=== PATIENT | female | born 1960 | race Caucasian/White ===

== ENCOUNTER 2019-10-07 15:47 | Outpatient (CLI) | payer MEDICARE, SELFPAY ==
--- NOTE | 2019-10-07 15:45 | USCV_ITS ---
Danae Blas Age: 59 Gender: F : 1960 Exam Date: 10/07/2019 16:10 Ordering Phys: Chai Arechiga MD ([email or web address]) Technologist: Prabhakar Powell Exam Location: [facility] – [place] Indication: SOB SOB BP: 130 / 89 HR: 60 Rhythm: Sinus Technical Quality: Fair MEASUREMENTS (Male / Female) Normal Values 2D ECHO LV Diastolic Diameter PLAX 3.5 cm 4.2 - 5.9 / 3.9 - 5.3 cm LV Systolic Diameter PLAX 2.0 cm IVS Diastolic Thickness 1.0 cm 0.6 - 1.0 / 0.6 - 0.9 cm IVS Systolic Thickness 1.4 cm LVPW Diastolic Thickness 1.0 cm 0.6 - 1.0 / 0.6 - 0.9 cm LVPW Systolic Thickness 1.5 cm LVOT Diameter 2.2 cm LV Ejection Fraction 2D Teich 74.2 % LV Ejection Fraction MOD 2C 67.8 % LV Ejection Fraction 2C AL 67.5 % LA Diameter 4.3 cm LA Width 3.7 cm LA Height 4.2 cm RA Width 3.6 cm RA Height 4.5 cm M-MODE LV Diastolic Diameter MM 5.5 cm 4.2 - 5.9 / 3.9 - 5.3 cm LV Systolic Diameter MM 3.2 cm LV Ejection Fraction MM Teich 72.4 % IVS Diastolic Thickness MM 1.0 cm 0.6 - 1.0 / 0.6 - 0.9 cm IVS Systolic Thickness MM 1.5 cm LVPW Diastolic Thickness MM 1.2 cm 0.6 - 1.0 / 0.6 - 0.9 cm LVPW Systolic Thickness MM 2.1 cm RV Diastolic Diameter MM 1.4 cm Aortic Annulus Diameter 4.0 cm LA Ao Ratio MM 1.1 MV E Point Septal Separation 1.3 cm DOPPLER AV Peak Velocity 160.0 cm/s LVOT Peak Velocity 93.0 cm/s AV Area Cont Eq vti 2.7 cm squared AV Area Cont Eq pk 2.1 cm squared MV Area PHT 5.0 cm squared Mitral E to A Ratio 0.8 MV E' Velocity 7.0 cm/s Mitral E to MV E' Ratio 14.1 Mitral E to LV E' Lateral Ratio 12.4 Mitral E to LV E' Septal Ratio 16.5 TR Peak Velocity 283.0 cm/s TR Peak Gradient 32.1 mmHg Right Atrial Pressure 3.0 mmHg Pulmonary Artery Systolic Pressu 35.0 mmHg FINDINGS Left Ventricle Normal left ventricular cavity size. Normal left ventricular systolic function. Left ventricular ejection fraction is estimated at 65 %. No regional wall motion abnormalities. Grade I/IV diastolic dysfunction (abnormal relaxation filling pattern), normal to mildly elevated filling pressures. Right Ventricle The right ventricle is normal in size and function. Right Atrium The right atrium is normal in size. Left Atrium The left atrium is normal in size. Mitral Valve Thickened mitral valve. No mitral valve stenosis. Moderate mitral annular calcification. No mitral valve regurgitation. Aortic Valve Structurally normal aortic valve without significant sclerosis or stenosis. There is no aortic regurgitation. Tricuspid Valve Structurally normal tricuspid valve without significant stenosis or regurgitation. Pulmonary artery systolic pressure is normal. Pulmonic Valve Structurally normal pulmonic valve without significant stenosis. There is no pulmonic regurgitation. Pericardium Normal pericardium without effusion. Aorta Normal ascending aorta dimension. CONCLUSIONS 1-Normal left ventricular cavity size. Normal left ventricular systolic function. Left ventricular ejection fraction is estimated at 65 %. No regional wall motion abnormalities. Grade I/IV diastolic dysfunction (abnormal relaxation filling pattern), normal to mildly elevated filling pressures. 2-Thickened mitral valve. No mitral valve stenosis. Moderate mitral annular calcification. No mitral valve regurgitation. 3-No significant valve abnormalities. 4-There is no pericardial effusion. 5-Pulmonary artery systolic pressure is within normal limits. 6-No significant change since the prior echocardiogram study of 01/15/2018. Chai Arechiga MD (Electronically Signed) Final Date: 07 Oct 2019 17:00 S
== END 2019-10-07 15:48 | disposition home or self-care (01) ==
LOC: RAD 15:52
PROVIDERS: PCP Internal Medicine; Visit Provider Internal Medicine Cardiovascular Disease
DX: R06.02 Shortness of breath (principal); I05.9 Rheumatic mitral valve disease, unspecified
CPT/HCPCS: 93306

== ENCOUNTER 2019-10-17 10:38 | Outpatient (CLI) | payer MEDICARE, SELFPAY ==
--- NOTE | 2019-10-17 10:56 | MR_ITS ---
WS: [id number] MRI LUMBAR SPINE NONCONTRAST HISTORY: DDD / LUMBOSACRAL SPINE W/ RADICULOPATHY, RIGHT leg pain and numbness. COMPARISON: 08/27/2017 TECHNIQUE: Sagittal and axial multisequence imaging is submitted. Mild S-shaped curvature thoracolumbar spine. Lumbar curvature with convexity to the LEFT. The L5 vertebral body is partially sacralized versus 4 lumbar vertebral bodies. If surgery is contemp lated in this patient this numbering pattern and correlation with this MRI would be very important. Mild disc space desiccation at L3-4, L4-5 with a rudimentary disc at L5-S1. Conus terminates normally at mid L1. L1-L2: Normal. L2-L3: Normal. L3-L4: Mild asymmetric bulging of the disc. There is increased soft tissue in and moderate stenosis o f the RIGHT foramen. Increased soft tissue in the RIGHT foramen may be secondary disc protrusion or m ild enlargement of the nerve root. At the disc level there is no significant central stenosis. Just i nferior to the disc level there is mild central and subarticular recess stenosis. Increase fluid in t he facet joints. L4-L5: Diffuse annular disc bulging. Ligamentum flavum hypertrophy. There is moderate central, subart icular recess stenosis with mild bilateral foraminal stenosis. Increase fluid in the facet joints. L5-S1: Small rudimentary disc. MR/MR lumbar spine wo con* [id number] IMPRESSION: 1. L5 vertebral body is partially sacralized versus 4 lumbar vertebral bodies. Numbering pattern will be very important if surgery is contemplated in this pa tient to ensure the correct levels are evaluated. Rudimentary ribs are noted at T12 on a prior CT from 08/27/2017. 2. Moderate central, subarticular recess stenosis and mild foraminal stenosis at L4-5 due to combination of factors. 3. Mild central, subarticular recess stenosis at L3-4 with moderate RIGHT fora yadi stenosis. There may be a small disc protrusion in the RIGHT foramen or mi ld enlargement of the nerve. 4. Increase fluid in the facet joints of L3-4 and L4-5.
== END 2019-10-17 10:39 | disposition home or self-care (01) ==
PROVIDERS: PCP Internal Medicine; Visit Provider Internal Medicine
DX: M51.17 Intervertebral disc disorders with radiculopathy, lumbosacral region (principal); M79.604 Pain in right leg; M46.96 Unspecified inflammatory spondylopathy, lumbar region; M48.061 Spinal stenosis, lumbar region without neurogenic claudication
CPT/HCPCS: 72148

== ENCOUNTER → 2019-10-19 10:56 | Outpatient (BNVA) | payer MEDICARE, SELFPAY | PROVIDERS: PCP Internal Medicine; Referring Provider Internal Medicine; Visit Provider Internal Medicine Critical Care Medicine | DX: D86.0 Sarcoidosis of lung (principal) | CPT/HCPCS: 36415; 82164 ==

== ENCOUNTER → 2019-10-27 13:32 | Outpatient (BNVA) | payer MEDICARE, SELFPAY | PROVIDERS: PCP Internal Medicine; Referring Provider Internal Medicine; Visit Provider Anesthesiology Pain Medicine | DX: M54.9 Dorsalgia, unspecified (principal); M54.41 Lumbago with sciatica, right side | CPT/HCPCS: 99204 ==

== ENCOUNTER → 2020-01-20 09:01 | Outpatient (BNVA) | payer MEDICARE, SELFPAY | PROVIDERS: PCP Internal Medicine; Visit Provider Internal Medicine | DX: Z11.59 Encounter for screening for other viral diseases (principal) | CPT/HCPCS: 87635 ==

== ENCOUNTER 2020-01-24 10:06 | Outpatient (CLI) | payer MEDICARE, SELFPAY ==
--- NOTE | 2020-01-24 10:12 | MM_ITS ---
WS: [id number] BILATERAL SCREENING DIGITAL MAMMOGRAM WITH CAD HISTORY: SCREENING COMPARISON: 10/22/2018 and 05/28/2017 Bilateral CC and MLO views submitted. Computer aided detection analyzed. Breast composition: There are scattered areas of fibroglandular density. No suspicious masses, microc alcifications or architectural distortion. Benign calcifications in each breast. MM/[place] [id number] IMPRESSION: BI-RADS: 2-Benign FOLLOW UP: 1 Year Follow-up
== END 2020-01-24 10:07 | disposition home or self-care (01) ==
LOC: RADSHAW 10:10
PROVIDERS: PCP Internal Medicine; Visit Provider Internal Medicine
DX: Z12.31 Encounter for screening mammogram for malignant neoplasm of breast (principal)
CPT/HCPCS: 77067

== ENCOUNTER 2020-01-24 10:40 | Outpatient (CLI) | payer MEDICARE, SELFPAY ==
--- NOTE | 2020-01-24 13:55 | PFTS_ITS ---
Date of Study:01/24/20 Date of Dictation: MECHANICS: Forced vital capacity (FVC) is . Normal Forced expiratory volume in one second (FEV1) is . Normal FEV1/FVC is Normal FLOW VOLUME LOOP: . Normal . LUNG VOLUMES: Total lung capacity (TLC) is . Normal. Residual volume (RV) is . Normal. DIFFUSING CAPACITY FOR CARBON MONOXIDE:. Normal . INTERPRETATION: The pulmonary function tests are Normal MTDD
== END 2020-01-24 10:41 | disposition home or self-care (01) ==
LOC: RT 10:41
PROVIDERS: PCP Internal Medicine; Visit Provider Internal Medicine Critical Care Medicine
DX: D86.9 Sarcoidosis, unspecified (principal)
CPT/HCPCS: 94010; 94726; 94729

== ENCOUNTER → 2020-03-15 12:48 | Outpatient (BNVA) | payer MEDICARE, SELFPAY | PROVIDERS: PCP Internal Medicine; Visit Provider Dermatology | DX: D48.9 Neoplasm of uncertain behavior, unspecified (principal) | CPT/HCPCS: 88304 ==

== ENCOUNTER 2020-04-03 11:24 | Outpatient (CLI) | payer MEDICARE, SELFPAY ==
--- NOTE | 2020-04-03 11:34 | XR_ITS ---
WS: [id number] Exam: XR chest 2V* [id number] Date/Time of Exam: 04/03/2020 11:36 AM Reason For Exam: COUGH/WHEEZE Comparison 10/12/2018. The lungs are clear and fully expanded. Normal cardiomediastinal structures and bony elements. Extens ollie calcified pulmonary and mediastinal granulomas. No pleural effusions. XR/XR chest 2V* [id number] IMPRESSION: 1. No acute cardiopulmonary finding. 2. Extensive healed granulomatous disease.
== END 2020-04-03 11:25 | disposition home or self-care (01) ==
LOC: RAD 11:29
PROVIDERS: PCP Internal Medicine; Visit Provider Internal Medicine
DX: R05 Cough (principal); R06.2 Wheezing
CPT/HCPCS: 71046

== ENCOUNTER 2020-05-29 13:12 | Outpatient (CLI) | payer MEDICARE, SELFPAY ==
--- NOTE | 2020-05-29 13:22 | XR_ITS ---
WS: [id number] CHEST 2 VIEWS HISTORY: COUGH COMPARISON: 04/03/2020 Lungs: Well aerated lungs. There are extensive calcifications in the mediastinum and hilar and along the diaphragmatic surfaces bilaterally. Probably due to prior granulomatous disease. No interval walters ge. Cardiac size: Normal. Mediastinum/Aorta: Mild atherosclerosis aorta. Extensive calcified mediastinal and hilar lymph nodes. Bones: Normal. XR/XR chest 2V* [id number] IMPRESSION: 1. Stable chest with no acute cardiopulmonary disease. 2. Extensive mediastinal and hilar and diaphragmatic calcifications from prior granulomatous disease.
== END 2020-05-29 13:13 | disposition home or self-care (01) ==
LOC: RADWPI 13:20
PROVIDERS: PCP Internal Medicine; Visit Provider Nurse Practitioner Family
DX: R05 Cough (principal)
CPT/HCPCS: 71046

== ENCOUNTER 2020-08-22 10:37 | Outpatient (CLI) | payer MEDICARE, SELFPAY ==
--- NOTE | 2020-08-22 10:53 | XR_ITS ---
WS: [id number] Chest 2 views, 08/22/2020 Clinical Data: SOB Comparison: PA and lateral chest, 05/29/2020. Findings: No nodules, masses or effusions are seen. The heart is normal. The pulmonary vascularity is not increased. No pneumonia or pneumothorax is seen. Extensive granulomatous calcifications are seen in both prashant and the lower lobes. XR/XR chest 2V* [id number] Impression: Old granulomatous disease.
[2020-08-22 11:37] LABS: Basophils # 0.1 10^3/uL (0.0-0.1); Basophils % 1.1 %; Eosinophils # 0.3 10^3/uL (0.0-0.8); Eosinophils % 3.5 %; Hematocrit 38.9 % (37.0-47.0); Hemoglobin 12.1 g/dL (11.5-15.3); Lymphocytes # 2.3 10^3/uL (0.8-4.8); Lymphocytes % 30.9 %; Mean Corpuscular HGB Conc 31.1 g/dL (30.0-36.0); Mean Corpuscular Hemoglobin 28.5 pg (28.0-34.0); Mean Corpuscular Volume 91.5 fL (81-99); Mean Platelet Volume 10.9 fL (7.4-10.4); Monocytes # 0.4 10^3/uL (0.2-0.9); Monocytes % 5.6 %; Neutrophils # 4.42 10^3/uL (1.8-7.7); Neutrophils % 58.6 %; Nucleated Red Blood Cells % 0 %; Platelet Count 280 10^3/cmm (130-400); Red Blood Count 4.25 10^6/uL (4.1-5.3); Red Cell Distribution Width 14.2 % (12.1-15.1); White Blood Count 7.5 10^3/uL (4.0-10.0)
[2020-08-23 16:47] LABS: Alternaria Alternata (M6) Ige <0.10 kU/L; Alternaria Class 0; Bermuda Class 0; Bermuda Grass (G2) Ige <0.10 kU/L; Cat Dander (E1) Ige <0.10 kU/L; Cat Dander Class 0; Common Ragweed (Short) (W1) Ig <0.10 kU/L; D. Farinae Class 0; Dermatophagoides Class 0; Dermatophagoides Farinae (D2) <0.10 kU/L; Dermatophagoides Pteronyssinus <0.10 kU/L; Dog Dander (E5) Ige <0.10 kU/L; Dog Dander Class 0; Elm (T8) Ige <0.10 kU/L; Elm Class 0; English Plantain (W9) Ige <0.10 kU/L; English Plantain Class 0; House Dust (Greer) (H1) Ige <0.10 kU/L; House Dust (Hollister- Stier) <0.10 kU/L; House Dust Class 0; Immunoglobulin E 128 kU/L (<OR=114); Johnson Grass (G10) Ige <0.10 kU/L; Johnson Grass Cl 0; June Grass Class 0; June Grass(Kentucky Blue) (G8) <0.10 kU/L; Lamb'S Quarters (Goose Foot) <0.10 kU/L; Lamb'S Quarters Class 0; Maple (Box Elder) (T1) Ige <0.10 kU/L; Maple Class 0; Meadow Fescue (G4) Ige <0.10 kU/L; Meadow Fescue Class 0; Mucor Racemosus Class 0; Oak (T7) Ige <0.10 kU/L; Oak Class 0; Orchard Grass (Cocksfoot) (G3) <0.10 kU/L; Penicillium Class 0; Penicillium Notatum (M1) Ige <0.10 kU/L; Perennial Rye Grass (G5) Ige <0.10 kU/L; Perennial Rye Grass Class 0; Ragweeed Class 0; Rough Marsh Elder (W16) Ige <0.10 kU/L; Rough Marsh Elder Class 0; Sweet Vernal Class 0; Sweet Vernal Grass (G1) Ige <0.10 kU/L; Timothy Grass (G6) Ige <0.10 kU/L; Timothy Grass Class 0
[2020-08-27 15:28] LABS: Aspergillus Fumigatus, Igg Ab, 11.3 mg/L (<=102)
[2020-08-27 16:33] LABS: Immunoglobulin E 149 kU/L (<OR=114)
== END 2020-08-22 10:38 | disposition home or self-care (01) ==
PROVIDERS: PCP Internal Medicine; Visit Provider Internal Medicine Critical Care Medicine
DX: R06.02 Shortness of breath (principal)
CPT/HCPCS: 36415; 71046; 82785; 85025; 86003

== ENCOUNTER 2020-08-30 08:36 | Outpatient (CLI) | payer MEDICARE, SELFPAY ==
--- NOTE | 2020-08-30 08:49 | CT_ITS ---
WS: [id number] CT NECK TECHNIQUE: Contrast-enhanced CT of the neck with coronal and sagittal reformatted images. CLINICAL INFORMATION: DYSPHONIA COMPARISON: None. DLP: 2464.[address] scans at [facility] use at least one of these dose optimization techniques: automat ed exposure control; mA and/or kV adjustment per patient size (includes targeted exams where dose is matched to clinical indication); or iterative reconstruction. FINDINGS: Left mastoids are well aerated. Opacification right mastoid air cells. Paranasal sinuses ar e well aerated. Right middle ear opacification. Parotid glands are normal. Normal submandibular glands. No cervical lymphadenopathy. Normal thyroid g land. Normal parapharyngeal fat. Normal posterior nasopharynx. No evidence of supraglottic or glottic mass. Subglottic airway is normal. Calcified mediastinal and hilar lymph nodes consistent with histo ry of sarcoidosis. A few patchy opacities in the upper lobes with slight nodularity likely due to farzana coidosis. Normal cervical spine. Calcified meningioma along the right frontal lobe measuring 12 mm appears unchanged compared to the [facility] MRI . Calcified right temporal meningioma also appears unchanged measuring [address]/CT neck w con* [id number] IMPRESSION: 1. Normal posterior nasopharynx. No evidence of supraglottic or glottic mass. Normal piriform sinuses. Normal subglottic airway. 2. Salivary glands are normal. 3. No cervical lymphadenopathy. 4. Calcified right frontal and right temporal meningiomas appear unchanged sin ce the prior MRI March 06, 2019 5. Complete opacification of the right mastoid air cells with right otitis med ia. Left mastoid air cells well aerated. 6. Paranasal sinuses are well aerated. 7. No cervical lymphadenopathy.
[2020-08-30] MEDS: iohexol 300 mg/mL 100 mL Btl IV (09:23)
== END 2020-08-30 08:37 | disposition home or self-care (01) ==
PROVIDERS: PCP Internal Medicine; Visit Provider Specialist
DX: R49.0 Dysphonia (principal)
CPT/HCPCS: 70491; Q9967

== ENCOUNTER → 2020-09-14 13:48 | Outpatient (BNVA) | payer MEDICARE, SELFPAY | PROVIDERS: PCP Internal Medicine; Visit Provider Internal Medicine Cardiovascular Disease | DX: Z01.812 Encounter for preprocedural laboratory examination (principal); Z20.822 Contact with and (suspected) exposure to COVID-19 | CPT/HCPCS: 87635 ==

== ENCOUNTER 2020-09-20 06:04 | Day surgery (SDC) | payer MEDICARE, SELFPAY ==
[2020-09-14 13:23] LABS: Basophils # 0.1 10^3/uL (0.0-0.1); Basophils % 1.1 %; Eosinophils # 0.3 10^3/uL (0.0-0.8); Eosinophils % 3.9 %; Hematocrit 38.6 % (37.0-47.0); Hemoglobin 12.1 g/dL (11.5-15.3); Lymphocytes # 2.2 10^3/uL (0.8-4.8); Lymphocytes % 29.2 %; Mean Corpuscular HGB Conc 31.3 g/dL (30.0-36.0); Mean Corpuscular Hemoglobin 28.1 pg (28.0-34.0); Mean Corpuscular Volume 89.6 fL (81-99); Mean Platelet Volume 11.2 fL (7.4-10.4); Monocytes # 0.7 10^3/uL (0.2-0.9); Monocytes % 9.2 %; Neutrophils # 4.17 10^3/uL (1.8-7.7); Neutrophils % 56.5 %; Nucleated Red Blood Cells % 0 %; Platelet Count 315 10^3/cmm (130-400); Red Blood Count 4.31 10^6/uL (4.1-5.3); Red Cell Distribution Width 13.6 % (12.1-15.1); White Blood Count 7.4 10^3/uL (4.0-10.0)
[2020-09-14 13:37] LABS: INR 1.01 (0.8-1.2)
[2020-09-14 13:46] LABS: Anion Gap 14.5 (5-19); Blood Urea Nitrogen 24 mg/dL (8-23); Carbon Dioxide 31 mmol/L (22-29); Chloride 94 mmol/L (98-107); Glomerular Filtration Rate 63.7 mL/min (90-130); Glucose 188 mg/dL (65-115); Osmolality Calculated 291 mOsm/kg (285-295); Potassium 3.5 mmol/L (3.5-5.1); Sodium 136 mmol/L (136-145)
[2020-09-20] VITALS (9 sets, daily range): BP systolic 123–156; BP diastolic 73–85; PULSE 76–96; RESP 14–23; TEMP 36.4–36.8; O2SAT 95–98; BMI 39.6
--- NOTE | 2020-09-20 06:00 | XACV_ITS ---
Exam Room: [facility] Ht: 157 cm Wt: 98 kg BSA: 2.13 m2 Gender: Female : 1960 Any Known Allergies: Sulfa Exam Priority: Routine Procedure(s): Procedure Description: Diagnostic procedure Procedure Description: Left Heart Catheterization Procedure Description: Right Heart Catheterization Procedure Description: O2 saturation Procedure Description: Pressure Wire Diagnostic Cath Status: Elective Diagnostic Findings * Left Main has no disease. * Left Anterior Descending has no disease. * Circumflex has no disease. * Mid Right Coronary Artery: obstructive 60% stenosis, LYNN: 3 flow. * Distal Right Coronary Artery: minimal 30% stenosis, LYNN: 3 flow. * Coronary angiography shows right dominance. Conclusions 1. Right heart cath 2. Right atrium 3. 9 mmHg 4. RV 48/2 30 mmHg meanPA mean 29 mmHgPCW 13 mmHgCardiac output by Henrietta 5Cardiac index 2.0No shunt or stepup notedMild precapillary pulmonary hypertension 5. . 6. FFR: After equalizing the distal and proximal pressure of FFR wire proximal to the lesion, mid and distal RCA lesion was crossed with FFR wire. IV adenosine at rate of 140 mcg/min was started. Patient did not compliant of any symptoms, at then end of two minutes FFR was recorded as 0.83, which is not significant . 7. Indication for 8. left heart 9. and right heart catheterization 10. : Worsening of 11. shortness of breath chest pain 12. despite of optimization of medicine 13. and the patient with history of 14. prior coronary artery disease.. 15. There is obstructive coronary artery disease with one vessel disease. 16. Hyperdynamic left ventricular systolic function. Ejection fraction of 70%. Recommendations * Continue current medical management and risk factor modification. Diagnostic RX Recommendation: medical therapy and/or counseling Ventriculography Ejection Fraction: 70.0 % Pressures Phase:Rest AO : 160 / 25 ( 86 ) @ 7:21:00 AM LV : 161 / -11 / 22 @ 7:19:00 AM 161 / -10 / 23 @ 7:19:00 AM 153 / -4 / 22 @ 7:20:00 AM 156 / -4 / 25 @ 7:20:00 AM RV : 48 / 2 / 13 @ 6:49:00 AM PA : 47 / 18 ( 29 ) @ 6:48:00 AM RA : a wave = 13 v wave = 12 mean = 9 @ 6:52:00 AM PCW : a wave = 18 v wave = 15 mean = 13 @ 6:49:00 AM O2 Content Phase:Rest PA : O2 Content O2: 61.9 @ 7:19:00 AM Saturations Phase:Rest AO : 88 @ 7:21:00 AM RA : 67 @ 7:19:00 AM RV : 62 @ 7:20:00 AM PA : 62 @ 7:19:00 AM Cardiac Output Phase:Rest Henrietta : 5 @ 8:45:58 AM Henrietta Cardiac Index: 2 @ 8:45:58 AM Flow Phase:Rest Qp : 5 @ 8:45:58 AM Qs : 6 @ 8:45:58 AM Clinical Evaluation EBL: 5mL-10mL Procedural Details Procedure Consent Obtained. Admit Source: Out Patient. Identified patient by full name and date of as verbalized by the patient/guarantor. Pre-Procedure Time Out. Does the consent match the physician's order: Yes. Accurate & Complete Informed Consent: Yes. Inpatient/Outpatient History & Physical on Chart: Yes. If H&P is completed, is and addenduem needed: Yes; If yes, is the addendum complete: N/A. Visualize and Verify Site with Patient/Guarantor: N/A. Relevant Radiology Images available: N/A. Pre-op teaching completed and patient verbalized understanding. The risks, benefits, and alternatives of sedation and/or procedure were discussed by physician. The patient agrees to continue. Procedure started. Correct patient, site and procedure confirmed by cath team. PERRLA. Strong, equal hand felt tipping machine tender bilaterally. Lungs clear x 5 lobes. IV Site on Arrival: 20 gauge in the right anticubital. IV Site on Arrival: 20 gauge in the left anticubital. Pre Procedural Pulses: bilateral dorsalis pedis was 3+. Pre Procedural Pulses: bilateral posterior tibial was 3+. Pre Procedural Pulses: bilateral radial was 3+. bilateral groins was prepped with chloroprep then draped in the usual sterile fashion. right radial was prepped with chloroprep then draped in the usual sterile fashion. Physician notified. Baseline sample Acquired. HR: 89 BPM. Physician arrived. Physician scrubbed in. Immediate Pre-Procedure Time Out. Correct Patient: Yes; Correct Procedure: Yes; Correct Site: Yes; Correct Patient Position: Yes; Correct Supplies: Yes; Dried Flammable Prep: Yes; Blood Products Available: N/A;. Sheath wire insterded through IV catheter. Lidocaine 1% infiltrated to the right brachial. Venous access obtained. [place] MON catheter inserted. [place] out. Lidocaine 1% infiltrated to the right radial. Arterial access obtained. A 5 [place] TIG catheter in over wire. Multiple views taken of left coronary artery. Catheter redirected to the RCA. Multiple views taken of right coronary artery. Catheter out. 6 [place] JR 4 guide catheter was inserted over the wire. FFR pressure wire inserted. pressure wire out. new pressure wire inserted. An FFR value of 0.83 was obtained for a lesion located at Mid RCA. Pressure wire out. Catheter out. A 5 [place] Angled Pig catheter in over wire. EDP Sample taken: LV 161/-11,22; HR: 91 BPM; SpO2: 99%. LV gram performed in BOLAND @ 10 mL/second for a total of 30 mL. EDP Sample taken: LV 153/-5,22; HR: 90 BPM; SpO2: 99%. Pullback taken: LV Off; AO Off; Mean: , Peak to Peak: , SEP: ; HR: 87 BPM; SpO2: 99%. TR band placed. Hemostasis obtained. PERRLA. Strong, equal hand felt tipping machine tender bilaterally. No VTE prophylaxis required. Medication's Wasted: Lidocaine 1% = 18 mL. Medication's Wasted: Other = adenosine 55.8 mg. Medication's Wasted: Heparin = 4000 units. Medication's Wasted: Nitro = 49.8 mg. Total IV fluids: 100 mL. Contrast type used: Omnipaque 300 mgI/mL, 500 mL bottle. Contrast Material : Omnipaque 142 ml. A TR Band was successful obtaining hemostatsis at the Right Radial artery insertion site. A Manual Compression was successful obtaining hemostatsis at the Right Brachial Vein insertion site. Post-op diagnosis: non obstructive CAD. Complications: none. Estimated blood loss: 5mL-10mL. [facility] Clinical Fraility Score: 3: Managing Well. Oracle Applications Developer Indications: Worsening Angina. Oracle Applications Developer Indications: Stable Known CAD. Chest Pain Symptom Assessment: Atypical Angina. Cardiovascular Instability: No,. Procedure completed. Patient transferred by wheelchair to ICU. Vital chart was stopped. Access Site Site: Right Brachial Vein Sheath Size: 6 Fr Hemostasis Method: Manual Compression Hemostasis Success: Successful Site: Right Radial artery Sheath Size: 6 Fr Hemostasis Method: TR Band Hemostasis Success: Successful Procedure Medications Start: 7:40 AM Stop: 7:40 AM Medication: Versed Amount: 1 mg Route: I.V. Start: 7:40 AM Stop: 7:40 AM Medication: Fentanyl Amount: 50 mcg Route: I.V. Start: 7:56 AM Stop: 7:56 AM Medication: Nitrogylcerin Amount: 200 mcg Route: I.A. Start: 8:00 AM Stop: 8:00 AM Medication: Versed Amount: 1 mg Route: I.V. Start: 8:00 AM Stop: 8:00 AM Medication: Fentanyl Amount: 50 mcg Route: I.V. Start: 8:04 AM Stop: 8:04 AM Medication: Heparin Amount: 2000 units Route: I.V. Start: 8:01 AM Stop: 8:01 AM Medication: Heparin Amount: 5000 units Route: I.V. I, the attending physician, have reviewed and verified all procedure medications. Yes, all medications given per verbal order History/Risk Factors Hypertension: Yes Dyslipidemia: Yes Myocardial Infarction (HI): Yes Tobacco Use: Never Prior Interventions PCI: Yes Report Signatures Finalized by Chai Arechiga MD on 10/02/2020 10:56 AM
[2020-09-20] MEDS: diphenhydrAMINE 50 mg Capsule PO (06:24)
--- NOTE | 2020-09-20 07:30 | P.HP_ITS ---
Same Day Surgery H&P Indication for Procedure/HPI DATE OF PROCEDURE: September 20, 2020 CHIEF COMPLAINT/INDICATIONFOR SURGICAL PROCEDURE: Unexplained shortness of breath with chest pressure PREOP DIAGNOSIS: Worsening of shortness of breath with chest pressure PLANNED PROCEDRUE: Operation Date: 09/20/20 07:00 Proposed Procedures p Cardiac Catheterization left and right 67082 R06.02(Not Applicable) - Chai Arechiga MD 60-year-old female past medical history significant for hypertension atherosclerotic disease pulmonary sarcoidosis is complaining of worsening of chest pain along with shortness of breath. Shortness of breath hindering the lifestyle. Patient declined offer for stress test. Despite of optimization of medicine patient continues to do worse. She has history of coronary artery disease. Would like to proceed with left and right heart cath to rule out pulmonary hypertension and obstructive disease. Patient has been explained all risk benefit and alternate for the procedure. Patient has been explained risk for major minor bleed urgent emergent surgery multiple transfusions stroke arrhythmia . She would like to proceed with it. Medications/Allergies* Home Medications Medication Instructions Recorded Confirmed Type amlodipine 5 mg tablet 5 mg PO DAILY 09/20/19 08/22/20 History ascorbic acid (vitamin C) 1,000 mg 1,000 mg PO DAILY tab 09/20/19 08/22/20 History tablet cinnamon bark 500 mg capsule 1,000 mg PO DAILY cap 09/20/19 08/22/20 History clopidogrel 75 mg tablet 75 mg PO DAILY 09/20/19 08/22/20 History furosemide 20 mg tablet 20 mg PO DAILY PRN 09/20/19 08/22/20 History metformin 1,000 mg tablet 1,000 mg PO BID 09/20/19 08/22/20 History omega-3 fatty acids 1,000 mg 1,000 mg PO DAILY 09/20/19 08/22/20 History capsule pantoprazole 40 mg tablet,delayed 40 mg PO DAILY 09/20/19 08/22/20 History release valsartan 320 1 tab PO DAILY 09/20/19 08/22/20 History mg-hydrochlorothiazide 25 mg tablet biotin 1,000 mcg chewable tablet 1,000 mcg PO DAILY 10/27/19 08/22/20 History gabapentin 100 mg capsule 100 mg PO TID cap 10/27/19 08/22/20 History verapamil 40 mg tablet 40 mg PO TID tab 10/27/19 08/22/20 History zinc 50 mg tablet 50 mg PO DAILY 10/27/19 08/22/20 History cholecalciferol (vitamin D3) 25 25 mcg PO DAILY 07/13/20 08/22/20 History mcg (1,000 unit) capsule melatonin 5 mg capsule 5 mg PO .HS cap 07/13/20 08/22/20 History potassium chloride 10 mEq 10 meq PO .every other day tab 07/13/20 08/22/20 History tablet,extended release vitamin B complex 1 tab PO DAILY 07/13/20 08/22/20 History albuterol sulfate 90 mcg/actuation 2 puff INHALATION Q6H PRN 08/22/20 08/22/20 History aerosol inhaler Allergies/Adverse Reactions Allergy/AdvReac Type Severity Reaction Status Date / Time Sulfa (Sulfonamide Allergy Unknown break out Verified 08/22/20 09:50 Antibiotics) and has trouble breathing Current Medications: Generic Name Dose Route Start Last Admin Trade Name Freq PRN Reason Stop Dose Admin Sodium Chloride 1,000 mls @ 50 mls/hr 09/20/20 06:00 09/20/20 06:18 Sodium Chloride 0.9% IV 09/21/20 01:59 Not Given .Q20H ONE Pertinent History/Comorbid Conditions* Medical History (Updated 07/17/20 @ 22:19 by Chai Arechiga MD) ASHD (arteriosclerotic heart disease) Chronic migraine Diabetes mellitus Diastolic heart failure History of VT (myocardial infarction) HTN (hypertension) Sarcoidosis Shortness of breath Surgical History (Updated 10/19/19 @ 10:48 by Brian Dean MD) History of elbow surgery History of heart artery stent S/P carpal tunnel release S/P hysterectomy Family History (Updated 10/19/19 @ 10:16 by Dorota Heck LPN) CAD (coronary artery disease) Father Sister Grandfather Family/Other Cancer Mother Father Family/Other Social History Smoking and tobacco status: never smoked Second hand smoke exposure: Yes Alcohol intake: current Alcohol intake frequency: holidays/special occasions only Alcohol type: wine Lives independently: Yes Household members: none Marital status: / Current occupational status: disabled Pets and animals: Yes Pets & animals: dog(s) History of recent travel: No Current gender identity: Female Pertinent Exam Findings alert, oriented x 3 and clear to auscultation bilaterally Conscious Sedation Assessment AIRWAY EVAL/ANESTHESIA PLAN: ASA II, Risks, benefits & alternatives of sedation and/or procedure discussed and Patient agrees to continue as planned Recommendations Surgery/Procedure today Coding Level of Care Code Acute Instrumentation And Controls Technician for Alcides Treviño
[2020-09-20] MEDS: zinc gluconate 50 mg Tablet PO (09:40)
--- NOTE | 2020-09-20 10:50 | PC.NURSE ---
3 ml air removed from TR band.
--- NOTE | 2020-09-20 11:39 | PC.NURSE ---
3 ml air removed from TR band
[2020-09-20] MEDS: ALPRAZolam 0.25 mg Tablet PO (11:53)
--- NOTE | 2020-09-20 11:53 | PC.NURSE ---
PT states that she feels short of breath, more so than usual, Dr. Arechiga in room with pt. New orders received. Xanax .25 given.
[2020-09-20] MEDS: potassium chloride ER 10 mEq Tablet PO (12:08)
[2020-09-20] MEDS: FUROsemide 10 mg/mL SDV 4mL 40 MG IVP (12:08)
--- NOTE | 2020-09-20 12:15 | PC.NURSE ---
3 ml air removed from TR band
--- NOTE | 2020-09-20 14:03 | PC.NURSE ---
TR band released of all air. Had pt wait an additional 20min, then walked the unit 2 times. No bleeding noted. IV removed and pt was allowed to get dressed in prep for discharge.
--- NOTE | 2020-09-20 14:44 | PC.NURSE ---
right brachial and radial artery show no signs of bleeding after monitoring. discharge instructions gone over with pt as well as appointments. Taken out to personal car where her son awaits via wheelchair.
== END 2020-09-20 14:43 | disposition home or self-care (01) ==
LOC: CCL 06:04 → ICU 09:42
PROVIDERS: PCP Internal Medicine; Visit Provider Internal Medicine Cardiovascular Disease
DX: I25.10 Atherosclerotic heart disease of native coronary artery without angina pectoris (principal); E11.9 Type 2 diabetes mellitus without complications; I11.0 Hypertensive heart disease with heart failure; I50.30 Unspecified diastolic (congestive) heart failure; I25.2 Old myocardial infarction; Z82.49 Family history of ischemic heart disease and other diseases of the circulatory system
CPT/HCPCS: 36415; 80048; 85025; 85610; 93453; 93571; C1751; C1769; C1887; C1894; J0153; J1644; J1940; J2250; J3010; J3490; J7030; Q0163; Q9967

== ENCOUNTER 2020-11-29 14:01 | Outpatient (CLI) | payer MEDICARE, SELFPAY ==
--- NOTE | 2020-11-29 14:14 | XR_ITS ---
WS: [id number] Chest 2 views, 11/29/2020 Clinical Data: COUGH Comparison: PA and lateral chest, 08/22/2020. Findings: No nodules, masses or effusions are seen. The heart is normal. The pulmonary vascularity is not increased. No pneumonia or pneumothorax is seen. There are extensive perihilar and lower lobe gr anulomas. XR/XR chest 2V* [id number] Impression: Old granulomatous disease.
== END 2020-11-29 14:02 | disposition home or self-care (01) ==
PROVIDERS: PCP Internal Medicine; Visit Provider Nurse Practitioner Family
DX: R05 Cough (principal); D71 Functional disorders of polymorphonuclear neutrophils
CPT/HCPCS: 71046

== ENCOUNTER 2021-01-06 13:00 | Observation (INO) | payer MEDICARE, SELFPAY ==
[2021-01-06] VITALS (9 sets, daily range): BP systolic 110–148; BP diastolic 68–78; PULSE 63–79; RESP 16–18; TEMP 36.6–36.7; O2SAT 93–97; BMI 34.2
--- NOTE | 2021-01-06 14:11 | ECG_ITS ---
[facility] Test Date: 2021-01-06 Pat Name: Danae Blas Department: Room: Gender: Female Seismic Engineer: : 1960 Requested By: Gael Victor Order Number: [id number] Rebel MD: Lea Anderson M.D. Measurements Intervals [place] Rate: 78 P: 20 ID: 175 QRS: -81 QRSD: 101 T: 22 QT: 399 QTc: 454 Interpretive Statements SINUS RHYTHM POSSIBLE LEFT ATRIAL ENLARGEMENT LEFT AXIS DEVIATION INCOMPLETE RIGHT BUNDLE BRANCH BLOCK SEPTAL MYOCARDIAL INFARCTION , OF INDETERMINATE AGE Compared to ECG 08/27/2017 18:20:47 Left-axis deviation now present Incomplete right bundle-branch block now present Myocardial infarct finding now present Indeterminate axis no longer present Electronically Signed On 01-07-2021 13:11:30 CDT by Lea Anderson M.D. [id number]
--- NOTE | 2021-01-06 14:11 | CTR_ITS ---
PROCEDURE INFORMATION: Exam: CT Head Without Contrast Exam date and time: 01/06/2021 2:11 PM Age: 60 years old Clinical indication: Syncope and collapse TECHNIQUE: Imaging protocol: Computed tomography of the head without contrast. Radiation optimization: All CT scans at this facility use at least one of these dose optimization techniques: automated exposure control; mA and/or kV adjustment per patient size (includes targeted exams where dose is matched to clinical indication); or iterative reconstruction. COMPARISON: MRI Head w/wo* [id number] 01/04/2015 10:52 AM RADIATION DOSE METRICS: Total DLP (mGy-cm): 620.76 FINDINGS: Brain: Normal. No hemorrhage. Mild low attenuation signal within the deep white matter tracts suggestive of chronic small vessel ischemic disease. No mass effect. Cerebral ventricles: No ventriculomegaly. Paranasal sinuses: Visualized sinuses are unremarkable. No fluid levels. Mastoid air cells: Right mastoid effusion without corresponding erosive changes. Orbital cavity: Post cataract surgical changes of the left globe. Bones/joints: Unremarkable. No acute fracture. Soft tissues: Unremarkable. CT/CT head wo con* [id number] IMPRESSION: 1. No acute intracranial abnormality. 2. Right mastoid effusion. Radiation Dose CTDIVOL = (mGy): DLP = 620.76 (mGy-cm)
--- NOTE | 2021-01-06 14:11 | CTR_ITS ---
PROCEDURE INFORMATION: Exam: CT Angiography Head With Contrast, Arteriography Exam date and time: 01/06/2021 2:11 PM Age: 60 years old Clinical indication: Syncope and collapse; Additional info: Evaluate for vessel diseases TECHNIQUE: Imaging protocol: Computed tomography angiography of the head with contrast. Exam focused on the arteries. 3D rendering (Not supervised by radiologist): MIP and/or 3D reconstructed images were created by the technologist. Radiation optimization: All CT scans at this facility use at least one of these dose optimization techniques: automated exposure control; mA and/or kV adjustment per patient size (includes targeted exams where dose is matched to clinical indication); or iterative reconstruction. Contrast material: OMNI 350; Contrast volume: 95 ml; Contrast route: INTRAVENOUS (IV); COMPARISON: CT head wo con* [id number] 01/06/2021 3:41 PM RADIATION DOSE METRICS: Total DLP (mGy-cm): 2070. FINDINGS: ANTERIOR CIRCULATION: Right internal carotid artery: Unremarkable. Intracranial segment is patent with no significant stenosis. No aneurysm. Right middle cerebral artery: Unremarkable. No occlusion or significant stenosis. No aneurysm. Right anterior cerebral artery: Unremarkable. No occlusion or significant stenosis. No aneurysm. Left internal carotid artery: Unremarkable. Intracranial segment is patent with no significant stenosis. No aneurysm. Left middle cerebral artery: Unremarkable. No occlusion or significant stenosis. No aneurysm. Left anterior cerebral artery: Unremarkable. No occlusion or significant stenosis. No aneurysm. POSTERIOR CIRCULATION: Right vertebral artery: Unremarkable. No occlusion or significant stenosis. No aneurysm. Left vertebral artery: Unremarkable. No occlusion or significant stenosis. No aneurysm. Basilar artery: Unremarkable. No occlusion or significant stenosis. No aneurysm. Right posterior cerebral artery: Unremarkable. No occlusion or significant stenosis. No aneurysm. Left posterior cerebral artery: Unremarkable. No occlusion or significant stenosis. No aneurysm. Brain: No definite mass, mass effect, or midline shift. Cerebral ventricles: No ventriculomegaly. Bones/joints: Unremarkable. No acute fracture. Soft tissues: Unremarkable. IMPRESSION: No large vessel stenosis or occlusion. PROCEDURE INFORMATION: Exam: CT Angiography Neck With Contrast Exam date and time: 01/06/2021 2:11 PM Age: 60 years old Clinical indication: Syncope and collapse; Additional info: Evaluate for vessel diseases TECHNIQUE: Imaging protocol: Computed tomography angiography of the neck with contrast. 3D rendering (Not supervised by radiologist): MIP and/or 3D reconstructed images were created by the technologist. Radiation optimization: All CT scans at this facility use at least one of these dose optimization techniques: automated exposure control; mA and/or kV adjustment per patient size (includes targeted exams where dose is matched to clinical indication); or iterative reconstruction. Contrast material: OMNI 350; Contrast volume: 95 ml; Contrast route: INTRAVENOUS (IV); COMPARISON: CT head wo con* [id number] 01/06/2021 3:41 PM RADIATION DOSE METRICS: Total DLP (mGy-cm): 2070.1 FINDINGS: Right common carotid artery: Atherosclerotic calcification and mild narrowing of the carotid bulb less than 50%. No dissection or occlusion. Right internal carotid artery: Mild narrowing of the proximal internal carotid artery less than 50% narrowing by NASCET criteria. No dissection or occlusion. Right external carotid artery: No occlusion or stenosis of the origin. Left common carotid artery: Atherosclerotic calcification and mild narrowing at the carotid bulb less than 50%. No dissection or occlusion. Left internal carotid artery: Mild narrowing at the proximal internal carotid artery less than 50% narrowing by NASCET criteria. No dissection or occlusion. Left external carotid artery: No occlusion or stenosis of the origin. Right vertebral artery: No stenosis. No dissection or occlusion. Left vertebral artery: No stenosis. No dissection or occlusion. Lymph nodes: Numerous calcified mediastinal lymph nodes are noted suggestive of prior granulomatous disease. Soft tissues: Normal. No significant soft tissue swelling. Bones/joints: No acute fracture. Lungs: Calcified granulomas noted in the right upper lobe. CT/CT angio headneck* [id number] IMPRESSION: Mild stenosis at the common carotid bulbs and proximal internal carotid arteries. No significant stenosis or occlusion. REFERENCES: NASCET CRITERIA. The degree of internal carotid artery stenosis is based on NASCET criteria. Normal is no stenosis. Mild is less than 50% stenosis. Moderate is 50-69% stenosis. Severe is 70% to 99% stenosis. Total occlusion is no detectable patent lumen. Radiation Dose CTDIVOL = (mGy): DLP = 2071.1~2071.1 (mGy-cm)
[2021-01-06] MEDS: sodium chloride 0.9% 500 ML IV (14:48)
[2021-01-06] MEDS: magnesium sulfate premix 2 GM/50 ML PIGGYBACK IV (14:48)
[2021-01-06] MEDS: diphenhydrAMINE 50 mg/mL SDV 1mL IVP (14:49)
[2021-01-06] MEDS: acetaminophen 500 mg Tablet PO (14:49)
--- NOTE | 2021-01-06 14:51 | W.ED.GENADLT ---
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 Patient says that she leans to her right side. The headache has been going on for the last 2 weeks has been gradually getting worse. Patient denies any focal weakness, diplopia, slurring of speech, facial droop. Patient denies any associated chest pain, shortness breath, palpitation with symptoms. Earlier today, patient was walking at home when she almost passed out twice. Patient denies any nausea vomiting, diarrhea, melena or hematochezia, or complaints at this time. Patient is followed by Dr. Flores in cardiology. Patient had an evaluation 2 weeks ago. Onset:2 weeks ago Duration:2 weeks Location:home Severity:moderate Review of Systems Narrative: Constitutional: No fever, no chills. HEENT: + photophobia CV: No chest pain, no palpitations PULM: no cough, no dyspnea. GI: No abdominal pain, no N/V/D. : No dysuria MSKEL: No muscle pain SKIN: No new rashes, no lesions. NEURO: +headache, no focal weakness. +light-headedness/+gait instability HEME: No visible bruises PSYCH: Normal mood PFSH ED PFSH: Medical History ASHD (arteriosclerotic heart disease) Chronic migraine Diabetes mellitus Diastolic heart failure History of [place] (myocardial infarction) HTN (hypertension) Sarcoidosis Shortness of breath Surgical History History of elbow surgery History of heart artery stent S/P carpal tunnel release S/P hysterectomy Family History Mother Cancer Father Cancer CAD (coronary artery disease) Family/Other Cancer Sister CAD (coronary artery disease) Grandfather CAD (coronary artery disease) Family/Other CAD (coronary artery disease) Social History (Reviewed 12/14/20 @ 10:58 by YANETH Luis Smoking and tobacco status: never smoked Second hand smoke exposure: Yes Alcohol intake: current Alcohol intake frequency: holidays/special occasions only Alcohol type: wine Lives independently: Yes Household members: none Marital status: / Current occupational status: disabled Pets and animals: Yes Pets & animals: dog(s) History of recent travel: No Current gender identity: Female Physical Exam Narrative: EXAM NARRATIVE: Head: Atraumatic Eyes: PERRL, conjunctiva without injection ENT: Mucous membrane moist NECK: Supple, ROM intact LUNGS: LCTAB, no crackles/rhonchi CV: RRR ABDOMEN: Soft, nontender in all quadrants EXTREMITY: Normal ROM SKIN: No rash or erythema NEURO: Mental status? Awake, alert, and oriented to self, year, month, location, and situation.? Following simple axial and appendicular commands.? Has appropriate fund of knowledge, comprehension, and insight.? Able to recall and understands pertinent aspects of medical history and current treatment status.? ? Language? Speech is fluent without word-finding difficulties.? Intact naming, expression, office manager receptionist, and repetition.? ? Cranial nerves? 2,3,4,6: PERRL, EOMI with no nystagmus. 5: Intact sensation to light touch, symmetric? 7: Smile symmetrical, no facial droop.? 8: Hearing grossly intact.? 9,10: Normal palate movement.? 11: Normal strength in trapezius bilaterally 12: Tongue protrudes midline.? ? Motor examination? Normal bulk & tone. Strength as follows (R/L): Delts (5/5), Biceps (5/5), Triceps (5/5), Wrist ext (5/5), hip flexors (5/5), plantarflexors (5/5), dorsiflexors (5/5). ? Sensation? Light Touch: Grossly intact and equal in upper and lower extremities bilaterally? Romberg: Negative.? Distal joint position sense intact ? Coordination? Mixgcn-xh-dyey-finger movements intact without dysmetria or past-pointing.? Rapid fingertaps: preserved amplitude without decriment.? No tremor, myoclonus or truncal ataxia.? ? Gait/stance? Able to ambulate but has mildly unstable gait PSYCH: Normal mood and affect Course Vital Signs: Vital signs: Vital Signs Temperature 98.1 F 01/06/21 20:00 Pulse Rate 72 01/06/21 20:00 Respiratory Rate 16 01/06/21 20:00 Blood Pressure 110/72 01/06/21 20:00 Pulse Oximetry 93 01/06/21 20:00 MDM - General Adult MDM Narrative: Medical decision making narrative: 60F with a history of CAD, hypertension, diabetes presented to the emergency room with 2 episodes of lightheadedness and gait instability. On exam, patient has mild gait instability upon walking. Otherwise neuro exam intact. Troponin is noted to be 12, unclear baseline. Patient was followed by Dr. Ng. Pending delta troponin. Initial EKG is nonischemic. CT brain as well as CTA head and neck did not show any signs of acute bleed or vascular diseases. Patient received IVF, Tylenol, magnesium in the emergency room. Given mild symptomatic improvement as well as cardiac history, decision was made to admit patient for MRI and serial troponin. Dispostion: Admission Lab Data: Labs: Lab Results 01/06/21 01/06/21 01/06/21 Range/Units 14:40 14:40 14:40 WBC 9.9 (4.0-10.0) 10^3/ uL RBC 4.63 (4.1-5.3) 10^6/u L Hgb 13.0 (11.5-15.3) g/dL Hct 40.4 (37.0-47.0) % MCV 87.3 (81-99) fl MCH 28.1 (28.0-34.0) pg MCHC 32.2 (30.0-36.0) g/dL RDW 14.6 (12.1-15.1) % Plt Count 317 (130-400) 10^3/c mm MPV 11.3 H (7.4-10.4) fL Neut % (Auto) 60.4 % Lymph % (Auto) 30.9 % Walsh % (Auto) 6.8 % Eos % (Auto) 1.1 % Baso % (Auto) 0.7 % Neut # (Auto) 5.97 (1.8-7.7) 10^3/u L Lymph # (Auto) 3.1 (0.8-4.8) 10^3/u L Walsh # (Auto) 0.7 (0.2-0.9) 10^3/u L Eos # (Auto) 0.1 (0.0-0.8) 10^3/u L Baso # (Auto) 0.1 (0.0-0.1) 10^3/u L Nucleated RBC % (a uto) 0 % Nucleated RBCs # 0.0 /100WBC Sodium 140 (136-145) mmol/L Potassium 2.6 L* (3.5-5.1) mmol/L Chloride 94 L (98-107) mmol/L Carbon Dioxide 31 H (22-29) mmol/L Anion Gap 17.6 (5-19) BUN 12 (8-23) mg/dL Creatinine 0.7 (0.5-0.9) mg/dL GFR Calculation 85.1 L (90-130) mL/min Glucose 122 H (65-115) mg/dL Calculated Osmolal ity 291 (285-295) mOsm/k g Calcium 9.9 (8.5-10.5) mg/dL Troponin T Baselin e 12 H (0-10) ng/L NT-Pro-B Natriuret Pep 96 (0-125) pg/mL Imaging Data^: Other Imaging: Radiologist's impression: [address] [id number] Scan ReportSigned Patient: Danae Blas #: [id number]: 9Acct#:[id number]/Sex: 60 / FADM Date: 01/06/21Loc: ERRoom/Bed:Attending Dr: Ordering Provider/Ordering MD: Gael Victor MD Date of Service: 01/06/21 Procedure(s): CT angio headneck* [id number] Accession Number(s): [id number] Report Number: [id number] PROCEDURE INFORMATION: Exam: CT Angiography Head With Contrast, Arteriography Exam date and time: 01/06/2021 2:11 PM Age: 60 years old Clinical indication: Syncope and collapse; Additional info: Evaluate for vessel diseases TECHNIQUE: Imaging protocol: Computed tomography angiography of the head with contrast. Exam focused on the arteries. 3D rendering (Not supervised by radiologist): MIP and/or 3D reconstructed images were created by the technologist. Radiation optimization: All CT scans at this facility use at least one of these dose optimization techniques: automated exposure control; mA and/or kV adjustment per patient size (includes targeted exams where dose is matched to clinical indication); or iterative reconstruction. Contrast material: OMNI 350; Contrast volume: 95 ml; Contrast route: INTRAVENOUS (IV); COMPARISON: CT head wo con* [id number] 01/06/2021 3:41 PM RADIATION DOSE METRICS: Total DLP (mGy-cm): 2070.1 FINDINGS: ANTERIOR CIRCULATION: Right internal carotid artery: Unremarkable. Intracranial segment is patent with no significant stenosis. No aneurysm. Right middle cerebral artery: Unremarkable. No occlusion or significant stenosis. No aneurysm. Right anterior cerebral artery: Unremarkable. No occlusion or significant stenosis. No aneurysm. Left internal carotid artery: Unremarkable. Intracranial segment is patent with no significant stenosis. No aneurysm. Left middle cerebral artery: Unremarkable. No occlusion or significant stenosis. No aneurysm. Left anterior cerebral artery: Unremarkable. No occlusion or significant stenosis. No aneurysm. POSTERIOR CIRCULATION: Right vertebral artery: Unremarkable. No occlusion or significant stenosis. No aneurysm. Left vertebral artery: Unremarkable. No occlusion or significant stenosis. No aneurysm. Basilar artery: Unremarkable. No occlusion or significant stenosis. No aneurysm. Right posterior cerebral artery: Unremarkable. No occlusion or significant stenosis. No aneurysm. Left posterior cerebral artery: Unremarkable. No occlusion or significant stenosis. No aneurysm. Brain: No definite mass, mass effect, or midline shift. Cerebral ventricles: No ventriculomegaly. Bones/joints: Unremarkable. No acute fracture. Soft tissues: Unremarkable. IMPRESSION: No large vessel stenosis or occlusion. PROCEDURE INFORMATION: Exam: CT Angiography Neck With Contrast Exam date and time: 01/06/2021 2:11 PM Age: 60 years old Clinical indication: Syncope and collapse; Additional info: Evaluate for vessel diseases TECHNIQUE: Imaging protocol: Computed tomography angiography of the neck with contrast. 3D rendering (Not supervised by radiologist): MIP and/or 3D reconstructed images were created by the technologist. Radiation optimization: All CT scans at this facility use at least one of these dose optimization techniques: automated exposure control; mA and/or kV adjustment per patient size (includes targeted exams where dose is matched to clinical indication); or iterative reconstruction. Contrast material: OMNI 350; Contrast volume: 95 ml; Contrast route: INTRAVENOUS (IV); COMPARISON: CT head wo con* [id number] 01/06/2021 3:41 PM RADIATION DOSE METRICS: Total DLP (mGy-cm): 2070.1 FINDINGS: Right common carotid artery: Atherosclerotic calcification and mild narrowing of the carotid bulb less than 50%. No dissection or occlusion. Right internal carotid artery: Mild narrowing of the proximal internal carotid artery less than 50% narrowing by NASCET criteria. No dissection or occlusion. Right external carotid artery: No occlusion or stenosis of the origin. Left common carotid artery: Atherosclerotic calcification and mild narrowing at the carotid bulb less than 50%. No dissection or occlusion. Left internal carotid artery: Mild narrowing at the proximal internal carotid artery less than 50% narrowing by NASCET criteria. No dissection or occlusion. Left external carotid artery: No occlusion or stenosis of the origin. Right vertebral artery: No stenosis. No dissection or occlusion. Left vertebral artery: No stenosis. No dissection or occlusion. Lymph nodes: Numerous calcified mediastinal lymph nodes are noted suggestive of prior granulomatous disease. Soft tissues: Normal. No significant soft tissue swelling. Bones/joints: No acute fracture. Lungs: Calcified granulomas noted in the right upper lobe. CT/CT angio headneck* [id number] IMPRESSION: Mild stenosis at the common carotid bulbs and proximal internal carotid arteries. No significant stenosis or occlusion. REFERENCES: NASCET CRITERIA. The degree of internal carotid artery stenosis is based on NASCET criteria. Normal is no stenosis. Mild is less than 50% stenosis. Moderate is 50-69% stenosis. Severe is 70% to 99% stenosis. Total occlusion is no detectable patent lumen. Radiation Dose CTDIVOL = (mGy): DLP = 2070.~2070.1 (mGy-cm) Dictated By:Dequan Ferrer DOSigned By:Dequan Ferrer DOSigned Date/Time:01/06/211608DD/ 08 [facility] [place], [place] [address]JB Scan ReportSigned Patient: Danae Blast #: [id number]: 1960cct#:[id number]/Sex: 60 / FADM Date: 01/06/21Loc: ERRoom/Bed:Attending Dr: Ordering Provider/Ordering MD: Gael Victor MD Date of Service: 01/06/21 Procedure(s): CT head wo con* [id number] Accession Number(s): [id number] Report Number: [id number] PROCEDURE INFORMATION: Exam: CT Head Without Contrast Exam date and time: 01/06/2021 2:11 PM Age: 60 years old Clinical indication: Syncope and collapse TECHNIQUE: Imaging protocol: Computed tomography of the head without contrast. Radiation optimization: All CT scans at this facility use at least one of these dose optimization techniques: automated exposure control; mA and/or kV adjustment per patient size (includes targeted exams where dose is matched to clinical indication); or iterative reconstruction. COMPARISON: MRI Head w/wo* [id number] 01/04/2015 10:52 AM RADIATION DOSE METRICS: Total DLP (mGy-cm): 620.76 FINDINGS: Brain: Normal. No hemorrhage. Mild low attenuation signal within the deep white matter tracts suggestive of chronic small vessel ischemic disease. No mass effect. Cerebral ventricles: No ventriculomegaly. Paranasal sinuses: Visualized sinuses are unremarkable. No fluid levels. Mastoid air cells: Right mastoid effusion without corresponding erosive changes. Orbital cavity: Post cataract surgical changes of the left globe. Bones/joints: Unremarkable. No acute fracture. Soft tissues: Unremarkable. CT/CT head wo con* [id number] IMPRESSION: 1. No acute intracranial abnormality. 2. Right mastoid effusion. Radiation Dose CTDIVOL = (mGy): DLP = 620.76 (mGy-cm) Dictated By:Dequan Ferrer DOSigned By:Dequan Ferrer DOSigned Date/Time:01/06/21 1559DD/ 58 Discharge Plan Discharge Patient Disposition: Admitted As Inpatient Admit Provider: Jean Marie Dwyer Clinical Impression: Near syncope, Headache, Gait instability, Hypokalemia Condition: Stable Coding Level of Care Code ED Software Packaging Engineer for Alcides Treviño
[2021-01-06 14:55] LABS: Basophils # 0.1 10^3/uL (0.0-0.1); Basophils % 0.7 %; Eosinophils # 0.1 10^3/uL (0.0-0.8); Eosinophils % 1.1 %; Hematocrit 40.4 % (37.0-47.0); Lymphocytes # 3.1 10^3/uL (0.8-4.8); Lymphocytes % 30.9 %; Mean Corpuscular HGB Conc 32.2 g/dL (30.0-36.0); Mean Corpuscular Hemoglobin 28.1 pg (28.0-34.0); Mean Corpuscular Volume 87.3 fl (81-99); Mean Platelet Volume 11.3 fL (7.4-10.4); Monocytes # 0.7 10^3/uL (0.2-0.9); Monocytes % 6.8 %; Neutrophils # 5.97 10^3/uL (1.8-7.7); Neutrophils % 60.4 %; Nucleated Red Blood Cells % 0 %; Platelet Count 317 10^3/cmm (130-400); Red Blood Count 4.63 10^6/uL (4.1-5.3); Red Cell Distribution Width 14.6 % (12.1-15.1); White Blood Count 9.9 10^3/uL (4.0-10.0)
[2021-01-06 15:12] LABS: Troponin(5th) Baseline 12 ng/L (0-10)
[2021-01-06 15:23] LABS: Anion Gap 17.6 (5-19); Blood Urea Nitrogen 12 mg/dL (8-23); Calcium 9.9 mg/dL (8.5-10.5); Carbon Dioxide 31 mmol/L (22-29); Chloride 94 mmol/L (98-107); Glomerular Filtration Rate 85.1 mL/min (90-130); Glucose 122 mg/dL (65-115); NT Pro B Type Natriuretic Pept 96 pg/mL (0-125); Osmolality Calculated 291 mOsm/kg (285-295); Sodium 140 mmol/L (136-145)
[2021-01-06 15:28] LABS: Potassium 2.6 mmol/L (3.5-5.1)
[2021-01-06] MEDS: iohexol 350 mg/mL 100 mL Btl IV (15:50)
--- NOTE | 2021-01-06 16:11 | ECG_ITS ---
[facility] Test Date: 2021-01-06 Pat Name: Danae lBas Department: Room: 277 Gender: Female Type Rolling Machine Operator: : 1960 Requested By: Gael Victor Order Number: [id number] Rebel MD: Lea Anderson M.D. Measurements Intervals [place] Rate: 71 P: 30 [place]: 184 QRS: -48 QRSD: 110 T: 11 QT: 421 QTc: 458 Interpretive Statements SINUS RHYTHM LEFT AXIS DEVIATION [QRS AXIS < -30] INCOMPLETE RIGHT BUNDLE BRANCH BLOCK [90+ ms QRS DURATION, TERMINAL R IN V1/V2, 40+ ms S IN I/aVL/V4/V5/V6] Compared to ECG 01/06/2021 14:57:42 Myocardial infarct finding no longer present Electronically Signed On 01-07-2021 13:21:11 CDT by Lea Anderson M.D. [id number]
[2021-01-06] MEDS: potassium chloride ER 20 mEq Tablet 40 MEQ PO (16:17)
[2021-01-06] MEDS: potassium chloride premix 100 ML 50 MEQ IV (16:21)
--- NOTE | 2021-01-06 16:58 | PC.PHAR ---
pt states she is still taking home medications but [facility] pharmacy has not filled several since 2019. notes made on individual medications including, Isosorbide Isanti, Losartan, Metformin, and Verapamil
[2021-01-06 17:31] LABS: Troponin 5 2HR 11.23 ng/L (0-10)
[2021-01-06 17:45] LABS: Troponin 5 2HR Delta -0.77 ABS# (0-10)
--- NOTE | 2021-01-06 17:59 | P.HP_ITS ---
Providers/Chief Complaint Admitting Physician: Jean Marie Dwyer Primary Care Provider: Reny Celis MD Chief Complaint: ONGOING HEADACHE History of Present Illness 60-year-old female with a past medical history significant for COVID-19 E April 2020, pulmonary sarcoidosis with hypertension, nonobstructive coronary artery disease, hypertension, dyslipidemia, diabetes mellitus, peripheral neuropathy, chronic migraines, chronic diastolic heart failure who presented to the hospital with presyncope. This was associated with acute on chronic migraine which has been ongoing for the past 2 weeks. Patient stated she has not had a migraine for over 10 years. noted fall in october. right sided, at times with blurry vision. no unilateral weakness. NO fever, chills, nausea or vomiting. Laboratory workup on arrival showed a WBC of 9.9, hemoglobin of 13.0, hematocrit of 40.4 and platelet count of 317. Sodium 140, potassium 2.6, chloride 94, bicarb 31, BUN 12 and creatinine of 0.7. Troponin T base of 12 with a repeat after 120 minutes of 11.23. ProBNP of 96. Imaging studies included a head CT without contrast which right mastoid effusion without any additional intracranial abnormality. CTA of head and neck showed mild stenosis a cup in carotid bulbs and proximal internal carotid arteries without any evidence of stenosis or occlusion. In Emergency room patient was given magnesium 2 g IV x1, potassium 40 mEq p.o. x1 with an additional 40 mEq IV , 500 cc bolus of NS, Benadryl 50 mg IV x1 and 500 mg oral of acetaminophen. Echocardiogram on 09/2019 1-Normal left ventricular cavity size. Normal left ventricular systolic function. Left ventricular ejection fraction is estimated at 65 %. No regional wall motion abnormalities. Grade I/IV diastolic dysfunction (abnormal relaxation filling pattern), normal to mildly elevated filling pressures. 2-Thickened mitral valve. No mitral valve stenosis. Moderate mitral annular calcification. No mitral valve regurgitation. 3-No significant valve abnormalities. 4-There is no pericardial effusion. 5-Pulmonary artery systolic pressure is within normal limits. 6-No significant change since the prior echocardiogram study of 01/15/2018. Review of Systems General: Reports: 10 or more systems reviewed and unremarkable except in HPI and below Medications/Allergies Home Medications Medication Instructions Recorded Confirmed Last Taken Type amlodipine 5 mg tablet 5 mg PO DAILY 09/20/19 01/06/21 01/05/21 History ascorbic acid (vitamin C) 1,000 mg 1,000 mg PO DAILY tab 09/20/19 01/06/21 01/06/21 History tablet clopidogrel 75 mg tablet 75 mg PO DAILY 09/20/19 01/06/21 01/06/21 History metformin 1,000 mg tablet 1,000 mg PO BID 09/20/19 01/06/21 01/06/21 History omega-3 fatty acids 1,000 mg 1,000 mg PO DAILY 09/20/19 01/06/21 01/06/21 History capsule pantoprazole 40 mg tablet,delayed 40 mg PO DAILY 09/20/19 01/06/21 01/06/21 History release valsartan 320 1 tab PO DAILY 09/20/19 01/06/21 01/06/21 History mg-hydrochlorothiazide 25 mg tablet gabapentin 100 mg capsule 200 mg PO BEDTIME cap 10/27/19 01/06/21 01/05/21 History zinc 50 mg tablet 50 mg PO DAILY 10/27/19 01/06/21 01/06/21 History cholecalciferol (vitamin D3) 25 25 mcg PO DAILY 07/13/20 01/06/21 01/06/21 History mcg (1,000 unit) capsule isosorbide mononitrate 30 mg 30 mg PO BID #180 tab 07/13/20 01/06/21 01/06/21 Rx tablet,extended release 24 hr losartan 50 mg tablet 50 mg PO DAILY #90 tab 07/13/20 01/06/21 01/06/21 Rx melatonin 5 mg capsule 5 mg PO BEDTIME cap 07/13/20 01/06/21 01/05/21 History nitroglycerin 0.4 mg sublingual 0.4 mg SUBLINGUAL Q5M PRN #25 tab 07/13/20 01/06/21 Unknown Rx tablet potassium chloride 10 mEq 10 meq PO EVERY OTHER DAY tab 07/13/20 01/06/21 01/05/21 History tablet,extended release albuterol sulfate 90 mcg/actuation 2 puff INHALATION Q6H PRN 08/22/20 01/06/21 09/20/20 05:00 History aerosol inhaler furosemide 20 mg tablet 40 mg PO DAILY tab 10/18/20 01/06/21 01/06/21 History mecobalamin (vitamin B12) 1,000 1,000 mcg PO DAILY 12/14/20 01/06/21 01/06/21 History mcg chewable tablet verapamil 40 mg tablet 40 mg PO BID tab 12/14/20 01/06/21 01/06/21 History Allergies Allergy/AdvReac Type Severity Reaction Status Date / Time Sulfa (Sulfonamide Allergy Unknown break out Verified 01/06/21 13:25 Antibiotics) and has trouble breathing PFSH Acute PFSH: Medical History ASHD (arteriosclerotic heart disease) Chronic migraine Diabetes mellitus Diastolic heart failure History of [place] (myocardial infarction) HTN (hypertension) Sarcoidosis Shortness of breath Surgical History History of elbow surgery History of heart artery stent S/P carpal tunnel release S/P hysterectomy Family History Mother Cancer Father Cancer CAD (coronary artery disease) Family/Other Cancer Sister CAD (coronary artery disease) Grandfather CAD (coronary artery disease) Family/Other CAD (coronary artery disease) Social History Smoking and tobacco status: never smoked Second hand smoke exposure: Yes Alcohol intake: current Alcohol intake frequency: holidays/special occasions only Alcohol type: wine Lives independently: Yes Household members: none Marital status: / Current occupational status: disabled Pets and animals: Yes Pets & animals: dog(s) History of recent travel: No Current gender identity: Female Vitals/I&O/Wt Last Vital Signs Temp 97.9 F 01/06/21 13:21 Pulse 70 01/06/21 17:48 Resp 18 01/06/21 17:48 BP 146/71 01/06/21 17:48 Pulse Ox 96 01/06/21 17:48 Weight last 48 hrs Weight 84.822 kg Physical Exam Narrative: EXAM NARRATIVE: Constitutional: Awake, alert, oriented x 3 HEENT: Grossly unremarkable Neck: Supple grossly, not fully cooperative as she tenses up when you touch her Respiratory: Clear to auscultation bilaterally Cardiovascular: Regular rhythm, no murmurs or rubs Abdomen: Soft, nondistended, positive bowel sounds Extremities: No pitting edema, no cyanosis, mild clubbing Neuro: Moves all extremities Data : 01/06/21 14:40 01/06/21 14:40 A&P Assessment and plan (1) Near syncope: ECHO ordered Fall precautions CT head / CTA negative May consider event monitor at d/c monitor on tele Possibly related to migraine Outpatient neurology consult Status: Acute (2) Hypokalemia: Replaced in ER Recheck in am Status: Acute (3) Pulmonary sarcoidosis: Stable on RA Status: Acute (4) HTN (hypertension): Verify home meds Patient has multiple anti hypertensive Pharmacy stated they have not been filled since last year Unclear compliance. Status: Acute Qualifiers: Hypertension type: essential hypertension Qualified Code(s): I10 - Essential (primary) hypertension (5) Diastolic heart failure: Status: Acute Attestations Medical Necessity Statement*: Anticipate > 2 midnight stay in hospital for eval and tx. Time Spent in Patient Care: Greater than 35 minutes (>than 50% of time spent in counselling and/or direct pt care on unit) . Coding Level of Care Code Acute Endoscopy Specialty Technician for Alcides Ryand Diagnoses Near syncope R55 Hypokalemia E87.6 Pulmonary sarcoidosis D86.0 HTN (hypertension) I10 Hypertension type: essential hypertension Diastolic heart failure I50.30
[2021-01-06] MEDS: enoxaparin 40 mg/0.4 mL Syringe SUBCUT (18:34)
[2021-01-06] MEDS: acetaminophen 325 mg Tablet 650 MG PO (20:24)
[2021-01-06] MEDS: ALPRAZolam 0.5 mg Tablet 0.25 MG PO (23:03)
[2021-01-07] VITALS (7 sets, daily range): BP systolic 104–153; BP diastolic 68–85; PULSE 58–82; RESP 16–18; TEMP 36.6–37.1; O2SAT 95–97
[2021-01-07] MEDS: acetaminophen 325 mg Tablet 650 MG PO (05:51)
[2021-01-07 06:59] LABS: Glucose Point of Care 134 mg/dL (70-110)
[2021-01-07 07:27] LABS: Basophils # 0.1 10^3/uL (0.0-0.1); Basophils % 0.7 %; Eosinophils # 0.2 10^3/uL (0.0-0.8); Eosinophils % 3.3 %; Hematocrit 36.6 % (37.0-47.0); Hemoglobin 11.4 g/dL (11.5-15.3); Lymphocytes # 2.6 10^3/uL (0.8-4.8); Lymphocytes % 38.7 %; Mean Corpuscular HGB Conc 31.1 g/dL (30.0-36.0); Mean Corpuscular Hemoglobin 27.7 pg (28.0-34.0); Mean Corpuscular Volume 89.1 fl (81-99); Mean Platelet Volume 11.1 fL (7.4-10.4); Monocytes # 0.6 10^3/uL (0.2-0.9); Monocytes % 8.5 %; Neutrophils # 3.26 10^3/uL (1.8-7.7); Neutrophils % 48.7 %; Nucleated Red Blood Cells % 0 %; Platelet Count 252 10^3/cmm (130-400); Red Blood Count 4.11 10^6/uL (4.1-5.3); Red Cell Distribution Width 14.6 % (12.1-15.1); White Blood Count 6.7 10^3/uL (4.0-10.0)
[2021-01-07 07:52] LABS: Procalcitonin 0.04 ng/mL (0-0.5); Thyroid Stimulating Hormone 1.34 uIU/mL (0.27-4.20)
[2021-01-07 08:06] LABS: Alanine Aminotransferase 11 U/L (0-33); Albumin Level 3.9 g/dL (3.5-5.2); Alkaline Phosphatase 59 IU/L (35-105); Aspartate Amino Transferase 12 U/L (0-32); Blood Urea Nitrogen 12 mg/dL (8-23); Calcium 9.3 mg/dL (8.5-10.5); Carbon Dioxide 31 mmol/L (22-29); Chloride 98 mmol/L (98-107); Creatinine Clr Calc Pharmacy 99.4641; Globulin 2.3 g/dL (1.3-4.6); Glomerular Filtration Rate 101.6 mL/min (90-130); Glucose 126 mg/dL (65-115); Magnesium 1.6 mg/dL (1.7-2.3); Osmolality Calculated 291 mOsm/kg (285-295); Sodium 140 mmol/L (136-145); Total Bilirubin 0.4 mg/dL (0.15-1.2); Total Protein 6.2 g/dL (6.6-8.7)
[2021-01-07 08:07] LABS: Anion Gap 14.1 (5-19); Potassium 3.1 mmol/L (3.5-5.1)
--- NOTE | 2021-01-07 09:47 | PC.CHAP ---
Pastoral Care Encounter/Spiritual Assessment Type of Contact [] Declined manager internet visit [] Patient/Family/Request visit [] Outpatient visit [] Follow-up visit [] Physician referral [] Code/Alert [x] Routine visit [] Staff referral [] Actively dying [] Patient sleeping [] Family support [] [] Out of room [] Palliative care [] [x] Receiving care in room [] Pre-surgical visit [] Trauma [] Long length of stay [] ICU visit [] Other: Relational/Emotional Strength [] Patient feels connected with others/family/visitors/staff [] Distress [] Loneliness/isolation [] Abandonment Spirituality of Patient [] Person of Janeth [] Attends [facility] of their Janeth [] Believes in Prayer [] Reads Bible or Pentecostalism materials [] There are Spiritual issues to be addressed Turn Laster Interventions [] Prayer [] Active listening [] Non-anxious presence [] Spiritual/emotional support [] Crisis/trauma care [] Spiritual counseling [] Bereavement support [] Provided bereavement packet [] Provided Bible/devotional materials [] Provided toy/stuffed animal, coloring book to patient or family member [] Provided Communion [] Anointing/[place] [] Salvation [] Completed spiritual assessment [] Other: Impact on Illness or Injury [] Angry [] Fearful [] Anxious [] Often cries [] Exhaustion [] Unable to work [] Unable to attend alevism [] Unable to walk/stand [] Unable to read [] Unable to drive [] Unable to eat/drink [] Unable to sleep [] Unable to be with family [] Patient intubated [] Other: Summary Time spent with patient
[2021-01-07 11:01] LABS: Glucose Point of Care 211 mg/dL (70-110)
[2021-01-07 12:15] LABS: Chol HDL Ratio 3.59 mg/dL (0.0-4.40); Cholesterol 183 mg/dL (0-200); HDL Cholesterol 51 mg/dL (60-100); LDL Cholesterol Calculated 99 mg/dL (50-129); Triglycerides 164 mg/dL (0-150); VLDL Cholestrol Calculation 33 mg/dL (0-30)
[2021-01-07 12:22] LABS: Estmated Average Glucose 157; Hemoglobin A1C 7.1 % (4.0-6.0)
[2021-01-07] MEDS: pantoprazole DR 40 mg Tablet PO (12:26)
[2021-01-07] MEDS: clopidogrel 75 mg Tablet PO (12:26)
[2021-01-07] MEDS: potassium chloride ER 10 mEq Tablet PO (12:26)
--- NOTE | 2021-01-07 12:35 | PM.DCS ---
Discharge Providers Date of Admission: 01/06/21 16:27 Date of Discharge: January 07, 2021 Attending Provider at Admission: Jean Marie Dwyer Attending Provider at Discharge: Sharath Johansen MD Primary Care Provider: Reny Celis MD Diagnoses at Discharge Discharge Diagnosis (1) Near syncope: Status: Acute (2) Hypokalemia: Status: Acute (3) Pulmonary sarcoidosis: Status: Acute (4) HTN (hypertension): Status: Acute Qualifiers: Hypertension type: essential hypertension Qualified Code(s): I10 - Essential (primary) hypertension (5) Diastolic heart failure: Status: Acute Reason for Visit Reason for Visit: ONGOING HEADACHE Hospital Course Hospital Course 60-year-old female with a past medical history significant for COVID-19 E April 2020, pulmonary sarcoidosis with hypertension, nonobstructive coronary artery disease, hypertension, dyslipidemia, diabetes mellitus, peripheral neuropathy, chronic migraines, chronic diastolic heart failure who presented to the hospital with presyncope. This was associated with acute on chronic migraine which has been ongoing for the past 2 weeks. Patient stated she has not had a migraine for over 10 years. noted fall in october. right sided, at times with blurry vision. no unilateral weakness. NO fever, chills, nausea or vomiting. Laboratory workup on arrival showed a WBC of 9.9, hemoglobin of 13.0, hematocrit of 40.4 and platelet count of 317. Sodium 140, potassium 2.6, chloride 94, bicarb 31, BUN 12 and creatinine of 0.7. Troponin T base of 12 with a repeat after 120 minutes of 11.23. ProBNP of 96. Imaging studies included a head CT without contrast which right mastoid effusion without any additional intracranial abnormality. CTA of head and neck showed mild stenosis a cup in carotid bulbs and proximal internal carotid arteries without any evidence of stenosis or occlusion. In Emergency room patient was given magnesium 2 g IV x1, potassium 40 mEq p.o. x1 with an additional 40 mEq IV , 500 cc bolus of NS, Benadryl 50 mg IV x1 and 500 mg oral of acetaminophen. Echocardiogram on 09/2019 1- Normal left ventricular cavity size. Normal left ventricular systolic function. Left ventricular ejection fraction is estimated at 65 %. No regional wall motion abnormalities. Grade I/IV diastolic dysfunction (abnormal relaxation filling pattern), normal to mildly elevated filling pressures. 2- Thickened mitral valve. No mitral valve stenosis. Moderate mitral annular calcification. No mitral valve regurgitation. 3- No significant valve abnormalities. 4- There is no pericardial effusion. 5- Pulmonary artery systolic pressure is within normal limits. 6- No significant change since the prior echocardiogram study of 01/15/2018. Patient was admitted to the hospital for further management of headache, near syncope. CT head images were done and resulted as below. Patient was found to be on multiple antihypertensives with her episode of near syncope all the antihypertensives were withheld and her blood pressure remained stable off medications. Orthostatic was checked. Patient hospital stay was unremarkable. She is been discharged in hemodynamically stable condition with advised to hold off on antihypertensives for now. She is advised to check her blood pressure twice a day and maintain a blood pressure diary and follow-up with her primary care provider in next 2 weeks for further adjustment of antihypertensives. She is advised to take amlodipine as needed if her systolic blood pressures are more than 150 mmHg. She is advised to check her weight at home and if the weight is more than 5 pound increase in a week then her baseline to take a tablet of Lasix. She is to take her potassium supplementation daily for now. Physical Exam Narrative: EXAM NARRATIVE: Constitutional: Awake, alert, oriented x 3 HEENT: Grossly unremarkable Neck: Supple grossly, not fully cooperative as she tenses up when you touch her Respiratory: Clear to auscultation bilaterally Cardiovascular: Regular rhythm, no murmurs or rubs Abdomen: Soft, nondistended, positive bowel sounds Extremities: No pitting edema, no cyanosis, mild clubbing Neuro: Moves all extremities Discharge Data Data Completed and Pending: Completed Studies During Hospitalization Category Date Time Status CT angio headneck * [id number] Urge nt Cat Scan 01/06/21 14:[address] head wo con* [id number] Urgent Cat Scan 01/06/21 14:11 Completed Pending at discharge Category Date Time Status CDIFF [Clostridio ides Difficile PCR ] Routine Lab 01/07/21 09:46 Uncollected CV. echo complete * [id number] Routine Ultrasound 01/07/21 18:17 Taken Labs from last 24 hours 01/07/21 01/07/21 01/07/21 10:56 06:55 06:54 WBC RBC Hgb Hct MCV MCH MCHC RDW Plt Count MPV Neut % (Auto) Lymph % (Auto) [place] % (Auto) Eos % (Auto) Baso % (Auto) Neut # (Auto) Lymph # (Auto) [place] # (Auto) Eos # (Auto) Baso # (Auto) Nucleated RBC % (a uto) Nucleated RBCs # Sodium Potassium Chloride Carbon Dioxide Anion Gap BUN Creatinine GFR Calculation Glucose POC Glucose 211 H 134 H Estimat Average Gl ucose 157 Hemoglobin A1c 7.1 H Calculated Osmolal ity Calcium Magnesium Total Bilirubin AST ALT Alkaline Phosphata se Troponin T Baselin e Troponin T 120 Min [place] Troponin T NT-Pro-B Natriuret Pep Total Protein Albumin Globulin Triglycerides Cholesterol LDL Cholesterol, C alc Total VLDL Cholest pari HDL Cholesterol Cholesterol/HDL Ra gladis Procalcitonin TSH 01/07/21 01/07/21 01/07/21 06:54 06:54 06:54 WBC 6.7 RBC 4.11 Hgb 11.4 L Hct 36.6 L MCV 89.1 MCH 27.7 L MCHC 31.1 RDW 14.6 Plt Count 252 MPV 11.1 H Neut % (Auto) 48.7 Lymph % (Auto) 38.7 [place] % (Auto) 8.5 Eos % (Auto) 3.3 Baso % (Auto) 0.7 Neut # (Auto) 3.26 Lymph # (Auto) 2.6 [place] # (Auto) 0.6 Eos # (Auto) 0.2 Baso # (Auto) 0.1 Nucleated RBC % (a uto) 0 Nucleated RBCs # 0.0 Sodium 140 Potassium 3.1 L Chloride 98 Carbon Dioxide 31 H Anion Gap 14.1 BUN 12 Creatinine 0.6 GFR Calculation 101.6 Glucose 126 H POC Glucose Estimat Average Gl ucose Hemoglobin A1c Calculated Osmolal ity 291 Calcium 9.3 Magnesium 1.6 L Total Bilirubin 0.4 AST 12 ALT 11 Alkaline Phosphata se 59 Troponin T Baselin e Troponin T 120 Min [place] Troponin T NT-Pro-B Natriuret Pep Total Protein 6.2 L Albumin 3.9 Globulin 2.3 Triglycerides 164 H Cholesterol 183 LDL Cholesterol, C alc 99 Total VLDL Cholest pari 33 H HDL Cholesterol 51 L Cholesterol/HDL Ra gladis 3.59 Procalcitonin Cancelled 0.04 TSH 1.34 01/06/21 01/06/21 01/06/21 16:41 14:40 14:40 WBC RBC Hgb Hct MCV MCH MCHC RDW Plt Count MPV Neut % (Auto) Lymph % (Auto) [place] % (Auto) Eos % (Auto) Baso % (Auto) Neut # (Auto) Lymph # (Auto) [place] # (Auto) Eos # (Auto) Baso # (Auto) Nucleated RBC % (a uto) Nucleated RBCs # Sodium 140 Potassium 2.6 L* Chloride 94 L Carbon Dioxide 31 H Anion Gap 17.6 BUN 12 Creatinine 0.7 GFR Calculation 85.1 L Glucose 122 H POC Glucose Estimat Average Gl ucose Hemoglobin A1c Calculated Osmolal ity 291 Calcium 9.9 Magnesium Total Bilirubin AST ALT Alkaline Phosphata se Troponin T Baselin e 12 H Troponin T 120 Min [place] 11.23 H Delta Troponin T -0.77 L NT-Pro-B Natriuret Pep 96 Total Protein Albumin Globulin Triglycerides Cholesterol LDL Cholesterol, C alc Total VLDL Cholest pari HDL Cholesterol Cholesterol/HDL Ra gladis Procalcitonin TSH 01/06/21 14:40 WBC 9.9 RBC 4.63 Hgb 13.0 Hct 40.4 MCV 87.3 MCH 28.1 MCHC 32.2 RDW 14.6 Plt Count 317 MPV 11.3 H Neut % (Auto) 60.4 Lymph % (Auto) 30.9 [place] % (Auto) 6.8 Eos % (Auto) 1.1 Baso % (Auto) 0.7 Neut # (Auto) 5.97 Lymph # (Auto) 3.1 [place] # (Auto) 0.7 Eos # (Auto) 0.1 Baso # (Auto) 0.1 Nucleated RBC % (a uto) 0 Nucleated RBCs # 0.0 Sodium Potassium Chloride Carbon Dioxide Anion Gap BUN Creatinine GFR Calculation Glucose POC Glucose Estimat Average Gl ucose Hemoglobin A1c Calculated Osmolal ity Calcium Magnesium Total Bilirubin AST ALT Alkaline Phosphata se Troponin T Baselin e Troponin T 120 Min [place] Troponin T NT-Pro-B Natriuret Pep Total Protein Albumin Globulin Triglycerides Cholesterol LDL Cholesterol, C alc Total VLDL Cholest pari HDL Cholesterol Cholesterol/HDL Ra gladis Procalcitonin TSH Addt'l Data from Hospital Stay: Laboratory Results WBC 6.7 10^3/uL (4.0- 10.0) 01/07/21 06:54 RBC 4.11 10^6/uL (4.1 -5.3) 01/07/21 06:54 Hgb 11.4 g/dL (11.5-1 5.3) L 01/07/21 06:54 Hct 36.6 % (37.0-47.0 ) L 01/07/21 06:54 MCV 89.1 fl (81-99) 01/07/21 06:54 MCH 27.7 pg (28.0-34. 0) L 01/07/21 06:54 MCHC 31.1 g/dL (30.0-3 6.0) 01/07/21 06:54 RDW 14.6 % (12.1-15.1 ) 01/07/21 06:54 Plt Count 252 10^3/cmm (130 -400) 01/07/21 06:54 MPV 11.1 fL (7.4-10.4 ) H 01/07/21 06:54 Neut % (Auto) 48.7 % 01/07/21 06:54 Lymph % (Auto) 38.7 % 01/07/21 06:54 [place] % (Auto) 8.5 % 01/07/21 06:54 Eos % (Auto) 3.3 % 01/07/21 06:54 Baso % (Auto) 0.7 % 01/07/21 06:54 Neut # (Auto) 3.26 10^3/uL (1.8 -7.7) 01/07/21 06:54 Lymph # (Auto) 2.6 10^3/uL (0.8- 4.8) 01/07/21 06:54 [place] # (Auto) 0.6 10^3/uL (0.2- 0.9) 01/07/21 06:54 Eos # (Auto) 0.2 10^3/uL (0.0- 0.8) 01/07/21 06:54 Baso # (Auto) 0.1 10^3/uL (0.0- 0.1) 01/07/21 06:54 Nucleated RBC % (a uto) 0 % 01/07/21 06:54 Nucleated RBCs # 0.0 /100WBC 01/07/21 06:54 Sodium 140 mmol/L (136-1 45) 01/07/21 06:54 Potassium 3.1 mmol/L (3.5-5 .1) L 01/07/21 06:54 Chloride 98 mmol/L (98-107 ) 01/07/21 06:54 Carbon Dioxide 31 mmol/L (22-29) H 01/07/21 06:54 Anion Gap 14.1 (5-19) 01/07/21 06:54 BUN 12 mg/dL (8-23) 01/07/21 06:54 Creatinine 0.6 mg/dL (0.5-0. 9) 01/07/21 06:54 GFR Calculation 101.6 mL/min (90- 130) 01/07/21 06:54 Glucose 126 mg/dL (65-115 ) H 01/07/21 06:54 POC Glucose 211 mg/dL (70-110 ) H 01/07/21 10:56 Estimat Average Gl ucose 157 01/07/21 06:54 Hemoglobin A1c 7.1 % (4.0-6.0) H 01/07/21 06:54 Calculated Osmolal ity 291 mOsm/kg (285- 295) 01/07/21 06:54 Calcium 9.3 mg/dL (8.5-10 .5) 01/07/21 06:54 Magnesium 1.6 mg/dL (1.7-2. 3) L 01/07/21 06:54 Total Bilirubin 0.4 mg/dL (0.15-1 .2) 01/07/21 06:54 AST 12 U/L (0-32) 01/07/21 06:54 ALT 11 U/L (0-33) 01/07/21 06:54 Alkaline Phosphata se 59 IU/L (35-105) 01/07/21 06:54 Troponin T Baselin e 12 ng/L (0-10) H 01/06/21 14:40 Troponin T 120 Min [place] 11.23 ng/L (0-10) H 01/06/21 16:41 Delta Troponin T -0.77 ABS# (0-10) L 01/06/21 16:41 NT-Pro-B Natriuret Pep 96 pg/mL (0-125) 01/06/21 14:40 Total Protein 6.2 g/dL (6.6-8.7 ) L 01/07/21 06:54 Albumin 3.9 g/dL (3.5-5.2 ) 01/07/21 06:54 Globulin 2.3 g/dL (1.3-4.6 ) 01/07/21 06:54 Triglycerides 164 mg/dL (0-150) H 01/07/21 06:54 Cholesterol 183 mg/dL (0-200) 01/07/21 06:54 LDL Cholesterol, C alc 99 mg/dL (50-129) 01/07/21 06:54 Total VLDL Cholest pari 33 mg/dL (0-30) H 01/07/21 06:54 HDL Cholesterol 51 mg/dL (60-100) L 01/07/21 06:54 Cholesterol/HDL Ra gladis 3.59 mg/dL (0.0-4 .40) 01/07/21 06:54 Procalcitonin 0.04 ng/mL (0-0.5 ) 01/07/21 06:54 Procalcitonin Cancelled 01/07/21 06:54 TSH 1.34 uIU/mL (0.27 -4.20) 01/07/21 06:[address] 01/06/21 14:11 IMPRESSION: 1. No acute intracranial abnormality. 2. Right mastoid effusion. Radiation Dose CTDIVOL = (mGy): DLP = 620.76 (mGy-cm) Head/Neck CTA 01/06/21 14:11 IMPRESSION: Mild stenosis at the common carotid bulbs and proximal internal carotid arteries. No significant stenosis or occlusion. REFERENCES: NASCET CRITERIA. The degree of internal carotid artery stenosis is based on NASCET criteria. Normal is no stenosis. Mild is less than 50% stenosis. Moderate is 50-69% stenosis. Severe is 70% to 99% stenosis. Total occlusion is no detectable patent lumen. Radiation Dose CTDIVOL = (mGy): DLP = 2071.1~2071.1 (mGy-cm) Vitals: Last Vital Signs Temp 98.8 F 01/07/21 12:00 Pulse 68 01/07/21 12:00 Resp 18 01/07/21 12:00 BP 125/72 01/07/21 12:00 Pulse Ox 95 01/07/21 12:00 Discharge Plan Discharge Patient Disposition: Home Condition: Stable Prescriptions: Continued clopidogrel 75 mg tablet 75 mg PO DAILY RF: 0 pantoprazole 40 mg tablet,delayed release (DR/EC) 40 mg PO DAILY RF: 0 metformin 1,000 mg tablet 1,000 mg PO BID RF: 0 omega-3 fatty acids [Fish Oil Concentrate] 1,000 mg capsule 1,000 mg PO DAILY RF: 0 gabapentin 100 mg capsule 200 mg PO BEDTIME RF: 0 melatonin 5 mg capsule 5 mg PO BEDTIME RF: 0 potassium chloride 10 mEq tablet extended release 10 meq PO EVERY OTHER DAY RF: 0 albuterol sulfate [ProAir HFA] 90 mcg/actuation HFA aerosol inhaler 2 puff inhalation Q6H PRN (Reason: Shortness Of Breath) RF: 0 cholecalciferol (vitamin D3) 25 mcg (1,000 unit) capsule 25 mcg PO DAILY RF: 0 nitroglycerin [Nitrostat] 0.4 mg tablet, sublingual 0.4 mg sublingual Q5M PRN (Reason: chest pain) Qty: 25 RF: 3 mecobalamin (vitamin B12) 1,000 mcg tablet,chewable 1,000 mcg PO DAILY RF: 0 Discontinued valsartan-hydrochlorothiazide 320-25 mg tablet 1 tab PO DAILY RF: 0 amlodipine 5 mg tablet 5 mg PO DAILY RF: 0 ascorbic acid (vitamin C) 1,000 mg tablet 1,000 mg PO DAILY RF: 0 furosemide 20 mg tablet 40 mg PO DAILY RF: 0 verapamil 40 mg tablet 40 mg PO BID RF: 0 zinc 50 mg tablet 50 mg PO DAILY RF: 0 losartan 50 mg tablet 50 mg PO DAILY Qty: 90 RF: 3 isosorbide mononitrate 30 mg tablet extended release 24 hr 30 mg PO BID Qty: 180 RF: 3 Discharge Orders: Discharge Order (Routine); Ordered 01/07/21 Ordered By: Sharath Johansen Referrals: Reny Celis MD [Primary Care Provider] - 2 weeks Discharge Diet: Cardiac and Diabetic Discharge Activity: Resume usual activity Patient Instructions: Opioid Safety Activity Restrictions/Additional Instructions: Please follow-up with your primary care provider within next 2 weeks. Please check your blood pressure twice daily and maintain a blood pressure diary to follow-up with the primary care provider for further adjustment of antihypertensives. If your blood pressure is more than 150 systolic please take amlodipine already prescribed to you as needed. Please check your body weight at home and if your body weight is 5 pounds more than your baseline in a week you can take a tablet of lasix. Patient has poor patient wants to follow-up with a neurologist in [place]. Patient should get a referral from [place] with primary care provider. Discharge Attestations Time Spent in Discharge Care*: greater than 30 min Specific Discharge Activities: educating patient, educating and/or supporting family/caregiver, discussing with business case analyst/social workers/dc planners, documenting/other paperwork and evaluating patient/reviewing data Status at Discharge: Cognitive status at discharge: cognitively intact, Behavioral status at discharge: cooperative, Functional status at discharge: independent ambulation Overall status at discharge: patient is back to baseline Quality Metrics Clinical Quality Measures During this hospital stay, did patient experience: None Coding Level of Care Code Acute Chg FW DC note Diagnoses Near syncope R55 Hypokalemia E87.6 Pulmonary sarcoidosis D86.0 HTN (hypertension) I10 Hypertension type: essential hypertension Diastolic heart failure I50.30
--- NOTE | 2021-01-07 14:24 | PC.NURSE ---
Discharge Note Patient discharged to home via private vehicle accompanied by family member. Discharge instructions reviewed with patient and/or client relations representative. Mobile pharmacy medications and/or prescriptions provided. Belongings/home medications returned.
--- NOTE | 2021-01-07 18:17 | USCV_ITS ---
Danae Blas Age: 60 Gender: F : 1960 Exam Date: 01/07/2021 05:18 Ordering Phys: Jean Marie Dwyer MD Technologist: Sole Ross Exam Location: [facility] – [place], [place] Indication: SYNCOPE BP: 104 / 68 HR: 62 Rhythm: Sinus Technical Quality: Adequate MEASUREMENTS (Male / Female) Normal Values 2D ECHO LV Diastolic Diameter PLAX 5.2 cm 4.2 - 5.9 / 3.9 - 5.3 cm LV Systolic Diameter PLAX 3.4 cm LV Chamber Size 3.2 cm IVS Diastolic Thickness 1.0 cm 0.6 - 1.0 / 0.6 - 0.9 cm IVS Systolic Thickness 1.2 cm LVPW Diastolic Thickness 1.1 cm 0.6 - 1.0 / 0.6 - 0.9 cm LVPW Systolic Thickness 1.5 cm RV Chamber Size 3.5 cm LVOT Diameter 2.1 cm LV Ejection Fraction 2D Teich 63.8 % LV Ejection Fraction MOD 2C 78.9 % LV Ejection Fraction 2C AL 81.7 % LA Diameter 4.6 cm LA Width 3.1 cm LA Height 4.3 cm RA Width 3.9 cm RA Height 4.2 cm Aorta at Sinotubular Diameter 2.9 cm M-MODE LV Diastolic Diameter MM 5.9 cm 4.2 - 5.9 / 3.9 - 5.3 cm LV Systolic Diameter MM 2.9 cm LV Ejection Fraction MM Teich 81.5 % IVS Diastolic Thickness MM 1.0 cm 0.6 - 1.0 / 0.6 - 0.9 cm IVS Systolic Thickness MM 2.2 cm LVPW Diastolic Thickness MM 1.2 cm 0.6 - 1.0 / 0.6 - 0.9 cm LVPW Systolic Thickness MM 2.4 cm RV Diastolic Diameter MM 1.9 cm Aortic Annulus Diameter 3.2 cm LA Ao Ratio MM 1.7 MV E Point Septal Separation 0.7 cm DOPPLER AV Peak Velocity 129.0 cm/s LVOT Peak Velocity 101.0 cm/s AV Area Cont Eq vti 2.4 cm squared AV Area Cont Eq pk 2.7 cm squared MV Area PHT 2.4 cm squared Mitral E to A Ratio 1.0 MV E' Velocity 54.5 cm/s Mitral E to MV E' Ratio 14.7 Mitral E to LV E' Lateral Ratio 12.7 Mitral E to LV E' Septal Ratio 17.8 TR Peak Velocity 184.8 cm/s TR Peak Gradient 13.7 mmHg TR Mean Velocity 147.0 cm/s TR Mean Gradient 9.9 mmHg TR Velocity Time Integral 53.3 cm TV Peak E Velocity 48.0 cm/s Right Atrial Pressure 3.0 mmHg Pulmonary Artery Systolic Pressu 16.7 mmHg PV Peak Velocity 79.0 cm/s RV Acceleration Time 0.1 s RV Ejection Time 0.4 s RV AcT/ET 0.3 FINDINGS Left Ventricle Normal left ventricular size. LV systolic function is normal with EF of 55-60%.No regional wall motion abnormalities. Normal diastolic filling pattern. Right Ventricle The right ventricle is normal in size and function. Right Atrium The right atrium is normal in size. Left Atrium The left atrium is normal in size. Mitral Valve Structurally normal mitral valve without significant stenosis or prolapse. There is no mitral regurgitation. Aortic Valve Structurally normal aortic valve without significant sclerosis or stenosis. There is no aortic regurgitation. Tricuspid Valve Structurally normal tricuspid valve without significant stenosis or regurgitation. Inufficient TR jet to calculate RVSP Pulmonic Valve Structurally normal pulmonic valve without significant stenosis. There is no pulmonic regurgitation. Pericardium Normal pericardium without effusion. Aorta Normal ascending aorta dimension. CONCLUSIONS LV systolic function is normal with EF of 55-60% Diastolic function is normal No signficant valvular heart disease Compared to prior echocardiogram from 09/2019, no significant changes are noted Quang Pena MD (Electronically Signed) Final Date: 07 January 2021 17:57 S
--- NOTE | 2021-01-09 12:17 | PC.RESP ---
PULMONARY REHAB INFORMATION SENT TO PATIENT.
--- NOTE | 2021-01-10 15:24 | PC.SOCIAL ---
discharge follow up call made. patient has follow up appointment with Dr. Reny Celis. Continues to have headaches but blood pressure has been good.
== END 2021-01-07 14:26 | disposition home or self-care (01) ==
LOC: ER 14:54 → MEDSURG 18:37
PROVIDERS: Admitting Provider Hospitalist; Emergency Provider Emergency Medicine; PCP Internal Medicine; Visit Provider Student in an Organized Health Care Education/Training Program
DX: R55 Syncope and collapse (principal); E87.6 Hypokalemia; D86.0 Sarcoidosis of lung; I11.0 Hypertensive heart disease with heart failure; I50.30 Unspecified diastolic (congestive) heart failure; Z86.16 Personal history of COVID-19; I25.10 Atherosclerotic heart disease of native coronary artery without angina pectoris; I10 Essential (primary) hypertension; E78.5 Hyperlipidemia, unspecified; E11.42 Type 2 diabetes mellitus with diabetic polyneuropathy; I25.2 Old myocardial infarction
CPT/HCPCS: 36415; 36416; 70450; 70496; 70498; 80048; 80053; 80061; 82962; 83036; 83735; 83880; 84145; 84443; 84484; 85025; 93005; 93306; 96365; 96366; 96367; 96372; 96375; 97161; 99285; G0378; J1200; J1650; J3475; J3480; J7040; Q9967

== ENCOUNTER 2021-02-08 10:55 | Outpatient (CLI) | payer MEDICARE, SELFPAY ==
--- NOTE | 2021-02-08 10:55 | MR_ITS ---
WS: [id number] MRI BRAIN WITH AND WITHOUT CONTRAST HISTORY: HEADACHES, UNSPECIFIED COMPARISON: 03/14/2019 and 01/07/2020 TECHNIQUE: Multiplanar imaging performed through the brain with MultiHance 20 ml's IV. No acute infarcts are seen. Jim-white matter differentiation is well preserved. Very minimal chronic microvascular ischemic type changes in the white matter. No progression of disease since the prior s tudy. No susceptibility artifacts or prior lacunar infarcts. Ventricles and extra-axial spaces are normal. Clivus and pituitary gland are normal. Visualized posterior fossa and brainstem are also normal. Postcontrast images are negative for masses or vascular malformations. Small caliber RIGHT vertebral artery. Probably a normal variant. Dural venous sinuses are normal. Paranasal sinuses: Well aerated with no significant disease. Mastoid air cells: Large amount of effusion in the RIGHT mastoid air cells similar to prior studies. Calvarium and scalp: Normal. MR/MR head wo/w con [id number] IMPRESSION: 1. No acute infarct or enhancing mass. 2. Large RIGHT mastoid air cell effusion has been described in the past. 3. Minimal chronic microvascular ischemic disease.
[2021-02-08] MEDS: gadobenate dimeglumine 20 mL vial IV (11:32)
== END 2021-02-08 10:56 | disposition home or self-care (01) ==
LOC: RADWPI 10:58
PROVIDERS: PCP Internal Medicine; Visit Provider Internal Medicine
DX: R51.9 Headache, unspecified (principal); I67.82 Cerebral ischemia
CPT/HCPCS: 70553; A9577

== ENCOUNTER 2021-02-21 15:27 | Outpatient (CLI) | payer MEDICARE, SELFPAY ==
--- NOTE | 2021-02-21 15:33 | XR_ITS ---
WS: [id number] DEXA (DUAL ENERGY X-RAY ABSORPTIOMETRY) Bone mineral density was performed using a I Had [employer] machine. HISTORY: OSTEOPENIA WITH HIGH FRACTURE RISK COMPARISON: None available. Lumbar spine BMD (L1-L4): 1.139 g/cm2 T score: -0.3 Z score: 0.2 Total hip BMD: Left: 0.847 g/cm2. T score: -1.3 Z score: -0.8 Right: 0.880 g/cm2. T score: -1.0 Z score: -0.6 10 year probability of a major osteoporotic fracture is 13%. XR/XR DEXA axial skeleton* [id number] IMPRESSION: OSTEOPENIA based upon the WHO classification for females.
== END 2021-02-21 15:28 | disposition home or self-care (01) ==
PROVIDERS: PCP Internal Medicine; Visit Provider Internal Medicine
DX: M85.80 Other specified disorders of bone density and structure, unspecified site (principal)
CPT/HCPCS: 77080

== ENCOUNTER 2021-03-21 07:55 | Outpatient (CLI) | payer MEDICARE, SELFPAY ==
--- NOTE | 2021-03-21 08:21 | XR_ITS ---
WS: [id number] CERVICAL SPINE 3 VIEWS HISTORY: NECK AND BACK PAIN COMPARISON: None available. Less than 2 mm anterolisthesis of C4. Disc spaces and vertebral body heights are normal. Posterior sp inolaminar line is normal. Disc spaces and vertebral body heights are well-maintained. Soft tissues are normal. Lateral masses of C1 and C2 are aligned. Odontoid is intact. Extensive mediastinal and hilar calcifications are noted. XR/XR cervical spine 3V* [id number] IMPRESSION: 1. Normal cervical alignment. 2. No cervical fracture.
--- NOTE | 2021-03-21 08:21 | XR_ITS ---
WS: [id number] THORACIC SPINE TECHNIQUE: AP and lateral views are performed. HISTORY: NECK AND BACK PAIN COMPARISON: 06/09/2018 Very mild thoracic scoliosis. Posterior thoracic alignment is normal. Mild disc space narrowing and e ndplate osteophytosis throughout the thoracic spine. No fractures. Extensive calcified mediastinal and hilar lymph nodes. Lymph nodes also extend into the upper abdomen . XR/XR thoracic spine 3V* [id number] IMPRESSION: Mild thoracic scoliosis. Mild thoracic spondylosis. Extensive calcified mediastinal and hilar adenopathy. May be from prior granulo matous disease or sarcoidosis.
== END 2021-03-21 07:56 | disposition home or self-care (01) ==
PROVIDERS: PCP Internal Medicine; Visit Provider Internal Medicine
DX: M54.2 Cervicalgia (principal); M54.6 Pain in thoracic spine; M41.84 Other forms of scoliosis, thoracic region; M47.814 Spondylosis without myelopathy or radiculopathy, thoracic region
CPT/HCPCS: 72040; 72072

== ENCOUNTER 2021-04-09 08:19 | Outpatient (CLI) | payer MEDICARE, SELFPAY ==
--- NOTE | 2021-04-09 08:26 | MM_ITS ---
WS: [id number] BILATERAL DIGITAL SCREENING MAMMOGRAPHY WITH CAD CLINICAL INFORMATION: SCREENING HISTORY: Screening mammogram. No current complaints. COMPARISON: January 24, 2020 TECHNIQUE: Bilateral CC and MLO views. FINDINGS: Scattered fibroglandular densities bilaterally. Punctate and lucent centered calcifications. No suspi cious focal mass, asymmetry, calcifications, or architectural distortion. No evidence of malignancy. MM/[place] [id number] IMPRESSION: BI-RADS: 2-Benign FOLLOW UP: 1 Year Follow-up Recommend return to annual screening mammography.
== END 2021-04-09 08:20 | disposition home or self-care (01) ==
PROVIDERS: PCP Internal Medicine; Visit Provider Internal Medicine
DX: Z12.31 Encounter for screening mammogram for malignant neoplasm of breast (principal)
CPT/HCPCS: 77067

== ENCOUNTER 2021-05-24 13:29 | Outpatient (CLI) | payer MEDICARE, SELFPAY ==
--- NOTE | 2021-05-24 13:50 | XR_ITS ---
WS: [id number] Chest 2 views, 05/24/2021 Clinical Data: COUGH Comparison: PA and lateral chest, 11/29/2020. Findings: No nodules, masses or effusions are seen. The heart is normal. The pulmonary vascularity is not increased. No pneumonia or pneumothorax is seen. The bilateral perihilar calcified granulomas an d lower lobe granulomas remain the same. The aortic arch and descending thoracic aorta show calcifica tion and tortuosity. XR/XR chest 2V* [id number] Impression: 1. No change in old granulomatous disease. 2. Atherosclerosis.
== END 2021-05-24 13:30 | disposition home or self-care (01) ==
PROVIDERS: PCP Internal Medicine; Visit Provider Nurse Practitioner Family
DX: R05.9 Cough, unspecified (principal); I70.90 Unspecified atherosclerosis
CPT/HCPCS: 71046

== ENCOUNTER → 2021-08-07 13:31 | Outpatient (BNVA) | payer MEDICARE, SELFPAY | PROVIDERS: PCP Internal Medicine; Visit Provider Specialist | DX: S42.211A Unspecified displaced fracture of surgical neck of right humerus, initial encounter for closed fracture (principal); X58.XXXA Exposure to other specified factors, initial encounter | CPT/HCPCS: 73030; 73060 ==

== ENCOUNTER 2021-08-21 11:03 | Emergency (ER) | payer MEDICARE, SELFPAY ==
[2021-08-21 11:38] VITALS: BP 128/89; PULSE 83; RESP 15; TEMP 36.5; O2SAT 98; BMI 34.5
--- NOTE | 2021-08-21 11:46 | ED_ITS ---
HPI - Extremity Problem General: Chief complaint: Extremity Injury, Upper Stated complaint: right wrist injury/severe pain & numbness Time Seen by Provider: 08/21/21 11:45 History of Present Illness: Patient is a 61-year-old female comes to the ED with right arm pain. Patient says 2 weeks ago she fell and broke her right arm. She had a right humerus head fracture from fall. Patient has seen Dr. Saha for follow-up of Right humerus head fracture back on August 07. She is currently wearing a shoulder sling that she reports does not fit her correctly. She is still having quite a bit of pain in right arm. She has some hydrocodone at home to help with acute pain but has been taking Tylenol mostly for pain. She took Tylenol before she came to the ED. She is worried that she might have reinjured arm on Thursday. She says she was sleeping and woke up and jerked her right arm up causing severe pain in her right upper upper arm. Since then she is still been having pain in right arm and has pain in right forearm. She is also complaining of having some left fingertip numbness and tingling that started several days ago as well. Patient says when she had her fall 2 weeks ago she did hit her head and has been having neck pain ever since. She was evaluated in the [facility] ED after fall and they did not do any thing to check her neck. Associated symptoms: Deny chest pain, fever(s) or rash Review of Systems Const: Denies: fever(s), chills or fatigue Eyes: Denies: change in vision or eye discomfort ENMT: Denies: throat pain, odynophagia, nasal discharge or nasal congestion Card: Denies: chest pain, palpitations, edema, swelling of feet/ankles, dyspnea on exertion or orthopnea Resp: Denies: dyspnea, productive cough or non-productive cough GI: Denies: abdominal pain, nausea, vomiting, diarrhea, constipation or hematochezia : Denies: flank pain, dysuria or hematuria Musc: Reports: neck pain and extremity pain (Right upper arm and forearm pain.); Denies: back pain or extremity swelling Skin/Breast: Denies: rash or new lesions Neuro: Denies: headache(s), numbness in extremities or weakness in extremities FOR[facility]LY [facility], [facility] ED PFSH: Medical History ASHD (arteriosclerotic heart disease) Chronic migraine Diabetes mellitus Diastolic heart failure Gait instability History of WI (myocardial infarction) HTN (hypertension) Near syncope Pulmonary sarcoidosis Sarcoidosis Shortness of breath Surgical History History of elbow surgery History of heart artery stent S/P carpal tunnel release S/P hysterectomy Family History Mother Cancer Father Cancer CAD (coronary artery disease) Family/Other Cancer Sister CAD (coronary artery disease) Grandfather CAD (coronary artery disease) Family/Other CAD (coronary artery disease) Social History Smoking and tobacco status: former smoker Second hand smoke exposure: Yes Alcohol intake: current Alcohol intake frequency: holidays/special occasions only Alcohol type: wine Lives independently: Yes Household members: none Marital status: / Current occupational status: disabled Pets and animals: Yes Pets & animals: dog(s) History of recent travel: No Current gender identity: Female Physical Exam Const: COMMON NORMALS: patient oriented x3 and alert GENERAL APPEARANCE: cooperative and comfortable HENMT: COMMON NORMALS: normocephalic HEAD & SCALP: normocephalic MOUTH: Normal oral and palatal mucosa present THROAT: posterior oropharynx normal and uvula midline Neck/C-Spine: COMMON NORMALS: supple GENERAL: Yes normal visual inspection Resp: COMMON NORMALS: normal respiratory effort, No retractions, No use of accessory muscles and clear to auscultation bilaterally AUSCULTATION: clear to auscultation bilaterally Cardio: COMMON NORMALS: regular rate, regular rhythm, S1 normal heart sound present, S2 normal heart sound present, No gallops present (Cardio), No clicks present (Cardio), No murmurs present (Cardio) and Peripheral pulses 2+ thro ughout RATE: regular rate RHYTHM: regular rhythm HEART SOUNDS: S1 normal heart sound present and S2 normal heart sound present PERIPHERAL PULSES: Peripheral pulses 2+ throughout GI: COMMON NORMALS: Normal to inspection, nondistended, normoactive bowel sounds present, Soft to palpation, non-tender and no masses PALPATION: Yes Soft to palpation : COMMON NORMALS: Yes no CVA tenderness BLADDER/KIDNEY EXAM: Yes no CVA tenderness Back/Pelvis: COMMON NORMALS: no CVA tenderness Extremity: RIGHT UPPER EXTREMITY: Yes upper arm Right upper arm: Yes inspection (Ecchymosis and swelling near elbow. No deformity), Yes palpation (Tenderness over humeral head) and Yes neurovascular exam (Intact) Neuro: COMMON NORMALS: patient oriented x3 and moves all extremities SENSORIUM/ORIENTATION: Yes alert Skin: GENERAL SKIN EXAM: dry skin Course Vital Signs: Vital signs: Vital Signs Temperature 97.7 F 08/21/21 11:38 Pulse Rate 87 08/21/21 14:18 Respiratory Rate 16 08/21/21 14:09 Blood Pressure 129/87 08/21/21 14:18 Pulse Oximetry 98 08/21/21 14:18 MDM - Extremity (Nontraumatic) Medical Decision Making Patient is a 61-year-old female comes to the ED with right arm pain. Patient had a fall 2 weeks ago and was diagnosed with a humeral head fracture and is in shoulder sling. She is seen Dr. Saha for fracture back on August 07. She is worried she might of reinjured right arm. She is having right forearm pain along with right upper arm pain. Patient also is complaining of neck pain since she had a fall and at the [facility] emergency department they did not check her neck at all. Patient has some ecchymosis and swelling in the right upper arm. Tenderness over proximal humeral head. X-ray of forearm showed no acute findings or fractures. Right shoulder x-ray showed the healing fracture of the proximal but no other acute finding or new injury noted. CT of cervical spine showed no evidence of acute fracture or dislocation. Patient was put in a shoulder immobilizer to help with pain and comfort because right shoulder sling she had previously was uncomfortable for her. She was discharged home with a prescription for hydrocodone 7.58 tablets to help with pain. She has follow-up with Dr. Saha in a couple weeks. Return to ED precautions given. Patient understood and agree with plan. Lab Data Radiology Impressions Cervical Spine CT 08/21/21 12:39 IMPRESSION: No evidence of acute fracture or dislocation. Forearm X-Ray 08/21/21 12:39 IMPRESSION: No acute abnormality. Shoulder X-Ray 08/21/21 12:39 IMPRESSION: No definite acute abnormality superimposed on healing fracture of the proximal humerus Discharge Plan Discharge Patient Disposition: Home Clinical Impression: Fracture of neck of right humerus Qualifiers: Encounter type: subsequent encounter Fracture type: closed Fracture healing: with routine healing Qualified Code(s): S42.211D - Unspecified displaced fracture of surgical neck of right humerus, subsequent encounter for fracture with routine healing Condition: Stable Prescriptions: No Action clopidogrel 75 mg tablet 75 mg PO DAILY 0RF pantoprazole 40 mg tablet,delayed release (DR/EC) 40 mg PO DAILY 0RF metformin 1,000 mg tablet 1,000 mg PO BID 0RF omega-3 fatty acids [Fish Oil Concentrate] 1,000 mg capsule 1,000 mg PO DAILY 0RF gabapentin 100 mg capsule 200 mg PO BEDTIME 0RF melatonin 5 mg capsule 5 mg PO BEDTIME 0RF potassium chloride 10 mEq tablet extended release 10 meq PO EVERY OTHER DAY 0RF albuterol sulfate [ProAir HFA] 90 mcg/actuation HFA aerosol inhaler 2 puff inhalation Q6H PRN (Reason: Shortness Of Breath) 0RF cholecalciferol (vitamin D3) 25 mcg (1,000 unit) capsule 25 mcg PO DAILY 0RF mecobalamin (vitamin B12) 1,000 mcg tablet,chewable 1,000 mcg PO DAILY 0RF amlodipine PO 0RF meloxicam 15 mg tablet 15 mg PO DAILY Qty: 30 0RF nitroglycerin [Nitrostat] 0.4 mg tablet, sublingual 0.4 mg sublingual Q5M PRN (Reason: chest pain) Qty: 25 3RF Rx Instructions: do not exceed 3 doses per episode Discharge Orders: Discharge ED (Routine); Ordered 08/21/21 Ordered By: Inocencio Hinds Referrals: Reny Celis MD [Primary Care Provider] - Discharge Diet: Regular Discharge Activity: Increase activity as tolerated Patient Instructions: Opioid Safety Activity Restrictions/Additional Instructions: Follow-up with Dr. Saha at your next scheduled appointment.Take medications as prescribed. Return to the ER or your medical provider if condition worsens. Please read and understand discharge instructions. Thank you for choosing [facility] for your healthcare needs today. Please realize this is an emergency room and that we are providing you with a medical screening exam and this may not be complete and all inclusive of all the testing and or work up that you may need to determine your ailment or severity of your illness. It is very important that you follow up as instructed or that you return to the Emergency Department should you have concerns or if your condition changes or worsens in any way. Coding Level of Care Code ED Electric Hoist Operator for Alcides Treviño Exam Comprehensive
--- NOTE | 2021-08-21 11:53 | PC.NURSE ---
patient took 3- regular tylenol- unsure what MG dose, states she fell on right arm and now left finger tips are numb- concerned that she hot so hard she is concerned she hurt her neck- patient states she called Dr Looney office- advised she is out and that the patient should just could to the ER
--- NOTE | 2021-08-21 12:39 | XR_ITS ---
WS: [id number] XR forearm RT 2V [id number] REASON FOR EXAM: right forearm pain after fall 2 weeks ago FINDINGS: No distal or proximal radial ulnar dislocation. No radial or ulnar fracture. No significant soft tissue abnormality. XR/XR forearm RT 2V [id number] IMPRESSION: No acute abnormality.
--- NOTE | 2021-08-21 12:39 | CT_ITS ---
WS: [id number] CT CERVICAL TRAUMA TECHNIQUE: Noncontrast CT of the cervical spine with coronal and sagittal reformatted images. CLINICAL INFORMATION: Follow-up 2 weeks ago with neck pain COMPARISON: None. DLP: 646.[address] scans at [facility] use at least one of these dose optimization techniques: automated e xposure control; mA and/or kV adjustment per patient size (includes targeted exams where dose is matc hed to clinical indication); or iterative reconstruction. FINDINGS: Straightening of the normal cervical lordosis. Mild cervical curve. Slight anterolisthesis C3 on C4, C4 on C5, and C5 on C6. Anterior bridging osteophytes C7-T1. Normal craniocervical junction. Normal C 1-C2 articulation. Dens is normal in appearance. Normal occipital condyles. No high-grade spinal mara l narrowing. Normal C1 ring. No evidence of acute fracture or dislocation. Normal prevertebral soft tissues. Secretions in the RIGHT sphenoid sinus. Opacification RIGHT mastoid air cells. Mucosal thickening RIGHT middle ear. Normal posterior nasopharynx. CT/CT cervical spin wo con* [id number] IMPRESSION: No evidence of acute fracture or dislocation.
--- NOTE | 2021-08-21 12:39 | XR_ITS ---
WS: [email or web address] XR shoulder RT min 2V* [id number] REASON FOR EXAM: recent humeral fracture-possible reinjury FINDINGS: Compared to previous examination of 08/07/2021, there is a healing fracture of the surgical neck. No additional injury is identified. XR/XR shoulder RT min 2V* [id number] IMPRESSION: No definite acute abnormality superimposed on healing fracture of the proximal humerus
[2021-08-21 14:09] VITALS: RESP 16
[2021-08-21] MEDS: oxyCODONE 5 mg IR Tab/Cap PO (14:09)
[2021-08-21 14:18] VITALS: BP 129/87; PULSE 87; O2SAT 98
== END 2021-08-21 14:19 | disposition home or self-care (01) ==
PROVIDERS: Emergency Provider Physician Assistant; PCP Internal Medicine
DX: S42.291D Other displaced fracture of upper end of right humerus, subsequent encounter for fracture with routine healing (principal); W19.XXXD Unspecified fall, subsequent encounter
CPT/HCPCS: 29240; 72125; 73030; 73090; 99283

== ENCOUNTER → 2021-08-28 13:54 | Outpatient (BNVA) | payer MEDICARE, SELFPAY | PROVIDERS: PCP Internal Medicine; Visit Provider Specialist | DX: S42.211D Unspecified displaced fracture of surgical neck of right humerus, subsequent encounter for fracture with routine healing (principal); W18.49XD Other slipping, tripping and stumbling without falling, subsequent encounter; Z87.891 Personal history of nicotine dependence; D86.0 Sarcoidosis of lung; E11.9 Type 2 diabetes mellitus without complications; I10 Essential (primary) hypertension; I25.10 Atherosclerotic heart disease of native coronary artery without angina pectoris | CPT/HCPCS: 73030; 99214 ==

== ENCOUNTER → 2021-10-02 09:24 | Outpatient (BNVA) | payer MEDICARE, SELFPAY | PROVIDERS: PCP Internal Medicine; Visit Provider Specialist | DX: Z98.890 Other specified postprocedural states (principal); S42.211D Unspecified displaced fracture of surgical neck of right humerus, subsequent encounter for fracture with routine healing; W22.8XXD Striking against or struck by other objects, subsequent encounter | CPT/HCPCS: 73030 ==

== ENCOUNTER → 2021-10-16 09:44 | Outpatient (BNVA) | payer MEDICARE, SELFPAY | PROVIDERS: PCP Internal Medicine; Visit Provider Internal Medicine Critical Care Medicine | DX: D86.0 Sarcoidosis of lung (principal); I10 Essential (primary) hypertension; E11.8 Type 2 diabetes mellitus with unspecified complications | CPT/HCPCS: 99213 ==

== ENCOUNTER → 2021-10-30 08:26 | Outpatient (BNVA) | payer MEDICARE, SELFPAY | PROVIDERS: PCP Internal Medicine; Visit Provider Specialist | DX: S42.211D Unspecified displaced fracture of surgical neck of right humerus, subsequent encounter for fracture with routine healing (principal); X58.XXXD Exposure to other specified factors, subsequent encounter | CPT/HCPCS: 73030 ==

== ENCOUNTER 2021-12-11 12:30 | Outpatient (RCR) | payer MEDICARE, SELFPAY | END 2021-12-15 23:59 | disposition home or self-care (01) | LOC: SPT 12:30 | PROVIDERS: PCP Internal Medicine; Referring Provider Specialist; Visit Provider Specialist | DX: S42.91XD Fracture of right shoulder girdle, part unspecified, subsequent encounter for fracture with routine healing (principal); X58.XXXD Exposure to other specified factors, subsequent encounter | CPT/HCPCS: 97110; 97161 ==

== ENCOUNTER 2021-12-13 14:52 | Outpatient (CLI) | payer MEDICARE, SELFPAY ==
--- NOTE | 2021-12-13 15:19 | XR_ITS ---
WS: [email or web address] Exam: XR hip RT 2-3V wo/w pel* [id number] Date/Time of Exam: 12/13/2021 3:22 PM Reason For Exam: HIP PAIN, RIGHT Findings: No fractures or bone anomalies are noted. No unusual soft tissue masses or calcifications are seen. The bony elements of the hip are in adequate alignment. XR/XR hip RT 2-3V wo/w pel* [id number] IMPRESSION: Negative right hip. Tonnis classification: 0
== END 2021-12-13 14:53 | disposition home or self-care (01) ==
PROVIDERS: PCP Internal Medicine; Visit Provider Nurse Practitioner Family
DX: Z91.81 History of falling (principal); M25.551 Pain in right hip; M85.80 Other specified disorders of bone density and structure, unspecified site
CPT/HCPCS: 73502

== ENCOUNTER 2021-12-16 06:00 | Outpatient (RCR) | payer MEDICARE, SELFPAY | END 2022-01-15 23:59 | disposition home or self-care (01) | LOC: SPT 06:00 | PROVIDERS: PCP Internal Medicine; Visit Provider Specialist | DX: S42.201D Unspecified fracture of upper end of right humerus, subsequent encounter for fracture with routine healing (principal); X58.XXXD Exposure to other specified factors, subsequent encounter | CPT/HCPCS: 97110 ==

== ENCOUNTER 2022-01-16 06:00 | Outpatient (RCR) | payer MEDICARE, SELFPAY | END 2022-02-14 23:59 | disposition home or self-care (01) | LOC: SPT 06:00 | PROVIDERS: PCP Internal Medicine; Visit Provider Specialist | DX: S42.201D Unspecified fracture of upper end of right humerus, subsequent encounter for fracture with routine healing (principal); X58.XXXD Exposure to other specified factors, subsequent encounter; M25.511 Pain in right shoulder | CPT/HCPCS: 97110 ==

== ENCOUNTER → 2022-01-22 07:27 | Outpatient (BNVA) | payer MEDICARE, SELFPAY | PROVIDERS: PCP Internal Medicine; Visit Provider Specialist | DX: S42.211D Unspecified displaced fracture of surgical neck of right humerus, subsequent encounter for fracture with routine healing (principal); X58.XXXD Exposure to other specified factors, subsequent encounter | CPT/HCPCS: 73030; 99213 ==

== ENCOUNTER 2022-02-15 06:00 | Outpatient (RCR) | payer MEDICARE, SELFPAY | END 2022-03-17 23:59 | disposition home or self-care (01) | LOC: SPT 06:00 | PROVIDERS: PCP Internal Medicine; Visit Provider Specialist | DX: S42.201D Unspecified fracture of upper end of right humerus, subsequent encounter for fracture with routine healing (principal); X58.XXXD Exposure to other specified factors, subsequent encounter; M25.511 Pain in right shoulder | CPT/HCPCS: 97110 ==

== ENCOUNTER 2022-03-12 01:00 | Outpatient (CLI) | payer MEDICARE, SELFPAY | END 2022-03-12 21:18 | disposition home or self-care (01) | LOC: RAD 04-01 21:18 | PROVIDERS: PCP Internal Medicine; Visit Provider Specialist | DX: S42.211D Unspecified displaced fracture of surgical neck of right humerus, subsequent encounter for fracture with routine healing; X58.XXXD Exposure to other specified factors, subsequent encounter | CPT/HCPCS: 99213 ==

== ENCOUNTER → 2022-03-12 15:01 | Outpatient (BNVA) | payer MEDICARE, SELFPAY | PROVIDERS: PCP Internal Medicine; Visit Provider Specialist | DX: S42.211D Unspecified displaced fracture of surgical neck of right humerus, subsequent encounter for fracture with routine healing (principal); X58.XXXD Exposure to other specified factors, subsequent encounter | CPT/HCPCS: 73030 ==

== ENCOUNTER 2022-03-18 06:00 | Outpatient (RCR) | payer MEDICARE, SELFPAY | END 2022-04-16 23:59 | disposition home or self-care (01) | LOC: SPT 06:00 | PROVIDERS: PCP Internal Medicine; Visit Provider Specialist | DX: S42.201D Unspecified fracture of upper end of right humerus, subsequent encounter for fracture with routine healing (principal); X58.XXXD Exposure to other specified factors, subsequent encounter | CPT/HCPCS: 97032; 97110 ==

== ENCOUNTER 2022-04-14 14:52 | Outpatient (CLI) | payer MEDICARE, SELFPAY ==
--- NOTE | 2022-04-14 15:15 | MM_ITS ---
WS: [id number] BILATERAL 3D TOMOSYNTHESIS DIGITAL SCREENING MAMMOGRAPHY WITH CAD CLINICAL INFORMATION: SCREENING HISTORY: Screening mammogram. RIGHT breast soreness COMPARISON: April 09, 2021 TECHNIQUE: Bilateral CC and MLO views. FINDINGS: Scattered fibroglandular densities bilaterally. No suspicious focal mass, asymmetry, calcifications, or architectural distortion. No evidence of malignancy. Punctate and lucent centered calcifications. MM/[place] [id number] IMPRESSION: BI-RADS: 2-Benign FOLLOW UP: 1 Year Follow-up Recommend return to annual screening mammography.
== END 2022-04-14 14:53 | disposition home or self-care (01) ==
LOC: RAD 14:53
PROVIDERS: PCP Internal Medicine; Visit Provider Internal Medicine
DX: Z12.31 Encounter for screening mammogram for malignant neoplasm of breast (principal)
CPT/HCPCS: 77063; 77067

== ENCOUNTER 2022-04-17 06:00 | Outpatient (RCR) | payer MEDICARE, SELFPAY | END 2022-05-17 23:59 | disposition home or self-care (01) | LOC: SPT 06:00 | PROVIDERS: PCP Internal Medicine; Visit Provider Specialist | DX: S42.201D Unspecified fracture of upper end of right humerus, subsequent encounter for fracture with routine healing (principal); X58.XXXD Exposure to other specified factors, subsequent encounter; M25.511 Pain in right shoulder | CPT/HCPCS: 97110 ==

== ENCOUNTER 2022-04-23 10:34 | Outpatient (CLI) | payer MEDICARE, SELFPAY ==
--- NOTE | 2022-04-23 10:15 | MR_ITS ---
WS: [id number] MRI RIGHT SHOULDER NONCONTRAST TECHNIQUE: Sagittal T2, coronal T1, T2 and proton density imaging. Axial gradient PDE imaging. CLINICAL INFORMATION: evaluation of rotator cuff, current right humerus fracture FINDINGS: Moderate degenerative arthritis AC joint. Mild edema. Moderate downsloping of the acromion. Subacromi al spurring. Impingement on the distal supraspinatus. Fluid in the AC joint with subacromial fluid. N arrowing of the subacromial space. Again seen is the previously described fracture of the RIGHT humer al neck with residual tiny visualized fracture line with a small amount of associated edema. Normal a lignment. Slight impaction with mild cortical step-off medially along the head and neck junction. Articular luis felipe face of the humeral head is normal. No evidence of avascular necrosis. Biceps tendon is absent from t he bicipital groove. Subscapularis appears intact. Chronic thinning of the distal supraspinatus. Norm al infraspinatus. Normal teres minor. MR/MR shoulder RT wo con* [id number] IMPRESSION: Some images degraded by motion. 1. Incompletely healed fracture of the RIGHT humeral neck with residual small visualized fracture lines with associated edema. No displacement. Mild impactio n. 2. Moderate degenerative arthritis AC joint with mild edema and small amount o f subacromial fluid. Narrowing of the subacromial space with undersurface spurr ing. 3. Marked chronic thinning of the distal supraspinatus which appears intact. 4. Normal infraspinatus and teres minor. 5. Biceps tendon is not visualized within the bicipital groove likely chronica lly torn. Subscapularis appears intact. 6. No other acute findings.
== END 2022-04-23 10:35 | disposition home or self-care (01) ==
LOC: RAD 10:36
PROVIDERS: PCP Internal Medicine; Visit Provider Specialist
DX: S42.211A Unspecified displaced fracture of surgical neck of right humerus, initial encounter for closed fracture (principal); X58.XXXA Exposure to other specified factors, initial encounter; M19.011 Primary osteoarthritis, right shoulder
CPT/HCPCS: 73221

== ENCOUNTER → 2022-05-28 15:04 | Outpatient (BNVA) | payer MEDICARE, SELFPAY | PROVIDERS: PCP Internal Medicine; Visit Provider Specialist | DX: S42.211G Unspecified displaced fracture of surgical neck of right humerus, subsequent encounter for fracture with delayed healing (principal); W01.0XXD Fall on same level from slipping, tripping and stumbling without subsequent striking against object, subsequent encounter | CPT/HCPCS: 99213 ==

== ENCOUNTER 2022-06-12 06:00 | Outpatient (RCR) | payer MEDICARE, SELFPAY | END 2022-06-17 23:59 | disposition home or self-care (01) | LOC: SPT 06:00 | PROVIDERS: Visit Provider Specialist | DX: M25.511 Pain in right shoulder (principal) | CPT/HCPCS: 97161 ==

== ENCOUNTER 2022-06-18 06:00 | Outpatient (RCR) | payer MEDICARE, SELFPAY | END 2022-07-15 23:59 | disposition home or self-care (01) | LOC: SPT 06:00 | PROVIDERS: Visit Provider Specialist | DX: S42.301D Unspecified fracture of shaft of humerus, right arm, subsequent encounter for fracture with routine healing (principal); X58.XXXD Exposure to other specified factors, subsequent encounter | CPT/HCPCS: 97110; 97530 ==

== ENCOUNTER 2022-09-09 12:48 | Outpatient (CLI) | payer MEDICARE, SELFPAY | END 2022-09-09 12:49 | disposition home or self-care (01) | PROVIDERS: PCP Internal Medicine; Visit Provider Internal Medicine | DX: R06.02 Shortness of breath (principal) | CPT/HCPCS: 94010; 94726; 94729 ==

== ENCOUNTER → 2022-09-11 12:25 | Outpatient (BNVA) | payer MEDICARE, SELFPAY | PROVIDERS: PCP Internal Medicine; Visit Provider Internal Medicine Cardiovascular Disease | DX: D86.0 Sarcoidosis of lung (principal); E11.9 Type 2 diabetes mellitus without complications; I25.10 Atherosclerotic heart disease of native coronary artery without angina pectoris; I11.0 Hypertensive heart disease with heart failure; I50.30 Unspecified diastolic (congestive) heart failure; Z79.84 Long term (current) use of oral hypoglycemic drugs | CPT/HCPCS: 99213 ==

== ENCOUNTER → 2022-10-20 14:22 | Outpatient (BNVA) | payer MEDICARE, SELFPAY | PROVIDERS: PCP Internal Medicine; Visit Provider Podiatrist Foot & Ankle Surgery | DX: S82.851A Displaced trimalleolar fracture of right lower leg, initial encounter for closed fracture (principal); W18.40XA Slipping, tripping and stumbling without falling, unspecified, initial encounter | CPT/HCPCS: 73600; 73630; 99204 ==

== ENCOUNTER 2022-10-24 06:02 | Day surgery (SDC) | payer MEDICARE, SELFPAY ==
[2022-10-23 08:40] VITALS: BMI 33.8
[2022-10-24] VITALS (7 sets, daily range): BP systolic 139–210; BP diastolic 72–119; PULSE 68–77; RESP 16–18; TEMP 36.2–37.1; O2SAT 94–98
--- NOTE | 2022-10-24 | XR_ITS ---
WS: [email or web address] Right ankle, fluoroscopy views, 10/24/2022 Clinical Data: orif ankle Comparison: Right ankle, 10/20/2022 Findings: Dr. Hopkins repaired the trimalleolar fracture of the right ankle with a distal lateral fibular plate and multiple screws. The medial malleolar fracture is repaired with a medial plate and 2 screws. XR/XR ankle RT 2V [id number] Impression: Internal fixation of trimalleolar fracture of the right ankle.
--- NOTE | 2022-10-24 06:16 | W.PM.OPSUD ---
Surgery/Procedure H&P Update DATE OF PROCEDURE: October 24, 2022 DATE H&P PERFORMED: 10/20/22 CHANGES TO PREVIOUS DOCUMENTATION: none PREOP DIAGNOSIS: Right trimalleolar fracture PLANNED PROCEDURE: Operation Date: 10/24/22 07:00 Proposed Procedures p Open reduction internal fixation right ankle fracture CPT. 01389, S82.851A(Right) - Chadd Hopkins DPM
--- NOTE | 2022-10-24 06:17 | P.OP_ITS ---
Operative Report Date of procedure: October 24, 2022 Pre-op diagnosis: Preop Diagnosis Right trimalleolar fracture Post-op diagnosis: Right trimalleolar fracture Procedure done: Open reduction internal [place]. [address] Implants: Eva anatomic fibular plate, reactive screw, hook plate, 3.5 mm locking screws, 2-0 Vicryl, 3-0 Vicryl, skin mohit Surgeon: Chadd Hopkins D.P.M. Resource Analyst: Barbi Estimated blood loss: 20 71 IV fluids: None Urine output: None Complications: None Brief History: 62-year-old female presents with displaced right trimalleolar fracture, fractures closed, occurred 10/18/2020 [place] along a river and tripping on a rock.? SER 4 fracture pattern.? Posterior malleolus fracture involves less than 10% of the articular surface. X-ray right foot and right ankle taken and reviewed.? Has SER 4 fracture with medial gutter widening. On exam patient has appropriate soft tissue to proceed with surgery this week.? There is no laceration or wound, no fracture blisters present.? Mild edema and minimal ecchymosis. Patient advised to keep her foot elevated at all times.? New posterior Villeda splint was applied with ankle in neutral position.? She is to remain strict nonweightbearing she is accomplishing this with a wheelchair.? She is on chronic hydrocodone for back pain.? This is controlling her pain at this time.? Planning on giving her an increased dose of pain medication postoperatively for 1 to 2 weeks.? Discussed utility of a popliteal block patient would like to have this done preoperatively.? I reviewed at length with the patient, the risks, potential complications, benefits, alternatives, expectations, and typical outcomes associated with the surgery. The risks and potential complications were explained in detail, including but not limited to infection, wound dehiscence or soft tissue complications, bleeding and hematoma, chronic edema, neuritis or nerve damage producing numbness or chronic pain, CRPS, failure to relieve pain or worsening pain, thick / painful / unsightly scar, limited motion / stiffness, malposition, delayed union, malunion, or nonunion, fracture, reaction to implants, anesthetic complications, venous thromboembolism, and deformity recurrence.? I discussed the notion of no regrets with the patient as it pertains to complications and outcomes. The patient seemed to understand the nature of the proposed care and required convalescence. They asked appropriate questions, answered to their satisfaction. They are aware no guarantees can be made as to a satisfactory outcome and they understand there may be other possible unforeseen complications or outcomes not listed here that will be treated accordingly if they arise. There were no written or implied guarantees given to the patient. They gave informed consent to proceed. Procedure: Under mild sedation the patient was brought to the operating room. Timeout was performed. Spinal block was performed per anesthesia. Patient was placed onto the operating table in supine position. Anesthesia was then administered by the anesthesia service. Local anesthesia was injected by myself subcutaneously proximal to the medial and lateral malleolus utilizing 20 cc total of Exparel. Well-padded pneumatic tourniquet applied to the right high calf. The right lower extremity was scrubbed, prepped and draped utilizing normal aseptic technique. Right lower extremity was exanguinated with an Esmarch bandage and the tourniquet inflated to 250 mmHg. Attention was directed to the lateral right ankle where bony landmarks were palpated. Palpated the lateral malleolus and distal fibula. Directly over the lateral malleolus a linear longitudinal incision was made through skin with a #15 blade with dissection carried down through subcutaneous tissue to the layer of periosteum utilizing sharp and blunt technique. Care was taken to retract and preserve neurovascular and tendinous structures. All bleeders were ligated and cauterized as necessary. Periosteal incision was made and hematoma was evacuated from the fibular fracture this was then reduced and fixated utilizing a Eva anatomic plate with 3.5 mm locking screws. Excellent bony apposition and compression noted. Fibula is rectus and pulled out to length without angulation or rotation. Intraoperative C arm and AP, oblique and lateral views confirmed that hardware did not violate the ankle joint or the lateral gutter. Attention was then directed to the medial malleolus where a curvilinear incision was made through skin with a #15 blade with dissection carried down through subcutaneous tissue to the layer of periosteum utilizing sharp and blunt technique. Care was taken to retract and preserve neurovascular and tendinous structures. All bleeders were ligated and cauterized as necessary. Fracture hematoma was evacuated and flushed with saline solution followed by reduction and fixation utilizing a hook plate with excellent bony apposition and compression, ankle mortise was congruent with medial malleolar fracture anatomically reduced. Fixated utilizing 3.5 mm locking and nonlocking screws. Hardware was confirmed to not violate the ankle mortise utilizing AP, oblique and lateral views of the ankle with mini C arm. Hook test was positive for syndesmotic disruption, syndesmosis within stabilized utilizing a release 3.9 mm x 45 mm Eva syndesmotic screw. After fixating the syndesmosis the ankle joint range of motion appreciated intraoperatively was smooth without crepitus and had full range of motion. Incisions were irrigated and closed in a layered fashion. Periosteum was reapproximated utilizing 2-0 Vicryl, subcutaneous tissue was reapproximated utilizing 3-0 Vicryl and skin with mohit. Adaptic, sterile 4 x 4's, Kerlix and a well-padded multilayer compressive Villeda splint was applied with stirrup. Tourniquet was deflated and a prompt hyperemic response was noted to the distal digits of the right foot. Patient tolerated the procedure and anesthesia well and was transferred to the PACU with vital signs stable and vascular status intact. Following a period of postoperative monitoring she will be discharged home. Will require a home health aide this will be applied for today. Patient is required to remain strict nonweightbearing, she has a wheelchair to facilitate this, she requires assistance with everyday living, she is unable to drive as her injury is her right ankle. I am writing to request coverage for home health aide services for my patient, Danae Blas, following their recent right ankle surgery. As the attending surgeon, I am providing this letter of medical necessity to support the need for these services to facilitate the patient's recovery and ensure their safety and well-being during this critical post-operative period. Patient Information: ? Name: Danae Blas ? Date of : 1960 ? Diagnosis: Right trimalleolar fracture ? Treating Physician: Chadd Hopkins D.P.M. ? Procedure Date: 10/24/2022 ? Expected Duration of Recovery: 6 weeks Medical Justification: Patient will require assistance with everyday living status post open reduction internal fixation right trimalleolar fracture requiring her to be strict nonweightbearing. In light of the patient's condition and the extent of the surgical procedure, it is my professional opinion that a home health aide is medically necessary to ensure a safe and effective recovery process. The following are the essential services that the home health aide would provide: 1.? Assistance with Mobility: The patient requires support and assistance with transfers, ambulation, and mobility due to the restricted weight-bearing protocol and limitations caused by the right ankle surgery. 2.? Medication Management: The home health aide will ensure the patient's m edication regimen is followed accurately, assisting with medication reminders, organizing pillboxes, and monitoring for any adverse reactions or complications. 3.? Right posterior splint is to be kept clean, dry and intact.? Personal Care: Assistance is needed with activities such as bathing, grooming, and dressing, as the patient's mobility is limited during the recovery period. 4.? Meal Preparation and Nutrition: The home health aide will help plan and prepare nutritious meals to support the patient's recovery and ensure they maintain a balanced diet. 5.? Light Housekeeping: The aide will assist with light housekeeping tasks, including laundry, keeping the patient's living environment clean and safe during their recovery. By providing a home health aide, we can enhance the patient's overall recovery process, reduce the risk of complications, and promote their physical and emotional well-being during this critical period. Without such assistance, the patient's recovery may be compromised, and they may face an increased risk of falls, infection, medication errors, and other potential complications. I have attached relevant medical documentation, including operative reports, post-operative care instructions, and any additional reports that support the necessity of home health aide services for the patient. I kindly request that you review this information and provide the appropriate coverage for the requested services. Thank you for your attention to this matter. I appreciate your prompt review and consideration of this request for home health aide services to support the patient's recovery and ensure optimal outcomes. Sincerely,
[2022-10-24] MEDS: sodium chloride 0.9% 1,000 ML 30 ML IV (06:22)
[2022-10-24 06:29] LABS: Glucose Point of Care 242 mg/dL (70-110)
--- NOTE | 2022-10-24 07:13 | ANES.PREANE2 ---
Pre-Anesthetic Assessment Height/Weight: Height 1.57 m Weight 83.915 kg Temp Pulse Resp BP Pulse Ox O2 Del Method 97.9 F 75 16 210/119 94 Room Air 10/24/22 06:11 10/24/22 06:11 10/24/22 06:11 10/24/22 06:11 10/24/22 06:11 10/24/22 06:11 Preop Diagnosis: Right trimalleolar fracture Operation Date: 10/24/22 07:00 Proposed Procedures p Open reduction internal fixation right ankle fracture CPT. 73973, S82.851A(Right) - Chadd Hopkins DPM Familial anesthetic complications: None Was Beta Alec taken within 24 hours: N/A Was Clonidine taken within 24 hours: N/A Last intake: Intake Last Liquid Date 10/23/22 Last Liquid Time 23:30 Last Solid Date 10/23/22 Social No alcohol and No tobacco Exam alert, oriented x 3, clear to auscultation bilaterally and regular rate & rhythm Airway Mallampati: Class III Dentition: full Pulmonary pulmonary sarcoidosis CV/HEM Coronary Artery Disease and Hypertension plavix last thursday so will perform spinal in setting of requirement for coronary investigation GI Gastroesophageal Reflux Disease Metabolic Diabetes Mellitus Anesthetic Plan ASA status: 3 Anesthesia: Regional (specify below) (spinal + adductor) Other Pertinent Information Patient is supposed to undergo stress test/angiogram for cardiac symptoms. Dr. Hopkins initiated multidisciplinary team approach and coordinated with cardiologists Dr. Brown and Dr. Anderson. If the patient requires stenting, she will not be able to stop anticoagultion, which would significantly compromise safety of ankle repair. Team decision was made to proceed with Ankle surgery first and then undergo further coronary investigation. Patient aware and educated on risks. Will proceed with spinal. Medications/Allergies Home Medications Medication Instructions Recorded Confirmed Last Taken Type clopidogrel 75 mg tablet 75 mg PO DAILY 09/20/19 10/23/22 10/18/22 History metformin 1,000 mg tablet 1,000 mg PO BID 09/20/19 10/24/22 10/23/22 History omega-3 fatty acids 1,000 mg 1,000 mg PO DAILY 09/20/19 10/24/22 10/23/22 History capsule (Fish Oil Concentrate) pantoprazole 40 mg tablet,delayed 40 mg PO DAILY 09/20/19 10/24/22 10/23/22 History release gabapentin 100 mg capsule 200 mg PO BEDTIME 10/27/19 10/24/22 10/23/22 History cholecalciferol (vitamin D3) 25 25 mcg PO DAILY 07/13/20 10/24/22 10/23/22 History mcg (1,000 unit) capsule albuterol sulfate 90 mcg/actuation 2 puff inhalation Q6H PRN 08/22/20 10/24/22 10/23/22 History aerosol inhaler (ProAir HFA) Shortness Of Breath mecobalamin (vitamin B12) 1,000 1,000 mcg PO DAILY 12/14/20 10/24/22 10/23/22 History mcg chewable tablet nitroglycerin 0.4 mg sublingual 0.4 mg sublingual Q5M PRN chest 02/11/21 10/24/22 10/23/22 Rx tablet (Nitrostat) pain #25 tabs amlodipine 5 mg tablet 5 mg PO DAILY 08/28/21 10/24/22 10/23/22 History potassium chloride 10 mEq 10 meq PO EVERY OTHER DAY #90 tabs 08/28/21 10/24/22 10/23/22 Rx tablet,extended release zinc 50 mg tablet 50 mg PO DAILY 09/27/21 10/24/22 10/23/22 History furosemide 20 mg tablet 20 mg PO DAILY 10/16/21 10/24/22 10/23/22 History ascorbic acid (vitamin C) 500 mg 500 mg PO DAILY 09/11/22 10/24/22 10/23/22 History capsule escitalopram oxalate 10 mg tablet 10 mg PO DAILY 09/11/22 10/24/22 10/23/22 History Bone growth stimulator. #1 ea 10/07/22 10/20/22 Unknown Rx hydrocodone 10 mg-acetaminophen 1 tab PO Q6H PRN pain 7 days #28 10/24/22 Unknown Rx 325 mg tablet tabs Allergies Allergy/AdvReac Type Severity Reaction Status Date / Time Sulfa (Sulfonamide Allergy Unknown break out Verified 10/24/22 06:09 Antibiotics) and has trouble breathing Current Medications Generic Name Dose Route Start Last Admin Trade Name Freq PRN Reason Stop Dose Admin Sodium Chloride 1,000 mls @ 30 mls/hr 10/24/22 06:00 10/24/22 06:22 Sodium Chloride 0.9% IV 10/25/22 05:59 30 mls/hr .Q24H LAVELL Administration PFSH Anesthesia Medical History ASHD (arteriosclerotic heart disease) Chronic migraine Diabetes mellitus Diastolic heart failure Gait instability History of 2019 novel coronavirus disease (COVID-19) History of [place] (myocardial infarction) HTN (hypertension) Near syncope Opioid contract exists Pulmonary sarcoidosis Sarcoidosis Shortness of breath Surgical History History of elbow surgery History of heart artery stent S/P carpal tunnel release S/P hysterectomy Family History Mother Bleeding disorder Father Diabetes Hyperlipidemia Hypertension Heart disease Brother Diabetes Hypertension Sister Hypertension Thyroid disease Family/Other Breast cancer maternal and paternal aunt Colon cancer paternal uncles Prostate cancer paternal uncle Denies family history of Cervical cancer Ovarian cancer Uterine cancer Stroke Social History Smoking and tobacco status: never smoked Substance/Drug Use: never Do you think of yourself as: Straight/Heterosexual Data Anesthesia 10/24/22 06:59 Cardiac Studies: Echocardiogram 01/07/21 Echocardiogram Ultrasound 10/07/19
[2022-10-24 07:22] LABS: Alanine Aminotransferase 9 U/L (0-33); Alkaline Phosphatase 81 U/L (35-105); Anion Gap 15.4 (5-19); Aspartate Amino Transferase 14 U/L (0-32); Blood Urea Nitrogen 13 mg/dL (8-23); Calcium 9.1 mg/dL (8.5-10.5); Carbon Dioxide 28 mmol/L (22-29); Chloride 100 mmol/L (98-107); Globulin 2.7 g/dL (1.3-4.6); Glomerular Filtration Rate 124.6 mL/min (90-130); Glucose 281 mg/dL (65-115); Osmolality Calculated 300 mOsm/kg (285-295); Potassium 3.4 mmol/L (3.5-5.1); Sodium 140 mmol/L (136-145); Total Bilirubin 0.5 mg/dL (0.15-1.2); Total Protein 6.7 g/dL (6.6-8.7)
[2022-10-24] MEDS: ceFAZolin 2,000 MG in sodium chloride 0.9% (plus) 50 ML 100 MG IV (07:31)
[2022-10-24] MEDS: HYDROcodone-acetaminophen 5-325 mg Tablet 1 TAB PO (10:04)
--- NOTE | 2022-10-24 12:10 | PC.NURSE ---
patient able to transfer to bedside [facility] and able to urinate. patients states she has feeling to left leg and able to put weight on feels comfort with discharge.
--- NOTE | 2022-10-24 14:03 | ANE.PACU2 ---
Inpatient post-anesthesia follow up: Airway intact: Yes Vital signs: Temperature 98.7 F Pulse Rate 74 Respiratory Rate 17 Blood Pressure 161/72 Pulse Oximetry 98 Oxygen Delivery Me thod Room Air Oxygen Flow Rate Fraction of Inspir ed Oxygen Hydration adequate: Yes Nausea and vomiting: No Pain level: 1 Mental status: Baseline
== END 2022-10-24 12:13 | disposition home or self-care (01) ==
PROVIDERS: Anesthesiology; PCP Internal Medicine; Visit Provider Podiatrist Foot & Ankle Surgery
PROC: (CPT 27822; principal; 2022-10-24 07:00)
DX: W18.40XA Slipping, tripping and stumbling without falling, unspecified, initial encounter (principal); S82.851A Displaced trimalleolar fracture of right lower leg, initial encounter for closed fracture; K21.9 Gastro-esophageal reflux disease without esophagitis; I25.10 Atherosclerotic heart disease of native coronary artery without angina pectoris; I11.0 Hypertensive heart disease with heart failure; Z79.02 Long term (current) use of antithrombotics/antiplatelets; E11.9 Type 2 diabetes mellitus without complications; I50.30 Unspecified diastolic (congestive) heart failure; Z79.891 Long term (current) use of opiate analgesic; Z79.84 Long term (current) use of oral hypoglycemic drugs
CPT/HCPCS: 27822; 36416; 73600; 76000; 80053; 82962; C1713; C9290; J0690; J1100; J2370; J2704; J2795; J3010; J3490; J7030

== ENCOUNTER → 2022-11-06 15:10 | Outpatient (BNVA) | payer MEDICARE, SELFPAY | PROVIDERS: PCP Internal Medicine; Visit Provider Podiatrist Foot & Ankle Surgery | DX: Z98.890 Other specified postprocedural states (principal); S82.851D Displaced trimalleolar fracture of right lower leg, subsequent encounter for closed fracture with routine healing; X58.XXXD Exposure to other specified factors, subsequent encounter | CPT/HCPCS: 73610; 97760; 99024; L4361 ==

== ENCOUNTER 2022-11-06 16:07 | Outpatient (CLI) | payer MEDICARE, SELFPAY | END 2022-11-06 16:08 | disposition home or self-care (01) | LOC: SPT 16:07 | PROVIDERS: PCP Internal Medicine; Visit Provider Podiatrist Foot & Ankle Surgery | DX: Z46.89 Encounter for fitting and adjustment of other specified devices (principal); Z98.890 Other specified postprocedural states | CPT/HCPCS: 97760; 99024; L4361 ==

== ENCOUNTER → 2022-11-14 08:16 | Outpatient (BNVA) | payer MEDICARE, SELFPAY | PROVIDERS: PCP Internal Medicine; Visit Provider Podiatrist Foot & Ankle Surgery | DX: S82.851A Displaced trimalleolar fracture of right lower leg, initial encounter for closed fracture (principal); X58.XXXA Exposure to other specified factors, initial encounter | CPT/HCPCS: 73610 ==

== ENCOUNTER → 2022-11-20 15:11 | Outpatient (BNVA) | payer MEDICARE, SELFPAY | PROVIDERS: PCP Internal Medicine; Visit Provider Podiatrist Foot & Ankle Surgery | DX: S82.851D Displaced trimalleolar fracture of right lower leg, subsequent encounter for closed fracture with routine healing (principal); W18.40XD Slipping, tripping and stumbling without falling, unspecified, subsequent encounter; Z98.890 Other specified postprocedural states | CPT/HCPCS: 73610; 99024 ==

== ENCOUNTER 2022-11-21 06:12 | Outpatient (CLI) | payer MEDICARE, SELFPAY ==
[2022-11-21] VITALS (11 sets, daily range): BP systolic 112–152; BP diastolic 77–98; PULSE 73–88; RESP 12–18; TEMP 36.6; O2SAT 90–97; BMI 93.4
--- NOTE | 2022-11-21 06:00 | XACV_ITS ---
Exam Room: 2 Ht: 157 cm Wt: 96 kg BSA: 2.10 m2 Gender: Female : 1960 Any Known Allergies: Sulfa Exam Priority: Routine Procedure(s): Procedure Description: Diagnostic procedure Procedure Description: Coronary Angiography MOHINIJovanye; Diagnostic Cath Status: Elective Diagnostic Findings * Patient with known coronary disease and prior stents to the LAD and right coronary arteries. Also with stable sarcoidosis. Presented to the office with multiple symptoms including chest pain, shortness of breath, dizziness among others. Requested coronary angiography. * Coronary angiography reveals right coronary artery dominance. The left main coronary artery is normal and bifurcates into the left anterior descending and circumflex. There is a stent in the mid LAD which is patent. The remainder of the LAD contains mild diffuse luminal irregularities. The circumflex is normal. The right coronary artery is the dominant vessel and ends distally as the posterior descending artery from which multiple small branches emanate. There appears to be a stent in the distal right coronary artery which is patent with minimal in-stent restenosis. Prior to the stent there is a 40% eccentric stenosis. In the small mid posterior descending artery there is a 60 to 70% stenosis. This vessel is quite small and probably too small to intervene upon. It subtends a small amount of myocardium.. * The procedure was done from the right radial artery. Patient has a previous injury to the wrist with scar tissue over the artery. PCI Status: Elective Conclusions 1. Previously placed LAD and right coronary artery stents are patent. Minimal nonobstructive coronary artery disease. Recommendations * Continued medical treatment. Interventional RX Recommendation: none Diagnostic RX Recommendation: medical therapy and/or counseling Anticoagulation: Heparin Pressures Phase:Rest AO : 114 / 68 ( 89 ) @ 8:17:00 AM 115 / 69 ( 89 ) @ 8:19:00 AM 94 / 58 ( 74 ) @ 8:22:00 AM Clinical Evaluation EBL: 5mL-10mL Procedural Details Procedure Consent Obtained. Admit Source: Out Patient. Pre-Procedure Time Out. Identified patient by full name and date of as verbalized by the patient/guarantor. Does the consent match the physician's order: Yes. Accurate & Complete Informed Consent: Yes. Inpatient/Outpatient History & Physical on Chart: Yes. If H&P is completed, is and addenduem needed: No; If yes, is the addendum complete: N/A. Visualize and Verify Site with Patient/Guarantor: N/A. Relevant Radiology Images available: N/A. The risks, benefits, and alternatives of sedation and/or procedure were discussed by physician. The patient agrees to continue. [facility] Clinical Fraility Score: 3: Managing Well. Wheel Grinder Indications: known coronary disease. Chest Pain Symptom Assessment: Typical Angina Symptoms. Correct patient, site and procedure confirmed by cath team. PERRLA. Strong, equal hand cardiovascular physician assistant bilaterally. Lungs clear x 5 lobes. Procedure started. IV Site on Arrival: 20 gauge in the right anticubital. IV Fluids: D5/.45% NaCl at KVO. mL infused prior to blood and plasma laboratory assistant. IV Fluids: 0.9% NaCl at KVO. 0 mL infused prior to blood and plasma laboratory assistant. Pre Procedural Pulses: bilateral radial was 3+. Pre Procedural Pulses: left posterior tibial was 1+. Pre Procedural Pulses: left dorsalis pedis was 1+. Oxygen started at 2liters/min via nasal canula. right groin was prepped with chloroprep then draped in the usual sterile fashion. right radial was prepped with chloroprep then draped in the usual sterile fashion. Physician notified. Baseline sample Acquired. HR: 86 BPM. Physician arrived. Physician scrubbed in. Immediate Pre-Procedure Time Out. Correct Patient: Yes; Correct Procedure: Yes; Correct Site: Yes; Correct Patient Position: Yes; Correct Supplies: Yes; Dried Flammable Prep: Yes; Blood Products Available: N/A;. Elina Chase was relieved by Lili Ramachandran RN as monitoring person. Lidocaine 1% infiltrated to the right radial. Arterial access obtained. A 5 belgian TIG catheter in over wire. Multiple views taken of left coronary artery. Catheter redirected to the RCA. Multiple views taken of right coronary artery. Physician review of cine films. Physician scrubbed out. A TR Band was successful obtaining hemostatsis at the Right Radial artery insertion site. Post Procedure: Pulses reassessed and unchanged. PERRLA. Strong, equal hand cardiovascular physician assistant bilaterally. No VTE prophylaxis required. Medication's Wasted: Other = Versed 1 mg. Medication's Wasted: Nitro = 49.8 mg. Medication's Wasted: Heparin = 1000 u. Medication's Wasted: Lidocaine 1% = 7 mL. Total IV fluids: 20 mL. Post-op diagnosis: Non Obstructive CAD. Complications: none. Estimated blood loss: 5mL-10mL. Responsiveness - Normal response to verbal stimuli; alert and oriented, PERRLA. Airway - Unaffected, no intervention required; spontaneous ventilation. Circulation: W/N/L, pulses unchanged. Nausea/Vomiting: No. Procedure completed. Patient transferred by bed to CPRU. Vital chart was stopped. Access Site Site: Right Radial artery Sheath Size: 6 Fr Hemostasis Method: TR Band Hemostasis Success: Successful Procedure Medications Start: 7:05 AM Stop: 7:05 AM Medication: Versed Amount: 1 mg Route: I.V. Start: 7:05 AM Stop: 7:05 AM Medication: Fentanyl Amount: 50 mcg Route: I.V. Start: 7:11 AM Stop: 7:11 AM Medication: Versed Amount: 1 mg Route: I.V. Start: 7:12 AM Stop: 7:12 AM Medication: Fentanyl Amount: 25 mcg Route: I.V. Start: 7:14 AM Stop: 7:14 AM Medication: Nitrogylcerin Amount: 200 mcg Route: I.A. Start: 7:20 AM Stop: 7:20 AM Medication: Versed Amount: 1 mg Route: I.V. Start: 7:17 AM Stop: 7:17 AM Medication: Heparin Amount: 5000 units Route: I.V. Start: 7:23 AM Stop: 7:23 AM Medication: Fentanyl Amount: 25 mcg Route: I.V. I, the attending physician, have reviewed and verified all procedure medications. Yes, all medications given per verbal order History/Risk Factors Hypertension: Yes Dyslipidemia: No Peripheral Arterial Disease (PAD): No Myocardial Infarction (UT): Yes Obesity: Yes Prior Interventions PCI: Yes Valve Surgery: No Report Signatures Finalized by Dr. Baldo Brown MD on 11/21/2022 07:46 AM
[2022-11-21] MEDS: diphenhydrAMINE 50 mg Capsule PO (06:25)
[2022-11-21 06:36] LABS: Basophils # 0.1 10^3/uL (0.0-0.1); Basophils % 0.9 %; Eosinophils # 0.2 10^3/uL (0.0-0.8); Eosinophils % 2.5 %; Hematocrit 43.5 % (37.0-47.0); Hemoglobin 14.2 g/dL (11.5-15.3); Lymphocytes # 3.5 10^3/uL (0.8-4.8); Lymphocytes % 36.8 %; Mean Corpuscular HGB Conc 32.6 g/dL (30.0-36.0); Mean Corpuscular Hemoglobin 29.2 pg (28.0-34.0); Mean Corpuscular Volume 89.5 fl (81-99); Mean Platelet Volume 10.9 fL (7.4-10.4); Monocytes # 0.7 10^3/uL (0.2-0.9); Monocytes % 7.3 %; Neutrophils # 4.94 10^3/uL (1.8-7.7); Neutrophils % 52.1 %; Nucleated Red Blood Cells % 0 %; Platelet Count 305 10^3/cmm (130-400); Red Blood Count 4.86 10^6/uL (4.1-5.3); Red Cell Distribution Width 13.7 % (12.1-15.1); White Blood Count 9.5 10^3/uL (4.0-10.0)
--- NOTE | 2022-11-21 06:43 | PM.HP ---
Providers/Chief Complaint Admitting Physician: ebony Primary Care Provider: Reny Celis MD Chief Complaint: 125.10 History of Present Illness Danae Blas is a 62 year old female who presents for cardiac catheterization today. I saw her as an emergency add-on patient on September 11 when she requested to be seen for shortness of breath, dizziness, chest pain and headaches. She has a history of coronary disease with prior DC and prior stents. Her last angiogram was in 2020. At that time her stents were patent and she had nonobstructive lesions elsewhere. When I saw her on the I was not suspicious of unstable angina and gave her the choice between catheterization and stress testing. She wanted to discuss it with her family and call us back. She apparently called back wanting to schedule an angiogram which was has been scheduled for today. In addition to coronary disease she has chronic headaches, chronic shortness of breath, chronic dizziness, diabetes, hypertension, diastolic heart failure and sarcoidosis. Review of Systems Narrative: Review of systems is positive in nearly every distribution. Medications/Allergies Home Medications Medication Instructions Recorded Confirmed Last Taken Type clopidogrel 75 mg tablet 75 mg PO DAILY 09/20/19 11/20/22 10/18/22 History metformin 1,000 mg tablet 1,000 mg PO BID 09/20/19 11/20/22 10/23/22 History omega-3 fatty acids 1,000 mg 1,000 mg PO DAILY 09/20/19 11/20/22 10/23/22 History capsule (Fish Oil Concentrate) pantoprazole 40 mg tablet,delayed 40 mg PO DAILY 09/20/19 11/20/22 10/23/22 History release gabapentin 100 mg capsule 200 mg PO BEDTIME 10/27/19 11/20/22 10/23/22 History cholecalciferol (vitamin D3) 25 25 mcg PO DAILY 07/13/20 11/20/22 10/23/22 History mcg (1,000 unit) capsule albuterol sulfate 90 mcg/actuation 2 puff inhalation Q6H PRN 08/22/20 11/20/22 10/23/22 History aerosol inhaler (ProAir HFA) Shortness Of Breath mecobalamin (vitamin B12) 1,000 1,000 mcg PO DAILY 12/14/20 11/20/22 10/23/22 History mcg chewable tablet nitroglycerin 0.4 mg sublingual 0.4 mg sublingual Q5M PRN chest 02/11/21 11/20/22 10/23/22 Rx tablet (Nitrostat) pain #25 tabs amlodipine 5 mg tablet 5 mg PO DAILY 08/28/21 11/20/22 10/23/22 History potassium chloride 10 mEq 10 meq PO EVERY OTHER DAY #90 tabs 08/28/21 11/20/22 10/23/22 Rx tablet,extended release zinc 50 mg tablet 50 mg PO DAILY 09/27/21 11/20/22 10/23/22 History furosemide 20 mg tablet 20 mg PO DAILY 10/16/21 11/20/22 10/23/22 History ascorbic acid (vitamin C) 500 mg 500 mg PO DAILY 09/11/22 11/20/22 10/23/22 History capsule escitalopram oxalate 10 mg tablet 10 mg PO DAILY 09/11/22 11/20/22 10/23/22 History Bone growth stimulator. #1 ea 10/07/22 11/20/22 Unknown Rx cam boot right foot #1 ea 11/06/22 11/20/22 Unknown Rx hydrocodone 7.5 mg-acetaminophen 1 tab PO Q6H PRN pain 7 days #28 11/14/22 11/20/22 Unknown Rx 325 mg tablet tabs Allergies Allergy/AdvReac Type Severity Reaction Status Date / Time Sulfa (Sulfonamide Allergy Unknown break out Verified 11/20/22 15:10 Antibiotics) and has trouble breathing PFSH Acute PFSH: Medical History (Updated 11/21/22 @ 06:48 by Baldo Brown MD) ASHD (arteriosclerotic heart disease) Chest pain Chronic migraine Diabetes mellitus Diastolic heart failure Gait instability History of 2019 novel coronavirus disease (COVID-19) History of DC (myocardial infarction) HTN (hypertension) Near syncope Opioid contract exists Pulmonary sarcoidosis Sarcoidosis Shortness of breath Surgical History History of elbow surgery History of heart artery stent S/P carpal tunnel release S/P hysterectomy Family History Mother Bleeding disorder Father Diabetes Hyperlipidemia Hypertension Heart disease Brother Diabetes Hypertension Sister Hypertension Thyroid disease Family/Other Breast cancer maternal and paternal aunt Colon cancer paternal uncles Prostate cancer paternal uncle Denies family history of Cervical cancer Ovarian cancer Uterine cancer Stroke Social History Smoking and tobacco status: never smoked Substance/Drug Use: never Do you think of yourself as: Straight/Heterosexual Physical Exam Narrative: GENERAL: In general she appears comfortable at rest HEENT: Exam within normal limits. NECK: Supple without jugular vein distention. The carotid upstroke is normal without bruits. BACK: Exam normal. LUNGS: Clear. HEART: Regular rate and rhythm. ABDOMEN: Benign without organomegaly or tenderness. EXTREMITIES: No edema. NEUROLOGIC: Exam normal. SKIN: Unremarkable. Data 11/21/22 06:26 11/21/22 06:26 A&P Assessment and plan (1) Pulmonary sarcoidosis: (2) Diabetes mellitus: (3) HTN (hypertension): Qualifiers: Hypertension type: essential hypertension Qualified Code(s): I10 - Essential (primary) hypertension (4) Shortness of breath: (5) Headache: (6) ASHD (arteriosclerotic heart disease): (7) Chest pain: Plan Coronary angiography today as an outpatient Attestations Medical Necessity Statement*: Outpatient in a bed scheduled for coronary angiography and Straight Forward/Low Time for a total of 25 minutes, includes reviewing past or interval history, examining/interviewing patient, placing orders, counseling patient/family/other support, updating patient/family/other support, discussing plan of care with staff, communicating with other healthcare providers, documenting encounter and coordinating care Diagnoses Pulmonary sarcoidosis D86.0 Diabetes mellitus E11.9 HTN (hypertension) I10 Hypertension type: essential hypertension Shortness of breath R06.02 Headache R51.9 ASHD (arteriosclerotic heart disease) I25.10 Chest pain R07.9
[2022-11-21 06:45] LABS: Glucose Point of Care 178 mg/dL (70-110)
[2022-11-21 06:57] LABS: Anion Gap 16.2 (5-19); Blood Urea Nitrogen 12 mg/dL (8-23); Calcium 10.1 mg/dL (8.5-10.5); Carbon Dioxide 32 mmol/L (22-29); Chloride 92 mmol/L (98-107); Glomerular Filtration Rate 84.5 mL/min (90-130); Glucose 186 mg/dL (65-115); Osmolality Calculated 289 mOsm/kg (285-295); Potassium 3.2 mmol/L (3.5-5.1); Sodium 137 mmol/L (136-145)
--- NOTE | 2022-11-21 07:30 | SUR.PHASEII ---
Recieved the patient back from the laboratory technologist s/p diagnostic C via stretcher. Patient drowsy, but awakens to verbal stimuli easily. A & O x 3. TR band intact to the right wrist. Palpable radial pulse. monitor and storage bin tender placed and vital signs obtained. No other assessment changes noted from pre cath assessment. Son at bedside. Plan for DC home later this AM.
--- NOTE | 2022-11-21 07:53 | P.DS_ITS ---
Discharge Providers Date of Admission: November 21, 2022 Date of Discharge: November 21, 2022 Attending Provider at Admission: ebony Attending Provider at Discharge: Baldo Brown MD Primary Care Provider: Reny Celis MD Diagnoses at Discharge Discharge Diagnosis (1) Pulmonary sarcoidosis: Status: Acute (2) Diabetes mellitus: Status: Acute (3) HTN (hypertension): Status: Acute Qualifiers: Hypertension type: essential hypertension Qualified Code(s): I10 - Essential (primary) hypertension (4) Shortness of breath: Status: Acute (5) Headache: Status: Acute (6) ASHD (arteriosclerotic heart disease): Status: Acute (7) Chest pain: Status: Acute Reason for Visit Reason for Visit: 125.10 Brief History: Patient with chronic sarcoidosis and history of coronary artery disease with previous stents was seen in the office in August with dizziness, shortness of breath, chest pain and headache. She requested coronary angiography. She was admitted for this purpose today. Hospital Course Hospital Course Angiography was performed from the right radial artery. Previously placed LAD and right coronary artery stents are patent with minimal in-stent restenosis. The left main, circumflex and LAD are essentially free of disease aside from mild luminal irregularities. The right coronary artery exhibits a 40% eccentric stenosis distally just prior to the stent. Then in the very small posterior descending artery there is a 60 to 70% discrete stenosis. This vessel subtends very little myocardium and is too small to intervene upon. At the completion of the procedure and prior to discharge the right radial artery area is flat, dry a nd without bleeding or hematoma. Physical Exam Narrative: GENERAL: In general she is comfortable at rest HEENT: Exam within normal limits. NECK: Supple without jugular vein distention. The carotid upstroke is normal without bruits. BACK: Exam normal. LUNGS: Clear. HEART: Regular rate and rhythm. ABDOMEN: Benign without organomegaly or tenderness. EXTREMITIES: No edema. At the time of discharge the right radial artery area is flat, dry without bleeding or hematoma. NEUROLOGIC: Exam normal. SKIN: Unremarkable. 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 Routine Exams 11/21/22 06:00 Completed Laboratory Results WBC 9.5 10^3/uL (4.0-10.0) 11/21/22 06:26 RBC 4.86 10^6/uL (4.1-5.3) 11/21/22 06:26 Hgb 14.2 g/dL (11.5-15.3) 11/21/22 06:26 Hct 43.5 % (37.0-47.0) 11/21/22 06:26 MCV 89.5 fl (81-99) 11/21/22 06:26 MCH 29.2 pg (28.0-34.0) 11/21/22 06:26 MCHC 32.6 g/dL (30.0-36.0) 11/21/22 06:26 RDW 13.7 % (12.1-15.1) 11/21/22 06:26 Plt Count 305 10^3/cmm (130-400) 11/21/22 06:26 MPV 10.9 fL (7.4-10.4) H 11/21/22 06:26 Neut % (Auto) 52.1 % 11/21/22 06:26 Lymph % (Auto) 36.8 % 11/21/22 06:26 Davis % (Auto) 7.3 % 11/21/22 06:26 Eos % (Auto) 2.5 % 11/21/22 06:26 Baso % (Auto) 0.9 % 11/21/22 06:26 Neut # (Auto) 4.94 10^3/uL (1.8-7.7) 11/21/22 06:26 Lymph # (Auto) 3.5 10^3/uL (0.8-4.8) 11/21/22 06:26 Davis # (Auto) 0.7 10^3/uL (0.2-0.9) 11/21/22 06:26 Eos # (Auto) 0.2 10^3/uL (0.0-0.8) 11/21/22 06:26 Baso # (Auto) 0.1 10^3/uL (0.0-0.1) 11/21/22 06:26 Nucleated RBC % (auto) 0 % 11/21/22 06:26 Nucleated RBCs # 0.0 /100WBC 11/21/22 06:26 Sodium 137 mmol/L (136-145) 11/21/22 06:26 Potassium 3.2 mmol/L (3.5-5.1) L 11/21/22 06:26 Chloride 92 mmol/L (98-107) L 11/21/22 06:26 Carbon Dioxide 32 mmol/L (22-29) H 11/21/22 06:26 Anion Gap 16.2 (5-19) 11/21/22 06:26 BUN 12 mg/dL (8-23) 11/21/22 06:26 Creatinine 0.7 mg/dL (0.5-0.9) 11/21/22 06:26 GFR Calculation 84.5 mL/min (90-130) L 11/21/22 06:26 Glucose 186 mg/dL (65-115) H 11/21/22 06:26 POC Glucose 178 mg/dL (70-110) H 11/21/22 06:28 Calculated Osmolality 289 mOsm/kg (285-295) 11/21/22 06:26 Calcium 10.1 mg/dL (8.5-10.5) 11/21/22 06:26 Procedures Performed Coronary angiography Vitals Last Vital Signs Temp 98 F 11/21/22 07:01 Pulse 88 11/21/22 07:01 Resp 12 11/21/22 07:01 BP 131/98 11/21/22 07:01 O2 Del Method Room Air 11/21/22 07:01 Discharge Plan Discharge Prescriptions: Continued clopidogrel 75 mg tablet 75 mg PO DAILY pantoprazole 40 mg tablet,delayed release (DR/EC) 40 mg PO DAILY metformin 1,000 mg tablet 1,000 mg PO BID omega-3 fatty acids [Fish Oil Concentrate] 1,000 mg capsule 1,000 mg PO DAILY gabapentin 100 mg capsule 200 mg PO BEDTIME albuterol sulfate [ProAir HFA] 90 mcg/actuation HFA aerosol inhaler 2 puff inhalation Q6H PRN (Reason: Shortness Of Breath) cholecalciferol (vitamin D3) 25 mcg (1,000 unit) capsule 25 mcg PO DAILY mecobalamin (vitamin B12) 1,000 mcg tablet,chewable 1,000 mcg PO DAILY amlodipine 5 mg tablet 5 mg PO DAILY potassium chloride 10 mEq tablet extended release 10 meq PO EVERY OTHER DAY Qty: 90 2RF escitalopram oxalate 10 mg tablet 10 mg PO DAILY ascorbic acid (vitamin C) 500 mg capsule 500 mg PO DAILY (DME) cam boot right foot See Rx Instructions .Route .MEDSUPPLY Qty: 1 0RF Rx Instructions: As directed zinc 50 mg tablet 50 mg PO DAILY furosemide 20 mg tablet 20 mg PO DAILY hydrocodone-acetaminophen 7.5-325 mg tablet 1 tab PO Q6H PRN (Reason: pain) 7 Days Qty: 28 0RF nitroglycerin [Nitrostat] 0.4 mg tablet, sublingual 0.4 mg sublingual Q5M PRN (Reason: chest pain) Qty: 25 3RF Rx Instructions: do not exceed 3 doses per episode (DME) Bone growth stimulator. See Rx Instructions .Route .MEDSUPPLY Qty: 1 0RF Rx Instructions: As directed Ozempic 0.25 mg or 0.5 mg (2 mg/3 mL) pen injector SUBCUT Discharge Orders: Discharge Order (Routine); Ordered 11/21/22 Ordered By: Baldo Brown Referrals: Windy Saucedo FNP [Nurse Practitioner] - 7-10 days (Check right radial artery site and chemistry panel.) Diet: Diabetic Activity: Limit activity as instructed Patient Instructions: Moderate Sedation (DC), After Radial Heart Catheterization (GEN) Activity Restrictions/Additional Instructions: No lifting over 5 pounds for 2 days with the right arm. Hold metformin for 2 days. Start metformin again on Thursday. Discharge Attestations Time Spent in Discharge Care*: greater than 30 min Status at Discharge: Cognitive status at discharge: cognitively intact , Behavioral status at discharge: cooperative , Quality Metrics Clinical Quality Measures [ No reported AMI, CVA or VTE this stay] Coding Level of Care Code 15479 Total time (in minutes) for Discharge: 35 Diagnoses Pulmonary sarcoidosis D86.0 Diabetes mellitus E11.9 HTN (hypertension) I10 Hypertension type: essential hypertension Shortness of breath R06.02 Headache R51.9 ASHD (arteriosclerotic heart disease) I25.10 Chest pain R07.9
--- NOTE | 2022-11-21 08:30 | SUR.PHASEII ---
Letting the air out of the TR band per protocol. No other changes noted at this time. Son remains at bedside.
--- NOTE | 2022-11-21 09:30 | SUR.PHASEII ---
TR band off per protocol. Site cleansed with warm water and patted dry. A large band aide was applied to the site and loosely secured with coban. Activity restrictions explained to the patient and their son with their understanding voiced. No bleeding or hematoma noted. Palpable radial pulse. No other changes noted. Plan for DC home at 1030.
== END 2022-11-21 06:13 | disposition home or self-care (01) ==
PROVIDERS: PCP Internal Medicine; Visit Provider Internal Medicine Cardiovascular Disease
DX: I25.10 Atherosclerotic heart disease of native coronary artery without angina pectoris (principal); D86.0 Sarcoidosis of lung; I10 Essential (primary) hypertension; E11.9 Type 2 diabetes mellitus without complications; R42 Dizziness and giddiness; R51.9 Headache, unspecified; R07.9 Chest pain, unspecified; E66.01 Morbid (severe) obesity due to excess calories; Z68.45 Body mass index [BMI] 70 or greater, adult
CPT/HCPCS: 36415; 36416; 80048; 82962; 85025; 93454; 96365; 99152; C1769; C1887; C1894; J1644; J2250; J3010; J3490; J7030; Q0163; Q9967

== ENCOUNTER → 2022-12-04 15:21 | Outpatient (BNVA) | payer MEDICARE, SELFPAY | PROVIDERS: PCP Internal Medicine; Visit Provider Podiatrist Foot & Ankle Surgery | DX: Z98.890 Other specified postprocedural states (principal); S82.851D Displaced trimalleolar fracture of right lower leg, subsequent encounter for closed fracture with routine healing; X58.XXXD Exposure to other specified factors, subsequent encounter | CPT/HCPCS: 73610; 99024 ==

== ENCOUNTER → 2022-12-08 15:08 | Outpatient (BNVA) | payer MEDICARE, SELFPAY | PROVIDERS: PCP Internal Medicine; Visit Provider Podiatrist Foot & Ankle Surgery | DX: Z98.890 Other specified postprocedural states (principal); S82.851D Displaced trimalleolar fracture of right lower leg, subsequent encounter for closed fracture with routine healing; L97.322 Non-pressure chronic ulcer of left ankle with fat layer exposed; W01.0XXD Fall on same level from slipping, tripping and stumbling without subsequent striking against object, subsequent encounter; Y92.828 Other wilderness area as the place of occurrence of the external cause | CPT/HCPCS: 97597; 99024; 99213 ==

== ENCOUNTER → 2022-12-18 14:26 | Outpatient (BNVA) | payer MEDICARE, SELFPAY | PROVIDERS: PCP Internal Medicine; Visit Provider Podiatrist Foot & Ankle Surgery | DX: S82.851D Displaced trimalleolar fracture of right lower leg, subsequent encounter for closed fracture with routine healing; X58.XXXD Exposure to other specified factors, subsequent encounter; L97.322 Non-pressure chronic ulcer of left ankle with fat layer exposed | CPT/HCPCS: 73610; 99024 ==

== ENCOUNTER → 2023-01-01 13:43 | Outpatient (BNVA) | payer MEDICARE, SELFPAY | PROVIDERS: PCP Internal Medicine; Visit Provider Podiatrist Foot & Ankle Surgery | DX: M72.2 Plantar fascial fibromatosis; L97.322 Non-pressure chronic ulcer of left ankle with fat layer exposed; S82.851D Displaced trimalleolar fracture of right lower leg, subsequent encounter for closed fracture with routine healing; X58.XXXD Exposure to other specified factors, subsequent encounter | CPT/HCPCS: 20550; 73610; 99024; J1100; J3301; J3490 ==

== ENCOUNTER → 2023-01-14 09:07 | Outpatient (BNVA) | payer MEDICARE, SELFPAY | PROVIDERS: PCP Internal Medicine; Visit Provider Podiatrist Foot & Ankle Surgery | DX: L97.322 Non-pressure chronic ulcer of left ankle with fat layer exposed; Z98.890 Other specified postprocedural states; S82.851D Displaced trimalleolar fracture of right lower leg, subsequent encounter for closed fracture with routine healing; X58.XXXD Exposure to other specified factors, subsequent encounter; M72.2 Plantar fascial fibromatosis | CPT/HCPCS: 11042; 73610 ==

== ENCOUNTER → 2023-01-29 14:38 | Outpatient (BNVA) | payer MEDICARE, SELFPAY | PROVIDERS: PCP Internal Medicine; Visit Provider Podiatrist Foot & Ankle Surgery | DX: Z98.890 Other specified postprocedural states (principal); S82.851D Displaced trimalleolar fracture of right lower leg, subsequent encounter for closed fracture with routine healing; L97.322 Non-pressure chronic ulcer of left ankle with fat layer exposed; X58.XXXD Exposure to other specified factors, subsequent encounter | CPT/HCPCS: 99213 ==

== ENCOUNTER → 2023-02-12 14:05 | Outpatient (BNVA) | payer MEDICARE, SELFPAY | PROVIDERS: PCP Internal Medicine; Visit Provider Podiatrist Foot & Ankle Surgery | DX: Z98.890 Other specified postprocedural states (principal); S82.851D Displaced trimalleolar fracture of right lower leg, subsequent encounter for closed fracture with routine healing; L97.322 Non-pressure chronic ulcer of left ankle with fat layer exposed; X58.XXXD Exposure to other specified factors, subsequent encounter | CPT/HCPCS: 99213 ==

== ENCOUNTER → 2023-02-26 07:24 | Outpatient (BNVA) | payer MEDICARE, SELFPAY | PROVIDERS: PCP Internal Medicine; Visit Provider Podiatrist Foot & Ankle Surgery | DX: S82.851D Displaced trimalleolar fracture of right lower leg, subsequent encounter for closed fracture with routine healing; X58.XXXD Exposure to other specified factors, subsequent encounter; L97.322 Non-pressure chronic ulcer of left ankle with fat layer exposed; S92.501A Displaced unspecified fracture of right lesser toe(s), initial encounter for closed fracture; W22.03XA Walked into furniture, initial encounter | CPT/HCPCS: 73610; 73630; 99213 ==

== ENCOUNTER 2023-03-05 12:32 | Outpatient (CLI) | payer MEDICARE, SELFPAY ==
--- NOTE | 2023-03-05 12:42 | XR_ITS ---
WS: [id number] SCREENING DEXA SCAN [employer] CLINICAL INFORMATION: OSTEOPENIA W/HIGH FX RISK COMPARISON: 2020 FINDINGS: The L1-L4 bone mineral density measures 1.088 g/cm2. This corresponds to a T score score of -0.8 and Z score of -0.2. Left femoral neck bone mineral density measures 0.813 g/cm2. This corresponds to a T score of -1.5 an d Z score of -1.1. Right femoral neck bone mineral density measures 0.832 g/cm2. This corresponds to a T score -1.4of an d Z score of -1.0. Mean femoral neck bone mineral density measures 0.823 g/cm2. This corresponds to a T score of -1.5 an d Z score of -1.0. IMPRESSION: Normal bone mineralization lumbar spine. Osteopenia femoral necks. Patient's FRAX calculated 10 year probability for major osteoporotic fracture is 15.1% and osteoporot ic hip fracture is 2.0%. Bone mineral density lumbar spine decreased -4.5% Bone mineral density femoral necks decreased -4.7%
== END 2023-03-05 12:33 | disposition home or self-care (01) ==
LOC: RAD 12:33
PROVIDERS: PCP Internal Medicine; Visit Provider Internal Medicine
DX: M81.0 Age-related osteoporosis without current pathological fracture (principal)
CPT/HCPCS: 77080

== ENCOUNTER → 2023-03-30 11:07 | Outpatient (BNVA) | payer MEDICARE, SELFPAY | PROVIDERS: PCP Internal Medicine; Visit Provider Podiatrist Foot & Ankle Surgery | DX: Z98.890 Other specified postprocedural states; S82.851D Displaced trimalleolar fracture of right lower leg, subsequent encounter for closed fracture with routine healing; S92.501D Displaced unspecified fracture of right lesser toe(s), subsequent encounter for fracture with routine healing; L97.322 Non-pressure chronic ulcer of left ankle with fat layer exposed; Z79.84 Long term (current) use of oral hypoglycemic drugs; X58.XXXD Exposure to other specified factors, subsequent encounter | CPT/HCPCS: 73610; 73620; 99213 ==

== ENCOUNTER → 2023-04-06 08:04 | Outpatient (BNVA) | payer MEDICARE, SELFPAY | PROVIDERS: PCP Internal Medicine; Visit Provider Nurse Practitioner Family | DX: L82.1 Other seborrheic keratosis (principal); L57.8 Other skin changes due to chronic exposure to nonionizing radiation; D22.5 Melanocytic nevi of trunk; L81.4 Other melanin hyperpigmentation; C44.41 Basal cell carcinoma of skin of scalp and neck | CPT/HCPCS: 11102; 99213 ==

== ENCOUNTER 2023-06-12 14:54 | Outpatient (CLI) | payer MEDICARE, SELFPAY ==
--- NOTE | 2023-06-12 15:01 | XR_ITS ---
WS: [id number] XR chest 2V* [id number] REASON FOR EXAM: ACUTE COUGH FINDINGS: Chest is unchanged compared to 05/24/2021. Mild tortuosity of the thoracic aorta. Multiple calcified lymph nodes in the hilum and mediastinum. Multiple large calcified granulomas in t he right lung base. No acute or subacute pulmonary parenchymal or pleural disease is noted. Mild changes of degenerative spondylosis in the mid and lower thoracic spine. IMPRESSION: Stable chest without acute abnormality.
== END 2023-06-12 14:55 | disposition home or self-care (01) ==
LOC: RAD 14:57
PROVIDERS: PCP Internal Medicine; Visit Provider Nurse Practitioner Family
DX: R05.1 Acute cough (principal)
CPT/HCPCS: 71046

== ENCOUNTER → 2023-07-15 09:01 | Outpatient (BNVA) | payer MEDICARE, SELFPAY | PROVIDERS: PCP Internal Medicine; Visit Provider Podiatrist Foot & Ankle Surgery | DX: S82.851D Displaced trimalleolar fracture of right lower leg, subsequent encounter for closed fracture with routine healing (principal); S92.501D Displaced unspecified fracture of right lesser toe(s), subsequent encounter for fracture with routine healing; L97.322 Non-pressure chronic ulcer of left ankle with fat layer exposed; X58.XXXD Exposure to other specified factors, subsequent encounter | CPT/HCPCS: 73610; 99213 ==

== ENCOUNTER → 2023-08-20 10:20 | Outpatient (BNVA) | payer MEDICARE, SELFPAY | PROVIDERS: PCP Internal Medicine; Visit Provider Podiatrist Foot & Ankle Surgery | DX: S82.851D Displaced trimalleolar fracture of right lower leg, subsequent encounter for closed fracture with routine healing (principal); X58.XXXD Exposure to other specified factors, subsequent encounter; M65.9 Synovitis and tenosynovitis, unspecified | CPT/HCPCS: 73610; 99213 ==

== ENCOUNTER 2023-09-11 09:27 | Outpatient (CLI) | payer MEDICARE, SELFPAY ==
--- NOTE | 2023-09-11 10:33 | MM_ITS ---
WS: [id number] BILATERAL SCREENING DIGITAL TOMOSYNTHESIS MAMMOGRAM WITH CAD HISTORY: SCREENING COMPARISON: 04/14/2022, 04/09/2021 Bilateral CC and MLO views with tomosynthesis and synthetic mammography submitted. Computer aided det ection analyzed. Breast composition: There are scattered areas of fibroglandular density. No suspicious masses, microc alcifications or architectural distortion. Numerous bilateral benign calcifications in each breast. IMPRESSION: MM/[place] [id number] BI-RADS: 2-Benign FOLLOW UP: 1 Year Follow-up
== END 2023-09-11 09:28 | disposition home or self-care (01) ==
LOC: RAD 09:28
PROVIDERS: PCP Internal Medicine; Visit Provider Internal Medicine
DX: Z12.31 Encounter for screening mammogram for malignant neoplasm of breast (principal); R92.323 Mammographic fibroglandular density, bilateral breasts
CPT/HCPCS: 77063; 77067; 99213

== ENCOUNTER → 2023-11-30 13:35 | Outpatient (BNVA) | payer SELFPAY | PROVIDERS: PCP Internal Medicine; Visit Provider Specialist | DX: S42.211G Unspecified displaced fracture of surgical neck of right humerus, subsequent encounter for fracture with delayed healing (principal); X58.XXXD Exposure to other specified factors, subsequent encounter | CPT/HCPCS: 73030 ==

== ENCOUNTER → 2024-06-13 14:38 | Outpatient (BNVA) | payer MEDICARE, OTHER, SELFPAY | PROVIDERS: PCP Internal Medicine; Visit Provider Nurse Practitioner Family | DX: L72.0 Epidermal cyst (principal); L81.4 Other melanin hyperpigmentation; L57.8 Other skin changes due to chronic exposure to nonionizing radiation; D22.39 Melanocytic nevi of other parts of face; Z08 Encounter for follow-up examination after completed treatment for malignant neoplasm; Z85.820 Personal history of malignant melanoma of skin; L82.0 Inflamed seborrheic keratosis; L29.89 Other pruritus; R58 Hemorrhage, not elsewhere classified; R20.8 Other disturbances of skin sensation; L53.8 Other specified erythematous conditions | CPT/HCPCS: 17110; 99213 ==

== ENCOUNTER 2024-08-11 10:33 | Outpatient (CLI) | payer MEDICARE, SELFPAY ==
--- NOTE | 2024-08-11 10:39 | XR_ITS ---
WS: [id number] Exam: XR chest 2V* [id number] Date/Time of Exam: 08/11/2024 10:45 AM Reason For Exam: POSTVIRAL COUGH Comparison 06/12/2023. The lungs are fully expanded and clear. Heart size is normal. The mediastinum is normal in contour. Multiple mediastinal and hilar calcified lymph nodes identified. Scattered calcified granulomas in both lungs. Bony structures are intact. XR/XR chest 2V* [id number] IMPRESSION: 1. No acute cardiopulmonary finding. Additional chronic findings as above.
== END 2024-08-11 10:34 | disposition home or self-care (01) ==
PROVIDERS: PCP Internal Medicine; Visit Provider Nurse Practitioner Family
DX: R05.3 Chronic cough (principal); R59.0 Localized enlarged lymph nodes; J84.10 Pulmonary fibrosis, unspecified
CPT/HCPCS: 71046

== ENCOUNTER → 2024-09-12 09:37 | Outpatient (BNVA) | payer MEDICARE, SELFPAY | PROVIDERS: PCP Internal Medicine; Visit Provider Podiatrist Foot & Ankle Surgery | DX: M25.571 Pain in right ankle and joints of right foot (principal); E11.9 Type 2 diabetes mellitus without complications; T84.84XA Pain due to internal orthopedic prosthetic devices, implants and grafts, initial encounter; X58.XXXA Exposure to other specified factors, initial encounter | CPT/HCPCS: 73610; 99213 ==

== ENCOUNTER 2024-09-12 14:47 | Outpatient (CLI) | payer MEDICARE, SELFPAY ==
--- NOTE | 2024-09-12 15:16 | XRR_ITS ---
PROCEDURE INFORMATION: Exam: XR Right Knee Exam date and time: 09/12/2024 3:22 PM Age: 64 years old Clinical indication: Pain; Knee; Right; Additional info: Pain in right knee TECHNIQUE: Imaging protocol: Radiologic exam of the right knee. Views: 3 views. COMPARISON: CR XR ankle RT min 3V* [id number] 09/12/2024 9:46 AM FINDINGS: Bones/joints: Normal. Soft tissues: Normal. XR/XR knee RT 4V [id number] IMPRESSION: No acute findings.
== END 2024-09-12 14:48 | disposition home or self-care (01) ==
PROVIDERS: PCP Internal Medicine; Visit Provider Internal Medicine
DX: M25.561 Pain in right knee (principal)
CPT/HCPCS: 73564

== ENCOUNTER 2024-09-30 12:34 | Outpatient (CLI) | payer MEDICARE, SELFPAY ==
--- NOTE | 2024-09-30 12:38 | MM_ITS ---
WS: [id number] BILATERAL 3D TOMOSYNTHESIS DIGITAL SCREENING MAMMOGRAPHY WITH CAD CLINICAL INFORMATION: SCREENING HISTORY: Screening mammogram. No current complaints. COMPARISON: 2023 TECHNIQUE: Bilateral CC and MLO views. FINDINGS: Scattered fibroglandular densities bilaterally. No suspicious focal mass, asymmetry, calcifications, or architectural distortion. No evidence of malignancy. Punctate and lucent centered calcifications. MM/MM scr BI tomosynthesis [id number] IMPRESSION: DENSITY: There are scattered areas of fibroglandular density. BI-RADS: 2 - Benign. FOLLOW UP: 1 Year Follow-up Recommend return to annual screening mammography.
== END 2024-09-30 12:35 | disposition home or self-care (01) ==
PROVIDERS: PCP Internal Medicine; Visit Provider Internal Medicine
DX: Z12.31 Encounter for screening mammogram for malignant neoplasm of breast (principal); R92.323 Mammographic fibroglandular density, bilateral breasts; R92.1 Mammographic calcification found on diagnostic imaging of breast
CPT/HCPCS: 77063; 77067

== ENCOUNTER 2024-10-04 14:19 | Outpatient (CLI) | payer MEDICARE, SELFPAY ==
--- NOTE | 2024-10-04 14:27 | XRR_ITS ---
PROCEDURE INFORMATION: Exam: XR Right Hand Exam date and time: 10/04/2024 3:00 PM Age: 64 years old Clinical indication: Injury or trauma; Blunt trauma (contusions or hematomas); Injury date: 2 weeks ago; Injury details: Right hand pain and swelling x 2 wks after injuring hand on cabinet; HX of cervical cancer; Additional info: Pain in joints of R hand TECHNIQUE: Imaging protocol: Radiologic exam of the right hand. Views: 3 or more views. COMPARISON: CR XR forearm RT 2V [id number] 08/21/2021 12:45 PM FINDINGS: Bones/joints: [id number] DJD of the 2nd through 5th DIP joint spaces most significant at the 4th DIP joint space. Mild DJD of the base of the thumb. Mild DJD at the radiocarpal joint space. No evidence of fracture. Soft tissues: Normal. XR/XR hand RT min 3V* [id number] IMPRESSION: No acute findings. Degenerative changes of the right hand as described in the body report.
== END 2024-10-04 14:20 | disposition home or self-care (01) ==
PROVIDERS: PCP Internal Medicine; Visit Provider Nurse Practitioner Family
DX: M19.041 Primary osteoarthritis, right hand (principal); M18.9 Osteoarthritis of first carpometacarpal joint, unspecified; M19.031 Primary osteoarthritis, right wrist
CPT/HCPCS: 73130

== ENCOUNTER 2024-11-25 07:41 | Day surgery (SDC) | payer MEDICARE, SELFPAY ==
[2024-11-25] VITALS (16 sets, daily range): BP systolic 108–169; BP diastolic 66–89; PULSE 70–81; RESP 16–17; TEMP 36.1–36.4; O2SAT 93–97; BMI 39.3
--- NOTE | 2024-11-25 08:31 | PM.OPSURHP ---
Providers/Chief Complaint Primary Care Provider: Reny Celis MD Chief Complaint: T84.84XA History of Present Illness Danae Blas is a 64 year old female presenting to clinic for evaluation of right ankle pain. Patient complains of something shifting and pinching the inside of her ankle. Majority of pain is coming from lateral right ankle, at times she experiences pain at the medial side as well. Patient denies any subjective nausea, vomiting, fever, chills, shortness of breath or chest pain. Review of Systems General: Reports: 10 or more systems reviewed and unremarkable except in HPI and below Const: Denies: fever(s) or chills Eyes: Denies: change in vision Card: Denies: chest pain or palpitations Resp: Denies: dyspnea or productive cough GI: Denies: abdominal pain, nausea or vomiting : Denies: flank pain Musc: Reports: extremity pain, joint pain, joint stiffness, limited range of motion and deformity Skin/Breast: Reports: skin tenderness; Denies: rash Neuro: Reports: difficulty walking; Denies: numbness in extremities, sensory changes or frequent falls Psych: Denies: suicidal ideation Cheikh/Lymph: Denies: easy bruising Medications/Allergies Home Medications ?Medication ?Instructions ?Recorded ?Confirmed ?Last Taken ?Type clopidogrel 75 mg tablet 75 mg PO DAILY 09/20/19 11/24/24 11/19/24 History metformin 1,000 mg tablet 1,000 mg PO BID 09/20/19 11/25/24 11/24/24 History pantoprazole 40 mg tablet,delayed 40 mg PO DAILY 09/20/19 11/25/24 11/24/24 History release gabapentin 100 mg capsule 200 mg PO BEDTIME 10/27/19 11/25/24 11/24/24 History cholecalciferol (vitamin D3) 25 25 mcg PO DAILY 07/13/20 11/25/24 11/22/24 History mcg (1,000 unit) capsule albuterol sulfate 90 mcg/actuation 2 puff inhalation Q6H PRN 08/22/20 11/25/24 10/23/22 History aerosol inhaler (ProAir HFA) Shortness Of Breath mecobalamin (vitamin B12) 1,000 1,000 mcg PO DAILY 12/14/20 11/25/24 11/23/24 History mcg chewable tablet nitroglycerin 0.4 mg sublingual 0.4 mg sublingual Q5M PRN chest 02/11/21 11/25/24 10/23/22 Rx tablet (Nitrostat) pain #25 tabs amlodipine 5 mg tablet 5 mg PO DAILY 08/28/21 11/25/24 11/23/24 History potassium chloride 10 mEq 10 meq PO EVERY OTHER DAY #90 tabs 08/28/21 11/24/24 11/22/24 Rx tablet,extended release zinc 50 mg tablet 50 mg PO DAILY 09/27/21 11/24/24 10/25/24 History ascorbic acid (vitamin C) 500 mg 500 mg PO DAILY 09/11/22 11/25/24 11/23/24 History capsule escitalopram oxalate 10 mg tablet 10 mg PO DAILY 09/11/22 11/25/24 11/23/24 History Bone growth stimulator. #1 ea 10/07/22 09/12/24 Unknown Rx cam boot right foot #1 ea 11/06/22 09/12/24 Unknown Rx furosemide 20 mg tablet See Rx Instructions .Route 11/21/22 11/25/24 11/23/24 Rx .COMPLEX #180 tabs semaglutide 0.25 mg or 0.5 mg (2 0.25 mg SUBCUT DIRECTED 11/21/22 11/25/24 11/15/24 History mg/3 mL) subcutaneous pen injector (Ozempic) Allergies Allergy/AdvReac Type Severity Reaction Status Date / Time Sulfa (Sulfonamide Allergy Unknown break out Verified 11/25/24 07:55 Antibiotics) and has trouble breathing PFSH PFSH: Medical History (Updated 11/25/24 @ 09:05 by Chadd Hopkins DPM) Chest pain Opioid contract exists History of 2019 novel coronavirus disease (COVID-19) Gait instability Near syncope Pulmonary sarcoidosis Diabetes mellitus Chronic migraine Sarcoidosis Shortness of breath ASHD (arteriosclerotic heart disease) HTN (hypertension) Diastolic heart failure History of [place] (myocardial infarction) Surgical History S/P hysterectomy S/P carpal tunnel release History of elbow surgery History of heart artery stent Family History Mother Bleeding disorder Father Diabetes Hyperlipidemia Hypertension Heart disease Brother Diabetes Hypertension Sister Hypertension Thyroid disease Family/Other Breast cancer maternal and paternal aunt Colon cancer paternal uncles Prostate cancer paternal uncle Denies family history of Cervical cancer Ovarian cancer Uterine cancer Stroke Social History Smoking and tobacco/nicotine status: never used tobacco/nicotine Substance/Drug Use: never Do you think of yourself as: Straight/Heterosexual Dietary Habits: Caffeine: No Vital Signs Vitals Signs: Last Vital Signs Temp 97.6 F 11/25/24 08:02 Pulse 81 11/25/24 08:02 Resp 17 11/25/24 08:02 BP 169/81 11/25/24 08:02 Pulse Ox 97 11/25/24 08:02 O2 Del Method Room Air 11/25/24 08:02 Weight: Weight last 48 hrs Weight 215 lb Physical Exam Narrative: EXAM NARRATIVE: Patient is alert and oriented ?3 and in no acute distress. The following is a focused right lower extremity exam. VASCULAR: Dorsalis pedis and posterior tibial arteries palpable +2. Capillary refill time less than 3 seconds to the distal hallux bilaterally. Calf is supple and nontender proximally and distally. Mild edema at the operative site consistent with postoperative course. NEUROLOGICAL: Protective sensation intact to light touch. DERMATOLOGICAL: Lower extremity skin is well-hydrated, normal texture and turgor. There are no open sores or lesions noted to the lower extremities. No erythema or ecchymosis present to the bilateral legs and feet. MUSCULOSKELETAL:Tenderness at right syndesmosis. Muscle strength +5 in all 3 planes bilateral foot and ankle. No crepitus with range of motion right ankle. No pain to palpation of hardware at medial or lateral malleolus, right ankle. Dorsiflexion of right ankle is 10 degrees beyond neutral. CARDIOVASCULAR: S1, S2, normal rate, normal rhythm. Dorsalis pedis and posterior tibial arteries palpable. LUNGS: Clear to auscltation, no use of acessory muscles, no crackles or wheezes. A&P Assessment and plan 1. Chronic pain of right ankle: 2. Painful orthopaedic hardware: Plan: Syndesmotic screw has released in the tib-fib space radiographic signs of irritation hyperostosis this correlates to area of pain subjectively and clinically discussed syndesmotic screw removal scratch that the patient would like to proceed November 25, 2024. I reviewed at length with the patient, the risks, potential complications, benefits, alternatives, expectations, and typical outcomes associated with the surgery. The risks and potential complications were explained in detail, including but not limited to infection, wound dehiscence or soft tissue complications, bleeding and hematoma, chronic edema, neuritis or nerve damage producing numbness or chronic pain, CRPS, failure to relieve pain or worsening pain, thick / painful / unsightly scar, limited motion / stiffness, malposition, delayed union, malunion, or nonunion, fracture, reaction to implants, anesthetic complications, venous thromboembolism, and deformity recurrence. I discussed the notion of no regrets with the patient as it pertains to complications and outcomes. The patient seemed to understand the nature of the proposed care and required convalescence. They asked appropriate questions, answered to their satisfaction. They are aware no guarantees can be made as to a satisfactory outcome and they understand there may be other possible unforeseen complications or outcomes not listed here that will be treated accordingly if they arise. There were no written or implied guarantees given to the patient. They gave informed consent to proceed. Planning on syndesmotic screw removal right ankle November 25, 2024, local MAC, jose elias, supine, 20 minutes. PDMP PDMP Reviewed: Not Reviewed Coding Level of Care Code Acute Code for [facility] Fwd Diagnoses Chronic pain of right ankle M25.571; G89.29 Chronicity: chronic Painful orthopaedic hardware T84.84XA
--- NOTE | 2024-11-25 08:33 | W.PM.OPSUD ---
Surgery/Procedure H&P Update DATE OF PROCEDURE: November 25, 2024 DATE H&P PERFORMED: 11/25/24 H&P UPDATE INFORMATION: I have reviewed H&P completed within last 30 days, I have examined patient prior to procedure, No changes to prior documentation and Risks and benefits of the procedure reviewed PREOP DIAGNOSIS: Painful hardware right ankle PLANNED PROCEDURE: Operation Date: 11/25/24 09:35 Proposed Procedures p Hardware Removal RIGHT Ankle(Right) - Chadd Hopkins DPM
--- NOTE | 2024-11-25 08:36 | ANES.PREANE2 ---
Pre-Anesthetic Assessment Height/Weight: Height 5 ft 2 in Weight 215 lb Temp Pulse Resp BP Pulse Ox O2 Del Method 97.6 F 81 17 169/81 97 Room Air 11/25/24 08:02 11/25/24 08:02 11/25/24 08:02 11/25/24 08:02 11/25/24 08:02 11/25/24 08:02 Preop Diagnosis: Painful hardware right ankle Operation Date: 11/25/24 09:35 Proposed Procedures p Hardware Removal RIGHT Ankle(Right) - IZAIAH MolinaM Was Beta Alec taken within 24 hours: N/A Was Clonidine taken within 24 hours: N/A Last intake: Intake Last Liquid Date 11/24/24 Last Liquid Time 23:30 Last Solid Date 11/24/24 Last Solid Time 20:00 Social No alcohol and No tobacco Exam alert, oriented x 3, clear to auscultation bilaterally and regular rate & rhythm Airway Submandibular: within normal limits Cervical ROM: within normal limits Mallampati: Class II Dentition: full Anesthetic Plan ASA status: 3 Anesthesia: MAC Other: History of PONV, will give Zofran and plan on TIVA NPO since yesterday evening History of hypertension on amlodipine History of sarcoidosis, no lung problems in years however Type 2 diabetes on Ozempic, last taken 11/15/2024. Preop BS 251. Will give 3 units insulin and recheck GERD, controlled with Protonix [facility] 11/21/2024 reviewed acceptable for procedure, K+ 3.2 at that time. She runs chronically low Echo 2020 showing EF of 55 to 60% with no valve issues Plan for MAC anesthesia with local via surgeon Medications/Allergies Home Medications ?Medication ?Instructions ?Recorded ?Confirmed ?Last Taken ?Type clopidogrel 75 mg tablet 75 mg PO DAILY 09/20/19 11/24/24 11/19/24 History metformin 1,000 mg tablet 1,000 mg PO BID 09/20/19 11/25/24 11/24/24 History pantoprazole 40 mg tablet,delayed 40 mg PO DAILY 09/20/19 11/25/24 11/24/24 History release gabapentin 100 mg capsule 200 mg PO BEDTIME 10/27/19 11/25/24 11/24/24 History cholecalciferol (vitamin D3) 25 25 mcg PO DAILY 07/13/20 11/25/24 11/22/24 History mcg (1,000 unit) capsule albuterol sulfate 90 mcg/actuation 2 puff inhalation Q6H PRN 08/22/20 11/25/24 10/23/22 History aerosol inhaler (ProAir HFA) Shortness Of Breath mecobalamin (vitamin B12) 1,000 1,000 mcg PO DAILY 12/14/20 11/25/24 11/23/24 History mcg chewable tablet nitroglycerin 0.4 mg sublingual 0.4 mg sublingual Q5M PRN chest 02/11/21 11/25/24 10/23/22 Rx tablet (Nitrostat) pain #25 tabs amlodipine 5 mg tablet 5 mg PO DAILY 08/28/21 11/25/24 11/23/24 History potassium chloride 10 mEq 10 meq PO EVERY OTHER DAY #90 tabs 08/28/21 11/24/24 11/22/24 Rx tablet,extended release zinc 50 mg tablet 50 mg PO DAILY 09/27/21 11/24/24 10/25/24 History ascorbic acid (vitamin C) 500 mg 500 mg PO DAILY 09/11/22 11/25/24 11/23/24 History capsule escitalopram oxalate 10 mg tablet 10 mg PO DAILY 09/11/22 11/25/24 11/23/24 History Bone growth stimulator. #1 ea 10/07/22 09/12/24 Unknown Rx cam boot right foot #1 ea 11/06/22 09/12/24 Unknown Rx furosemide 20 mg tablet See Rx Instructions .Route 11/21/22 11/25/24 11/23/24 Rx .COMPLEX #180 tabs semaglutide 0.25 mg or 0.5 mg (2 0.25 mg SUBCUT DIRECTED 11/21/22 11/25/24 11/15/24 History mg/3 mL) subcutaneous pen injector (Ozempic) Allergies Allergy/AdvReac Type Severity Reaction Status Date / Time Sulfa (Sulfonamide Allergy Unknown break out Verified 11/25/24 07:55 Antibiotics) and has trouble breathing [facility] Anesthesia Medical History (Updated 11/25/24 @ 08:33 by Chadd Hopkins DPM) Chest pain Opioid contract exists History of 2019 novel coronavirus disease (COVID-19) Gait instability Near syncope Pulmonary sarcoidosis Diabetes mellitus Chronic migraine Sarcoidosis Shortness of breath ASHD (arteriosclerotic heart disease) HTN (hypertension) Diastolic heart failure History of [place] (myocardial infarction) Surgical History S/P hysterectomy S/P carpal tunnel release History of elbow surgery History of heart artery stent Family History Mother Bleeding disorder Father Diabetes Hyperlipidemia Hypertension Heart disease Brother Diabetes Hypertension Sister Hypertension Thyroid disease Family/Other Breast cancer maternal and paternal aunt Colon cancer paternal uncles Prostate cancer paternal uncle Denies family history of Cervical cancer Ovarian cancer Uterine cancer Stroke Social History Smoking and tobacco/nicotine status: never used tobacco/nicotine Substance/Drug Use: never Do you think of yourself as: Straight/Heterosexual Data Anesthesia Cardiac Studies: Echocardiogram 01/07/21 Echocardiogram Ultrasound 10/07/19
[2024-11-25] MEDS: insulin regular-human 100 units/1 mL 3 UNIT IVP (09:03)
[2024-11-25] MEDS: ceFAZolin 2,000 mg SDV 2000 MG IVP (09:25)
[2024-11-25] MEDS: BUPivacaine 0.5% INJ 10 mL INJECTION (09:50)
[2024-11-25] MEDS: BUPivacaine liposome 13.3 mg/mL SDV 20 mL 266 MG INJECTION (09:50)
--- NOTE | 2024-11-25 10:46 | P.OP_ITS ---
Operative Report Date of procedure: November 25, 2024 Pre-op diagnosis: Painful orthopaedic hardware T84.84XA Post-op diagnosis: Painful orthopaedic hardware T84.84XA Procedure done: Hardware removal right ankle. CPT code 46789 Implants: 3-0 Vicryl, 4-0 nylon. Surgeon: Chadd Hopkins DPM [employer] Teacher: Noam Estimated blood loss: 2 63 IV fluids: See intraoperative documentation Urine output: None Brief History: Syndesmotic screw has released in the tib-fib space radiographic signs of irritation hyperostosis this correlates to area of pain subjectively and clinically discussed syndesmotic screw removal scratch that the patient would like to proceed November 25, 2024. I reviewed at length with the patient, the risks, potential complications, benefits, alternatives, expectations, and typical outcomes associated with the surgery. The risks and potential complications were explained in detail, including but not limited to infection, wound dehiscence or soft tissue complications, bleeding and hematoma, chronic edema, neuritis or nerve damage producing numbness or chronic pain, CRPS, failure to relieve pain or worsening pain, thick / painful / unsightly scar, limited motion / stiffness, malposition, delayed union, malunion, or nonunion, fracture, reaction to implants, anesthetic complications, venous thromboembolism, and deformity recurrence. I discussed the notion of no regrets with the patient as it pertains to complications and outcomes. The patient seemed to understand the nature of the proposed care and required convalescence. They asked appropriate questions, answered to their satisfaction. They are aware no guarantees can be made as to a satisfactory outcome and they understand there may be other possible unforeseen complications or outcomes not listed here that will be treated accordingly if they arise. There were no written or implied guarantees given to the patient. They gave informed consent to proceed Procedure: Under mild sedation the patient was brought to the operating room and remained on the gurney in supine position. A timeout was performed. Anesthesia was administered by the anesthesia service. Local anesthesia injected by myself consisting of 20 cc of 0.5% Marcaine plain in a V-block fashion to the proximal lateral right ankle proximal to the planned operative site with an additional 20 cc of Exparel infiltrated subcutaneously in a grid like fashion proximal to the operative site. Well-padded pneumatic tourniquet applied to the patient's right high calf. Right lower extremity was scrubbed, prepped and draped utilizing normal aseptic technique. Right foot and ankle were then exanguinated with an Esmarch bandage and tourniquet inflated to 250 mmHg. Attention was directed to the previous cicatrix where a 3 cm linear longitude incision was performed with a #15 blade with dissection carried down to the layer of hardware utilizing a combination of sharp and blunt technique. Care was taken to retract and preserve neurovascular and tendinous structures. All bleeders were ligated and cauterized as necessary. [place] reactive screw removal attempt was made per manufacture recommendation and surgical technique starting with a guidewire to release internal suture, was able to back out the head and fibular portion of the screw and all attempts to remove the tibial portion were futile. Determination was made that surgical trauma required to try find around tibial screw would be too invasive and likely not affect outcomes for this reason the tibial portion was left intact, having removed the lateral portion, head and suture release the syndesmosis will be unrestrained and can now freely undergo micromotion this was demonstrated in clinic with smooth range of motion at the ankle joint intraoperatively. The incision was irrigated saline solution and closed in a layered fashion with 3-0 Vicryl and 4- 0 nylon. The incision was dressed with Xeroform, sterile gauze Kerlix and Chevy wrap followed by application of a postop shoe. Tourniquet was deflated and a prompt hyperemic response is noted to the distal digits of the right foot. Patient tolerated the procedure and anesthesia well and was transferred to the PACU with vital signs stable and vascular status intact. Following a period of postoperative monitoring should be discharged home without home care instructions and scheduled follow-up.
--- NOTE | 2024-11-25 10:46 | W.PM.BPON ---
Date of Procedure: 07/31/23 Surgeon: Chadd Hopkins DPM Senior Administrator Support(s): Tomi hardware removal right ankle Procedure(s) performed: [] Findings of the procedure(s): None Estimated blood loss: 2 mL Specimen(s) removed: None Post-operative diagnosis: Painful hardware right ankle
--- NOTE | 2024-11-25 10:47 | PC.NURSE ---
approved partial explant to be taken home with patient once decontamination of said explant has taken place.
[2024-11-25] MEDS: fentaNYL 50 mcg/mL INJ 2mL IVP ×2 (10:59→11:04)
[2024-11-25] MEDS: HYDROmorphone 1 mg/mL INJ 1ml 0.5 MG IVP (11:09)
[2024-11-25] MEDS: HYDROcodone-acetaminophen 10-325 mg Tablet 1 TAB PO (11:51)
--- NOTE | 2024-11-25 12:20 | ANE.PACU2 ---
Inpatient post-anesthesia follow up: Airway intact: Yes Vital signs: Temperature 97.0 F Pulse Rate 71 Respiratory Rate 17 Blood Pressure 162/77 Pulse Oximetry 96 Oxygen Delivery Me thod Room Air Oxygen Flow Rate Fraction of Inspir ed Oxygen Hydration adequate: Yes Nausea and vomiting: No Pain level: 1 Mental status: Baseline
--- NOTE | 2024-11-25 12:32 | PC.NURSE ---
1120 PT Complaining of calf pain after Fentanyl and dilaud given for pain. Contacted Dr. West to discuss pain. He feels it was from the tourniquet in the or room. Will continue to monitor.
== END 2024-11-25 12:20 | disposition home or self-care (01) ==
PROVIDERS: PCP Internal Medicine; Visit Provider Podiatrist Foot & Ankle Surgery
PROC: (CPT 20680; principal; 2024-11-25 09:25)
DX: T84.84XA Pain due to internal orthopedic prosthetic devices, implants and grafts, initial encounter (principal); Z47.2 Encounter for removal of internal fixation device; D86.9 Sarcoidosis, unspecified; E11.9 Type 2 diabetes mellitus without complications; K21.9 Gastro-esophageal reflux disease without esophagitis; Z79.84 Long term (current) use of oral hypoglycemic drugs; I25.2 Old myocardial infarction; I25.10 Atherosclerotic heart disease of native coronary artery without angina pectoris; I50.30 Unspecified diastolic (congestive) heart failure; I11.0 Hypertensive heart disease with heart failure
CPT/HCPCS: 20680; 36416; 82962; C1713; J0666; J0690; J1171; J1815; J2250; J2704; J3010; J3490; J7030; J9999

== ENCOUNTER → 2024-12-02 09:26 | Outpatient (BNVA) | payer MEDICARE, SELFPAY | PROVIDERS: PCP Internal Medicine; Visit Provider Internal Medicine Cardiovascular Disease | DX: I11.0 Hypertensive heart disease with heart failure (principal); I25.10 Atherosclerotic heart disease of native coronary artery without angina pectoris; E78.5 Hyperlipidemia, unspecified; I50.9 Heart failure, unspecified; T84.84XA Pain due to internal orthopedic prosthetic devices, implants and grafts, initial encounter; Y82.8 Other medical devices associated with adverse incidents | CPT/HCPCS: 99204 ==

== ENCOUNTER → 2024-12-08 11:05 | Outpatient (BNVA) | payer MEDICARE, SELFPAY | PROVIDERS: PCP Internal Medicine; Visit Provider Podiatrist Foot & Ankle Surgery | DX: Z98.890 Other specified postprocedural states (principal) | CPT/HCPCS: 99024 ==

== ENCOUNTER → 2024-12-27 09:59 | Outpatient (BNVA) | payer MEDICARE, SELFPAY | PROVIDERS: PCP Internal Medicine; Visit Provider Nurse Practitioner Family | DX: L81.4 Other melanin hyperpigmentation (principal); L57.8 Other skin changes due to chronic exposure to nonionizing radiation; L82.1 Other seborrheic keratosis; D22.39 Melanocytic nevi of other parts of face; Z08 Encounter for follow-up examination after completed treatment for malignant neoplasm; Z85.820 Personal history of malignant melanoma of skin; L82.0 Inflamed seborrheic keratosis; L53.8 Other specified erythematous conditions; R58 Hemorrhage, not elsewhere classified; R20.8 Other disturbances of skin sensation; L29.89 Other pruritus; Z78.9 Other specified health status | CPT/HCPCS: 11102; 17110; 99213 ==

== ENCOUNTER 2025-01-12 10:01 | Outpatient (CLI) | payer MEDICARE, SELFPAY ==
--- NOTE | 2025-01-12 10:11 | FL_ITS ---
WS: [id number] Exam: FL barium swallow modifd [id number] Date/Time of Exam: 01/12/2025 10:13 AM Reason For Exam: Other dysphagia Fluoroscopy time: 2min [id number] minutes # of spot films: 0 Modified barium swallow was performed in conjunction with the speech therapy service. Oral pharyngeal phase of swallowing was normal. The patient tolerated all consistencies of barium mixture foodstuffs without aspiration or penetration. The patient ingested a barium tablet without difficulty. FL/FL barium swallow modifd [id number] IMPRESSION: 1. Unremarkable modified barium swallow study. A separate report with recommendations will follow from the speech therapy serv ice.
== END 2025-01-12 10:02 | disposition home or self-care (01) ==
LOC: RAD 10:04
PROVIDERS: PCP Internal Medicine; Visit Provider Nurse Practitioner Family
DX: R13.19 Other dysphagia (principal)
CPT/HCPCS: 74230; 92611

== ENCOUNTER → 2025-02-06 10:45 | Outpatient (BNVA) | payer MEDICARE, SELFPAY | PROVIDERS: PCP Internal Medicine; Visit Provider Podiatrist Foot & Ankle Surgery | DX: M25.572 Pain in left ankle and joints of left foot (principal); M76.822 Posterior tibial tendinitis, left leg; Z98.890 Other specified postprocedural states; E11.42 Type 2 diabetes mellitus with diabetic polyneuropathy; Z79.84 Long term (current) use of oral hypoglycemic drugs; Z79.85 Long-term (current) use of injectable non-insulin antidiabetic drugs | CPT/HCPCS: 73610; 99214 ==

== ENCOUNTER 2025-02-13 11:45 | Outpatient (CLI) | payer MEDICARE, SELFPAY ==
--- NOTE | 2025-02-13 | XR_ITS ---
WS: [email or web address] XR lumbar spine 2-3V* [id number] REASON FOR EXAM: DEGENERATIVE DISC DISEASE, LUMBOSACRAL SPINE FINDINGS: Mild rotatory levoscoliosis. Mildly exaggerated lumbar lordosis. Mild superior endplate compression deformities T12-L5. Mild narrowing of the intervertebral disc spaces at L2-L3, L4-L5 and L5-S1. Mild endplate sclerosis and osteophytosis L1-S1. No spondylolysis. 2 to 3 mm of anterolisthesis of L5 in relation to L4 and S1. Incidentally noted is extensive calcification of intra-abdominal and intrathoracic lymph nodes. XR/XR lumbar spine 2-3V* [id number] IMPRESSION: Degenerative spondylosis as above.
--- NOTE | 2025-02-13 12:15 | XR_ITS ---
WS: [email or web address] XR thoracic spine 3V* [id number] REASON FOR EXAM: DEGENERATION OF THORACIC INTERVERTEBRAL DISC FINDINGS: Relatively normal thoracic spine curvatures. No significant vertebral body compression deformity or focal vertebral body lesion. Mild disc space narrowing with mild endplate sclerosis and osteophytosis in the mid and lower thoracic spine. Extensive calcified adenopathy in the chest. XR/XR thoracic spine 3V* [id number] IMPRESSION: Degenerative spondylosis of the thoracic spine as above.
== END 2025-02-13 11:46 | disposition home or self-care (01) ==
PROVIDERS: PCP Internal Medicine; Visit Provider Internal Medicine
DX: M47.894 Other spondylosis, thoracic region (principal); M25.78 Osteophyte, vertebrae; M41.9 Scoliosis, unspecified; G95.89 Other specified diseases of spinal cord; M47.817 Spondylosis without myelopathy or radiculopathy, lumbosacral region
CPT/HCPCS: 72072; 72100

== ENCOUNTER 2025-03-23 11:43 | Outpatient (CLI) | payer MEDICARE, SELFPAY | END 2025-03-23 11:44 | disposition home or self-care (01) | LOC: SPT 11:44 | PROVIDERS: PCP Internal Medicine; Visit Provider Podiatrist Foot & Ankle Surgery | DX: Z47.89 Encounter for other orthopedic aftercare (principal); Z98.890 Other specified postprocedural states; E11.42 Type 2 diabetes mellitus with diabetic polyneuropathy; M76.829 Posterior tibial tendinitis, unspecified leg | CPT/HCPCS: 97161 ==

== ENCOUNTER → 2025-04-24 09:52 | Outpatient (BNVA) | payer MEDICARE, SELFPAY | PROVIDERS: PCP Internal Medicine; Visit Provider Podiatrist Foot & Ankle Surgery | DX: M76.72 Peroneal tendinitis, left leg (principal); M65.972 Unspecified synovitis and tenosynovitis, left ankle and foot | CPT/HCPCS: 99213 ==